=== PATIENT | female | born 1955 | race Caucasian/White ===

== ENCOUNTER 2016-06-19 01:36 | Inpatient (IN) | payer OTHER ==
[~2016-06-19 01:36] MED LIST: HYDR-902 PO; LORA1TAB PO; ONDA4TAB95 PO; ZOLP5TAB6 PO
[2016-06-19 03:36] VITALS: BP 108/66; PULSE 99; RESP 18
[2016-06-19] MEDS ORDERED: [UNRECOGNIZED DRUG - OTHER] PO (04:26)
[2016-06-19] MEDS ORDERED: ACETAMINOPHEN 325 MG TAB PO PRN (06:30)
[2016-06-19] MEDS: HYDROmorphONE 1 MG/ML SYG IV PRN ×5 (06:38→22:55)
[2016-06-19 08:00] VITALS: BP 122/69; RESP 19
[2016-06-19] MEDS: HYDROCODONE/APAP (5/325) TAB PO PRN ×4 (08:16→21:08)
[2016-06-19 09:56] LABS: EOSINOPHILS # 0.1 10^3/ul (0.0-0.5); EOSINOPHILS % 0.5 % (0.0-7.0); HEMATOCRIT 26.9 % (37.0-47.0); HEMOGLOBIN 8.7 g/dl (12.0-16.0); LYMPHOCYTES # 0.3 10^3/ul (0.8-2.9); LYMPHOCYTES % 2.6 % (15.0-51.0); MEAN CORPUSCULAR HEMOGLOBIN 26.4 pg (29.0-33.0); MEAN CORPUSCULAR HGB CONC 32.3 g/dl (32.0-37.0); MEAN CORPUSCULAR VOLUME 81.8 fl (82.0-101.0); MONOCYTE # 0.4 10^3/ul (0.3-0.9); MONOCYTES % 3.6 % (0.0-11.0); NEUTROPHIL # 10.6 10^3/ul (1.6-7.5); NEUTROPHILS % 93.3 % (39.0-77.0); PLATELET COUNT 538 10^3/UL (140-440); RED BLOOD COUNT 3.29 10^6/ul (4.20-5.40); RED CELL DISTRIBUTION WIDTH 17.4 % (11.5-14.5); UNCORRECTED WBC 11.4 10^3/ul (4.8-10.8); WHITE BLOOD COUNT 11.4 10^3/ul (4.8-10.8)
[2016-06-19 10:03] LABS: ALBUMIN 2.8 g/dl (3.3-4.9); CONDITION 1; LH ANALYZER COMMENTS 1; POTASSIUM 3.7 mmol/L (3.5-5.1)
[2016-06-19 10:06] LABS: ALBUMIN/GLOBULIN RATIO 0.63; CALCIUM 8.2 mg/dl (8.4-10.2); CREATININE 0.4 mg/dl (0.44-1.00); TOTAL PROTEIN 7.2 g/dl (6.1-8.1)
--- NOTE | 2016-06-19 13:06 | HP ---
DATE OF ADMISSION: 06/19/2016 HISTORY OF PRESENT ILLNESS: Winter Muse is an elderly female with history of esophageal cancer, h istory of esophageal stent, history of chemotherapy, Port-A-Cath, history of pneumonia, anemia, hist ory of G-tube placement and removal, taken to [facility], transferred here because the jordan ent is capitated to this hospital. The patient received Zofran, Rocephin, IV fluid, Dilaudid, and a zithromycin. PAST MEDICAL HISTORY: Please review the old chart for detailed history. Briefly, the patient has a history of esophageal CA, history of chemotherapy, history of esophageal stent, history of pneumoni a, anemia, chronic pain, dysphagia. ALLERGY HISTORY: UNCHANGED. FAMILY HISTORY: Unchanged. SOCIAL HISTORY: Unchanged. MEDICATION HISTORY: The patient's home medicines at the time of this dictation is not available. REVIEW OF SYSTEMS: HEENT: Unremarkable. RESPIRATORY: Cough, short of breath. CARDIOVASCULAR: No chest pain, palpitation. ABDOMEN: As mentioned above. EXTREMITIES: Unremarkable. PHYSICAL EXAMINATION: GENERAL: The patient is awake and alert, not in any acute respiratory distress. VITAL SIGNS: Pulse 102, blood pressure 102/66. HEAD: Atraumatic, normocephalic. Pupils equal, reactive to light. NECK: Supple. No JVD. LUNGS: A few rhonchi at bases. CARDIOVASCULAR: S1, S2 are normal. ABDOMEN: Soft, nontender. Bowel sounds present. No palpable mass or hepatosplenomegaly. No guard ing, rebound tenderness. EXTREMITIES: No cyanosis, clubbing, or edema. CENTRAL NERVOUS SYSTEM: The patient is awake and alert. No focal deficit. SKIN: The patient has a Port-A-Cath in the chest noted, right. LABORATORY DATA: Sodium 130, potassium 4.1. The patient's hemoglobin 8.6, hematocrit 26.4, platele t count 498. The patient's urinalysis was reported as negative. IMPRESSION: 1. Lung infiltrate. 2. The patient has insufficiency. 3. History of stent placement. 4. History of dyspepsia. 5. History of peptic ulcer disease. 6. History of anemia. 7. History of blood transfusion. 8. History of chemotherapy. 9. History of Port-A-Cath placement. 10. History of multiple episodes of possible aspiration pneumonia. PLAN: At this point is to continue current antibiotics, IV fluid, pain medications, PPI, and the pa tient will get oncology/hematology consultation. Dictated By: OK LOZANO MD BS/NTS Conf#: [id number] DID#: [id number]
[2016-06-19] MEDS: ALTEPLASE (CATHFLO) 2 MG INJ CATHETER PRN (16:51)
[2016-06-19 20:00] VITALS: BP 117/77; RESP 18
[2016-06-19] MEDS: CEFTRIAXONE 1 GM/50 ML (PMX) 50 ML IVPB SCH (21:07)
[2016-06-19] MEDS: AZITHROMYCIN 500MG/NS (PMX) 250 ML IVPB SCH (22:05)
[2016-06-19] MEDS: HYDROCODONE/HOMATROPINE 5ML CUP PO PRN (22:55)
[2016-06-20] MEDS: HYDROmorphONE 1 MG/ML SYG IV PRN ×6 (02:53→23:03)
[2016-06-20 05:37] LABS: EOSINOPHILS % 0.1 % (0.0-7.0); HEMATOCRIT 27.8 % (37.0-47.0); LYMPHOCYTES # 0.5 10^3/ul (0.8-2.9); LYMPHOCYTES % 4.7 % (15.0-51.0); MEAN CORPUSCULAR HEMOGLOBIN 26.7 pg (29.0-33.0); MEAN CORPUSCULAR HGB CONC 32.5 g/dl (32.0-37.0); MEAN CORPUSCULAR VOLUME 82.2 fl (82.0-101.0); MEAN PLATELET VOLUME 6.1 fl (7.4-10.4); MONOCYTE # 0.4 10^3/ul (0.3-0.9); MONOCYTES % 4.2 % (0.0-11.0); NEUTROPHIL # 9.4 10^3/ul (1.6-7.5); PLATELET COUNT 559 10^3/UL (140-440); RED BLOOD COUNT 3.39 10^6/ul (4.20-5.40); UNCORRECTED WBC 10.3 10^3/ul (4.8-10.8); WHITE BLOOD COUNT 10.3 10^3/ul (4.8-10.8)
[2016-06-20 05:55] LABS: CONDITION 1; LH ANALYZER COMMENTS 1
[2016-06-20] MEDS: PANTOPRAZOLE 40 MG INJ IV SCH (05:59)
[2016-06-20] MEDS: ALTEPLASE (CATHFLO) 2 MG INJ CATHETER PRN (06:22)
[2016-06-20] MEDS: HYDROCODONE/HOMATROPINE 5ML CUP PO PRN ×2 (07:46→17:20)
[2016-06-20 08:00] VITALS: BP 129/79; PULSE 107; RESP 18
[2016-06-20] MEDS: HYDROCODONE/APAP (5/325) TAB PO PRN (08:23)
--- NOTE | 2016-06-20 12:26 | CONS ---
Date/Time of Note Date/Time of Note DATE: 06/20/16 TIME: 12:13 Assessment/Plan Assessment/Plan Chief Complaint/Hosp Course The patient is a 60 year old woman with locally advanced esophageal cancer with history of radiation pneumonitis, most recently on xeloda 1500 mg PO BID, now readmitted for pneumonia. - Ok to hold xeloda for now while being treated for pneumonia, patient was not taking at home for the past 4 days due to lack of appetite and inability to eat. Discussed with Dr. Espinosa, thought perhaps CXR more suggestive of atelectasis than pneumonia. Will order CT chest to further evaluate. During her last hospitalization, CT was read as radiation pneumonitis, which was not a new finding but superimposed infection could not be ruled out; given clinical improvement with antibiotics, we did think she likely had a superimposed infection. - continue antibiotics for pneumonia per primary MD - will continue to follow Problems: Consultation Date/Type/Reason Admit Date/Time Jun 19, 2016 at 03:07 Date of Consultation: Jun 20, 2016 Reason for Consultation Hematology/Oncology Hx of Present Illness The patient is a 60 year old woman with locally advanced esophageal cancer, originally diagnosed in 2014 with tumor on EGD extending from 30cm to the gastroesophageal junction at 40 cm, with circumferential biopsies showing adenocarcinoma, moderate to poorly differentiated. She subsequently had an esophageal metallic stent placed on March 10, 2015. She was stared on chemotherapy 05/2015 with carboplatin/taxol until 10/2014, with consolidation with radiation 10/02/2015 until 11/15/15. She reportedly was later switched to FOLFOX after disease progression. She was seen in the hospital in February 2016 when she was admitted for pneumonia. Her CT showed evidence of radiation pneumonitis, which was not a new finding, and given clinical improvement with antibiotics, we did think she had a superimposed infection. She subsequently received FOLFOX on 03/25/16 then was switched to xeloda 1500 mg po BID on by Dr. Davila. She was seen by Dr. Pleitez on 05/06/16 at [facility] who reviewed the latest scans and felt that the tumor is not resectable as it was too extensive and too bulky against the back of the heart and into the roxana and up against the descending aorta. The patient was transferred from [facility], where she was thought to have recurrent pneumonia. She states that she started feeling short of breath for the past 2 weeks with loss of appetite, to the point where she felt that she "could not breathe at all." She states that she stopped taking xeloda 4 days ago because she had no appetite and was not eating. She denies vomiting. She has not been able to eat but has only had ensure and has lost 20 pounds over the past month. She previously had a feeding tube but it was removed because she states that it was painful. Past Medical History Hypertension Esophageal cancer as above Peptic ulcer disease Multiple episodes of possible aspiration pneumonia Family History Significant Family History: cancer (brother wtih colon cancer, aunt with leukemia, another aunt with esophageal/throat/stomach cancer) Social History Alcohol Use: none Smoking Status: Former smoker Exam/Review of Systems Vital Signs Vitals Vital Signs Date Time Temp Pulse Resp B/P Pulse Ox O2 Delivery O2 Flow Rate FiO2 06/20/16 08:00 99.1 107 18 129/79 97 Room Air Intake and Output 06/19/16 06/19/16 06/20/16 15:00 23:00 07:00 Intake Total 50 ml 550 ml Balance 50 ml 550 ml Exam Constitutional: alert Psych: no complaints Head: normocephalic Eyes: nl conjunctiva Neck: non-tender, supple Respiratory: crackles/rales, wheezing Cardiovascular: regular rate and rhythm Gastrointestinal: non-tender, soft Musculoskeletal: nl extremities to inspection Neurological: CRITICAL CARE NURSE PRACTITIONER II-XII intact Results 06/18/16 CXR at [facility] 1. Increased opacities in the medial right lower lobe, concerning for infiltrates. The patient does have a known history of an esophageal mass. Consider CT chest for better evaluation. 2. Obscured bilateral costophrenic angles, for which underlying small pleural effusions cannot be excluded. 3. A metallic esophageal stent and right-sided IJ Port-A-Cath remain unchanged. Result Diagram: 06/20/16 0455 06/19/16 0920 Results 24 hrs Laboratory Tests Test 06/20/16 04:55 Basophils # 0.0 Basophils % 0.0 Blood Morphology Comment Eosinophils # 0.0 Eosinophils % 0.1 Hematocrit 27.8 L Hemoglobin 9.0 L Lymphocytes # 0.5 L Lymphocytes % 4.7 L Mean Corpuscular Hemoglobin 26.7 L Mean Corpuscular Hemoglobin Concent 32.5 Mean Corpuscular Volume 82.2 Mean Platelet Volume 6.1 L Monocytes # 0.4 Monocytes % 4.2 Neutrophils # 9.4 H Neutrophils % 91.0 H Nucleated Red Blood Cells # 0.0 Nucleated Red Blood Cells % 0.0 Platelet Count 559 H Red Blood Count 3.39 L Red Cell Distribution Width 17.0 H White Blood Count 10.3 Medications Medications Current Medications Ceftriaxone Sodium 50 ml @ 100 mls/hr Q24H IVPB Last administered on at 21:07; Admin Dose 100 MLS/HR; Start 06/19/16 at 21:00 Azithromycin (Zithromax 500mg/ NS (Pmx)) 250 ml @ 250 mls/hr Q24H IVPB Last administered on 06/19/16at 22:05; Admin Dose 250 MLS/HR; Start 06/19/16 at 22: 00 Ondansetron HCl (Zofran Inj) 4 mg Q4H PRN IV NAUSEA AND/OR VOMITING; Start at 06:30 Pantoprazole (Protonix Iv) 40 mg DAILY@06 IV Last administered on 06/20/16at 05 :59; Admin Dose 40 MG; Start 06/20/16 at 06:00 Acetaminophen (Tylenol Tab) 650 mg Q6H PRN PO PAIN AND OR ELEVATED TEMP; Start 06/19/16 at 06:30 Acetaminophen/ Hydrocodone Bitart ([place] (5/325)) 1 tab Q4H PRN PO FOR MODERATE PAIN Last administered on 06/20/16at 08:23; Admin Dose 1 TAB; Start at 06:30 Hydromorphone HCl (Dilaudid) 1 mg Q4H PRN IV FOR SEVERE PAIN Last administered on 06/20/16at 10:50; Admin Dose 1 MG; Start 06/19/16 at 06:30 Zolpidem Tartrate (Ambien) 5 mg HS PRN PO INSOMNIA; Start 06/19/16 at 06:30 Hydrocodone Bit/ Homatropine Methylb (Hycodan Liquid) 5 ml Q6 PRN PO COUGH Last administered on 06/20/16at 07:46; Admin Dose 5 ML; Start 06/19/16 at 22:30 EVERTON CELIS MD Jun 20, 2016 12:23
--- NOTE | 2016-06-20 16:55 | PN ---
Date/Time of Note Date/Time of Note DATE: 06/20/16 TIME: 16:54 Assessment/Plan VTE Prophylaxis VTE Prophylaxis Intervention: other Lines/Catheters [facility]from [facility] PORTACATH Urinary Cath still in place: No Assessment/Plan Chief Complaint/Hosp Course IMPRESSION: 1. Lung infiltrate. 2. The patient has insufficiency. 3. History of stent placement. 4. History of dyspepsia. 5. History of peptic ulcer disease. 6. History of anemia. 7. History of blood transfusion. 8. History of chemotherapy. 9. History of Port-A-Cath placement. 10. History of multiple episodes of possible aspiration pneumonia. PLAN ANTIBIOTIC,PER ONCOLOGY Problems: Subjective 24 Hr Interval Summary Respiratory: shortness of breath (BETTER) Gastrointestinal: no complaints Exam/Review of Systems Vital Signs Vitals Vital Signs Date Time Temp Pulse Resp B/P Pulse Ox O2 Delivery O2 Flow Rate FiO2 06/20/16 08:00 99.1 107 18 129/79 97 Room Air Intake and Output 06/19/16 06/19/16 06/20/16 14:59 22:59 06:59 Intake Total 50 ml 550 ml Balance 50 ml 550 ml Exam Respiratory: clear to auscultation Cardiovascular: regular rate and rhythm Gastrointestinal: soft Musculoskeletal: nl extremities to inspection Extremities: normal pulses Results Result Diagram: 06/20/16 0455 06/19/16 0920 Results 24 hrs Laboratory Tests Test 06/20/16 04:55 Basophils # 0.0 Basophils % 0.0 Blood Morphology Comment Eosinophils # 0.0 Eosinophils % 0.1 Hematocrit 27.8 L Hemoglobin 9.0 L Lymphocytes # 0.5 L Lymphocytes % 4.7 L Mean Corpuscular Hemoglobin 26.7 L Mean Corpuscular Hemoglobin Concent 32.5 Mean Corpuscular Volume 82.2 Mean Platelet Volume 6.1 L Monocytes # 0.4 Monocytes % 4.2 Neutrophils # 9.4 H Neutrophils % 91.0 H Nucleated Red Blood Cells # 0.0 Nucleated Red Blood Cells % 0.0 Platelet Count 559 H Red Blood Count 3.39 L Red Cell Distribution Width 17.0 H White Blood Count 10.3 Medications Medications Current Medications Ceftriaxone Sodium 50 ml @ 100 mls/hr Q24H IVPB Last administered on at 21:07; Admin Dose 100 MLS/HR; Start 06/19/16 at 21:00 Azithromycin (Zithromax 500mg/ NS (Pmx)) 250 ml @ 250 mls/hr Q24H IVPB Last administered on 06/19/16at 22:05; Admin Dose 250 MLS/HR; Start 06/19/16 at 22: 00 Ondansetron HCl (Zofran Inj) 4 mg Q4H PRN IV NAUSEA AND/OR VOMITING; Start at 06:30 Pantoprazole (Protonix Iv) 40 mg DAILY@06 IV Last administered on 06/20/16at 05 :59; Admin Dose 40 MG; Start 06/20/16 at 06:00 Acetaminophen (Tylenol Tab) 650 mg Q6H PRN PO PAIN AND OR ELEVATED TEMP; Start 06/19/16 at 06:30 Acetaminophen/ Hydrocodone Bitart ([place] (5/325)) 1 tab Q4H PRN PO FOR MODERATE PAIN Last administered on 06/20/16at 08:23; Admin Dose 1 TAB; Start at 06:30 Hydromorphone HCl (Dilaudid) 1 mg Q4H PRN IV FOR SEVERE PAIN Last administered on 06/20/16at 14:45; Admin Dose 1 MG; Start 06/19/16 at 06:30 Zolpidem Tartrate (Ambien) 5 mg HS PRN PO INSOMNIA; Start 06/19/16 at 06:30 Hydrocodone Bit/ Homatropine Methylb (Hycodan Liquid) 5 ml Q6 PRN PO COUGH Last administered on 06/20/16at 07:46; Admin Dose 5 ML; Start 06/19/16 at 22:30 OK LOZANO MD Jun 20, 2016 16:55
[2016-06-20] MEDS: ONDANSETRON 4 MG INJ IV PRN (17:20)
[2016-06-20] MEDS: ALBUTEROL/IPRATROPIUM (NEB) 3 ML AMP HHN PRN (19:32)
[2016-06-20 20:00] VITALS: BP 113/73; PULSE 104; RESP 20
[2016-06-20] MEDS: CEFTRIAXONE 1 GM/50 ML (PMX) 50 ML IVPB SCH (21:02)
[2016-06-20] MEDS: AZITHROMYCIN 500MG/NS (PMX) 250 ML IVPB SCH (21:52)
--- NOTE | 2016-06-20 23:06 | RADRPT ---
PROCEDURE: CT Chest without contrast. CLINICAL INDICATION: Shortness of breath. TECHNIQUE: Helical axial sections were obtained through the chest without intravenous contrast enh ancement. Coronal and sagittal reformatted images were obtained from the axial source images. Total exam DLP is 167.70 mGy-cm. CTDIvol is 4.48 mGy. COMPARISON: Contrast enhanced CT scan of the chest dated 02/21/2016. FINDINGS: There is dense consolidation in both lung bases posteriorly, worse than seen previously. Bilateral hilar masses cannot be definitively excluded. The aerated lungs demonstrate no nodule. There is a stent in the esophagus. The stent may be occluded proximally due to a foreign body or tu mor ingrowth. Soft tissue is noted at this site measuring approximately 1.8 x 1.8 x 2.0 cm in AP, t ransverse, and cranial caudal dimensions. In addition, multiple gas bubbles are present to the right of the esophagus which may indicate necrotic tumor. There is a right internal jugular vein implanted port central venous catheter with the tip in the ca voatrial junction region. The heart size is normal. There is coronary artery calcification. Calci fication is present in the aorta consistent with atherosclerosis. There is a large right pleural effusion and a small left pleural effusion. There is no pericardial effusion. Images through the upper abdomen demonstrate normal visualized portions of the liver, spleen, and ad renals. The esophageal stent is visualized in the upper stomach. There is an acute superior endplate fracture of the L1 vertebral body with approximately 40% loss of height. There are degenerative changes of the spine. There are old healed left rib fractures. IMPRESSION: 1. Worse appearance of the lungs. 2. Possible bilateral hilar masses. 3. Esophageal stent in satisfactory position. The stent may be occluded proximally due to a foreig n body or tumor ingrowth. Clinical correlation advised as there is gas and fluid in dilated esophag us proximal to the stent. 4. Gas bubbles to the right of the esophagus which may indicate necrotic tumor. 5. Central venous catheter in satisfactory position. 6. Atherosclerosis. 7. Large right pleural effusion and small left pleural effusion. 8. Acute superior endplate fracture of L1 vertebral body with approximately 40% loss of height. Th is may be due to neoplasm at this site. 9. Old healed left rib fractures. RPTAT: QQ .Jarrod Mckoy MD, MD Date Time Electronically viewed and signed by .Jarrod Mckoy MD, on 06/20/2016 23:06 .R/
--- NOTE | 2016-06-20 23:14 | RADRPT ---
PROCEDURE: XR Chest. CLINICAL INDICATION: Shortness of breath. TECHNIQUE: Two views. Frontal and lateral. COMPARISON: 04/19/2016 FINDINGS: There is a right internal jugular vein implanted port central venous catheter with the tip in the ca voatrial junction. The heart size is normal. There is calcification in the aorta consistent with a therosclerosis. There is an esophageal stent in satisfactory position, unchanged. There is dense consolidation or a mass in the right mid and lower lung zones, larger than seen previously. There is left basilar atel ectasis. The lungs are otherwise clear. There is a moderate right pleural effusion and small left pleural effusion. There is no pneumothorax. IMPRESSION: 1. Right chest Port-A-Cath and esophageal stent noted as seen previously. 2. Worse appearance of the right lung with mass or consolidation. 3. Bilateral pleural effusions, right larger than left. RPTAT: QQ .aJrrod Mckoy MD, MD Date Time Electronically viewed and signed by .Jarrod Mckoy MD, MD on 06/20/2016 23:14 .R/
[2016-06-21] MEDS: HYDROCODONE/HOMATROPINE 5ML CUP PO PRN ×4 (01:17→21:56)
[2016-06-21] MEDS: HYDROmorphONE 1 MG/ML SYG IV PRN ×6 (02:58→23:38)
[2016-06-21] MEDS: PANTOPRAZOLE 40 MG INJ IV SCH (05:40)
[2016-06-21 07:30] VITALS: BP 118/94; PULSE 104; RESP 20
[2016-06-21] MEDS: HYDROCODONE/APAP (5/325) TAB PO PRN ×3 (08:31→20:53)
--- NOTE | 2016-06-21 13:05 | CONS ---
Date/Time of Note Date/Time of Note DATE: 06/21/16 TIME: 13:01 Assessment/Plan Assessment/Plan Chief Complaint/Hosp Course The patient is a 60 year old woman with locally advanced esophageal cancer with history of radiation pneumonitis, most recently on xeloda 1500 mg PO BID, now readmitted for pneumonia. - Ok to hold xeloda for now while being treated for pneumonia, patient was not taking at home for the past 4 days due to lack of appetite and inability to eat. - CT chest 06/20/16 shows dense consolidation in both lung bases posteriorly, worse than seen previously, with large right pleural effusion and a small left pleural effusion. - Continue antibiotics per primary MD - I have ordered an ultrasound guided thoracentesis for 06/22/16 with IR given large right pleural effusion seen on CT, as may be contributing to dyspnea. Fluid cytology, protein, LDH, glucose and pH ordered, along with serum LDH. Coags ordered for tomorrow a.m., patient NPO after midnight. - will continue to follow Problems: Consultation Date/Type/Reason Admit Date/Time Jun 19, 2016 at 03:07 Initial Consult Date 06/21/16 Type of Consultation: Hematology/Oncology 24 HR Interval Summary Free Text/Dictation The patient states that her breathing and cough are roughly the same as on admission. Exam/Review of Systems Vital Signs Vitals Vital Signs Date Time Temp Pulse Resp B/P Pulse Ox O2 Delivery O2 Flow Rate FiO2 06/21/16 07:30 99.5 104 20 118/94 95 Room Air Intake and Output 06/20/16 06/20/16 06/21/16 15:00 23:00 07:00 Intake Total 980 ml 200 ml Balance 980 ml 200 ml Exam Constitutional: alert Psych: no complaints Head: normocephalic Eyes: nl conjunctiva Neck: non-tender, supple Respiratory: crackles/rales, wheezing Cardiovascular: regular rate and rhythm Gastrointestinal: non-tender, soft Musculoskeletal: nl extremities to inspection Neurological: RAW HIDE TRIMMER II-XII intact Results CT chest non-contrast 06/20/16 There is dense consolidation in both lung bases posteriorly, worse than seen previously. Bilateral hilar masses cannot be definitively excluded. The aerated lungs demonstrate no nodule. There is a stent in the esophagus. The stent may be occluded proximally due to a foreign body or tumor ingrowth. Soft tissue is noted at this site measuring approximately 1.8 x 1.8 x 2.0 cm in AP, transverse, and cranial caudal dimensions. In addition, multiple gas bubbles are present to the right of the esophagus which may indicate necrotic tumor. There is a right internal jugular vein implanted port central venous catheter with the tip in the cavoatrial junction region. The heart size is normal. There is coronary artery calcification. Calcification is present in the aorta consistent with atherosclerosis. There is a large right pleural effusion and a small left pleural effusion. There is no pericardial effusion. Images through the upper abdomen demonstrate normal visualized portions of the liver, spleen, and adrenals. The esophageal stent is visualized in the upper stomach. There is an acute superior endplate fracture of the L1 vertebral body with approximately 40% loss of height. There are degenerative changes of the spine. There are old healed left rib fractures. IMPRESSION: 1. Worse appearance of the lungs. 2. Possible bilateral hilar masses. 3. Esophageal stent in satisfactory position. The stent may be occluded proximally due to a foreign body or tumor ingrowth. Clinical correlation advised as there is gas and fluid in dilated esophagus proximal to the stent. 4. Gas bubbles to the right of the esophagus which may indicate necrotic tumor. 5. Central venous catheter in satisfactory position. 6. Atherosclerosis. 7. Large right pleural effusion and small left pleural effusion. 8. Acute superior endplate fracture of L1 vertebral body with approximately 40 % loss of height. This may be due to neoplasm at this site. 9. Old healed left rib fractures. Result Diagram: 06/20/16 0455 06/19/16 0920 Medications Medications Current Medications Ceftriaxone Sodium 50 ml @ 100 mls/hr Q24H IVPB Last administered on at 21:02; Admin Dose 100 MLS/HR; Start 06/19/16 at 21:00 Azithromycin (Zithromax 500mg/ NS (Pmx)) 250 ml @ 250 mls/hr Q24H IVPB Last administered on 06/20/16at 21:52; Admin Dose 250 MLS/HR; Start 06/19/16 at 22: 00 Ondansetron HCl (Zofran Inj) 4 mg Q4H PRN IV NAUSEA AND/OR VOMITING Last administered on 06/20/16at 17:20; Admin Dose 4 MG; Start 06/19/16 at 06:30 Pantoprazole (Protonix Iv) 40 mg DAILY@06 IV Last administered on 06/21/16at 05 :40; Admin Dose 40 MG; Start 06/20/16 at 06:00 Acetaminophen (Tylenol Tab) 650 mg Q6H PRN PO PAIN AND OR ELEVATED TEMP; Start 06/19/16 at 06:30 Acetaminophen/ Hydrocodone Bitart ([place] (5/325)) 1 tab Q4H PRN PO FOR MODERATE PAIN Last administered on 06/21/16at 08:31; Admin Dose 1 TAB; Start at 06:30 Hydromorphone HCl (Dilaudid) 1 mg Q4H PRN IV FOR SEVERE PAIN Last administered on 06/21/16at 11:20; Admin Dose 1 MG; Start 06/19/16 at 06:30 Zolpidem Tartrate (Ambien) 5 mg HS PRN PO INSOMNIA; Start 06/19/16 at 06:30 Hydrocodone Bit/ Homatropine Methylb (Hycodan Liquid) 5 ml Q6 PRN PO COUGH Last administered on 06/21/16at 08:29; Admin Dose 5 ML; Start 06/19/16 at 22:30 EVERTON CELIS MD Jun 21, 2016 13:05
--- NOTE | 2016-06-21 18:19 | PN ---
Date/Time of Note Date/Time of Note DATE: 06/21/16 TIME: 18:18 Assessment/Plan VTE Prophylaxis VTE Prophylaxis Intervention: other Lines/Catheters IV [facility]from [facility] PORTACATH Urinary Cath still in place: No Assessment/Plan Chief Complaint/Hosp Course IMPRESSION: 1. Lung infiltrate. 2. The patient has insufficiency. 3. History of stent placement. 4. History of dyspepsia. 5. History of peptic ulcer disease. 6. History of anemia. 7. History of blood transfusion. 8. History of chemotherapy. 9. History of Port-A-Cath placement. 10. History of multiple episodes of possible aspiration pneumonia. PLAN ANTIBIOTIC,PER ONCOLOGY Problems: Subjective 24 Hr Interval Summary Cardiovascular: no complaints Gastrointestinal: no complaints Genitourinary: no complaints Exam/Review of Systems Vital Signs Vitals Vital Signs Date Time Temp Pulse Resp B/P Pulse Ox O2 Delivery O2 Flow Rate FiO2 06/21/16 07:30 99.5 104 20 118/94 95 Room Air Intake and Output 06/20/16 06/20/16 06/21/16 15:00 23:00 07:00 Intake Total 980 ml 200 ml Balance 980 ml 200 ml Exam Neck: supple Respiratory: clear to auscultation Cardiovascular: regular rate and rhythm Gastrointestinal: soft Musculoskeletal: nl extremities to inspection Results Result Diagram: 06/20/16 0455 06/19/16 0920 Medications Medications Current Medications Ceftriaxone Sodium 50 ml @ 100 mls/hr Q24H IVPB Last administered on at 21:02; Admin Dose 100 MLS/HR; Start 06/19/16 at 21:00 Azithromycin (Zithromax 500mg/ NS (Pmx)) 250 ml @ 250 mls/hr Q24H IVPB Last administered on 06/20/16at 21:52; Admin Dose 250 MLS/HR; Start 06/19/16 at 22: 00 Ondansetron HCl (Zofran Inj) 4 mg Q4H PRN IV NAUSEA AND/OR VOMITING Last administered on 06/20/16at 17:20; Admin Dose 4 MG; Start 06/19/16 at 06:30 Pantoprazole (Protonix Iv) 40 mg DAILY@06 IV Last administered on 06/21/16at 05 :40; Admin Dose 40 MG; Start 06/20/16 at 06:00 Acetaminophen (Tylenol Tab) 650 mg Q6H PRN PO PAIN AND OR ELEVATED TEMP; Start 06/19/16 at 06:30 Acetaminophen/ Hydrocodone Bitart ([place] (5/325)) 1 tab Q4H PRN PO FOR MODERATE PAIN Last administered on 06/21/16 16:37; Admin Dose 1 TAB; Start at 06:30 Hydromorphone HCl (Dilaudid) 1 mg Q4H PRN IV FOR SEVERE PAIN Last administered on 06/21/16at 15:22; Admin Dose 1 MG; Start 06/19/16 at 06:30 Zolpidem Tartrate (Ambien) 5 mg HS PRN PO INSOMNIA; Start 06/19/16 at 06:30 Hydrocodone Bit/ Homatropine Methylb (Hycodan Liquid) 5 ml Q6 PRN PO COUGH Last administered on 06/21/16 15:22; Admin Dose 5 ML; Start 06/19/16 at 22:30 OK LOZANO MD Jun 21, 2016 18:19
[2016-06-21 20:00] VITALS: BP 104/57; PULSE 103; RESP 20
[2016-06-21] MEDS: CEFTRIAXONE 1 GM/50 ML (PMX) 50 ML IVPB SCH (20:53)
[2016-06-21] MEDS: AZITHROMYCIN 500MG/NS (PMX) 250 ML IVPB SCH (21:57)
[2016-06-21] MEDS: ZOLPIDEM 5 MG TAB PO PRN (22:02)
[2016-06-22] MEDS: ALBUTEROL/IPRATROPIUM (NEB) 3 ML AMP HHN PRN ×4 (01:44→19:50)
[2016-06-22] MEDS: HYDROmorphONE 1 MG/ML SYG IV PRN ×5 (04:14→20:02)
[2016-06-22 06:23] LABS: INR 1.2; PROTIME 15.3 Sec (12.2-14.2); PT RATIO 1.2
[2016-06-22] MEDS: PANTOPRAZOLE 40 MG INJ IV SCH (06:30)
[2016-06-22 08:00] VITALS: BP 117/74; PULSE 108; RESP 18
[2016-06-22] MEDS ORDERED: LIDOCAINE 1% (MPF) 5 ML VIAL ONE (14:15)
[2016-06-22] MEDS: ACETYLCYSTEINE 20% 4 ML VIAL NEB SCH ×3 (14:30→19:50)
--- NOTE | 2016-06-22 15:17 | RADRPT ---
PROCEDURE: XR Chest. CLINICAL INDICATION: Post thoracentesis TECHNIQUE: Anterior chest x-ray. COMPARISON: 06/20/2016 FINDINGS: There is interval decrease in right pleural effusion. Right perihilar lung mass is unchanged. Right-sided Port-A-Cath catheter is unchanged. There is no evidence of pneumothorax. The heart size is normal. There is atherosclerotic calcification of the aorta. Metallic esophageal stent is seen from the level of the aortic arch into the stomach. This finding is unchanged from previous exam. There is moderate degenerative change of bilateral shoulder joints. IMPRESSION: 1. Interval thoracentesis, without evidence of pneumothorax. 2. Interval decrease in right pleural effusion. 3. Large right perihilar soft tissue mass unchanged. RPTAT: II .Parish Liang MD, Date Time Electronically viewed and signed by .Parish Liang MD, MD on 06/22/2016 15:16 .M/
--- NOTE | 2016-06-22 16:06 | PN ---
Date/Time of Note Date/Time of Note DATE: 06/22/16 TIME: 16:05 Assessment/Plan VTE Prophylaxis VTE Prophylaxis Intervention: other Lines/Catheters IV C[facility] Type (from [facility] port a cath Urinary Cath still in place: No Assessment/Plan Chief Complaint/Hosp Course IMPRESSION: 1. Lung infiltrate./pleural effusion s/p thoracentesis 2. The patient has res insufficiency. 3. History of stent placement. 4. History of dyspepsia. 5. History of peptic ulcer disease. 6. History of anemia. 7. History of blood transfusion. 8. History of chemotherapy. 9. History of Port-A-Cath placement. 10. History of multiple episodes of possible aspiration pneumonia. PLAN ANTIBIOTIC,PER ONCOLOGY ck pleural report Problems: Subjective 24 Hr Interval Summary Respiratory: shortness of breath (better) Exam/Review of Systems Vital Signs Vitals Vital Signs Date Time Temp Pulse Resp B/P Pulse Ox O2 Delivery O2 Flow Rate FiO2 06/22/16 10:18 100 18 96 21 06/22/16 08:00 99.2 117/74 06/21/16 07:30 Room Air Intake and Output 06/21/16 06/21/16 06/22/16 15:00 23:00 07:00 Intake Total 960 ml 540 ml Balance 960 ml 540 ml Exam Respiratory: diminished breath sounds Cardiovascular: regular rate and rhythm Gastrointestinal: soft Musculoskeletal: nl extremities to inspection Results Result Diagram: 06/20/16 0455 06/19/16 0920 Results 24 hrs Laboratory Tests Test 06/22/16 05:32 INR International Normalized Ratio 1.20 Lactate Dehydrogenase 280 L Prothrombin Time 15.3 H Prothrombin Time Ratio 1.2 Medications Medications Current Medications Ceftriaxone Sodium 50 ml @ 100 mls/hr Q24H IVPB Last administered on at 20:53; Admin Dose 100 MLS/HR; Start 06/19/16 at 21:00 Azithromycin (Zithromax 500mg/ NS (Pmx)) 250 ml @ 250 mls/hr Q24H IVPB Last administered on 06/21/16at 21:57; Admin Dose 250 MLS/HR; Start 06/19/16 at 22: 00 Ondansetron HCl (Zofran Inj) 4 mg Q4H PRN IV NAUSEA AND/OR VOMITING Last administered on 06/20/16at 17:20; Admin Dose 4 MG; Start 06/19/16 at 06:30 Pantoprazole (Protonix Iv) 40 mg DAILY@06 IV Last administered on 06/22/16 06 :30; Admin Dose 40 MG; Start 06/20/16 at 06:00 Acetaminophen (Tylenol Tab) 650 mg Q6H PRN PO PAIN AND OR ELEVATED TEMP; Start 06/19/16 at 06:30 Acetaminophen/ Hydrocodone Bitart ([place] (5/325)) 1 tab Q4H PRN PO FOR MODERATE PAIN Last administered on 06/21/16at 20:53; Admin Dose 1 TAB; Start at 06:30 Hydromorphone HCl (Dilaudid) 1 mg Q4H PRN IV FOR SEVERE PAIN Last administered on 06/22/16at 15:56; Admin Dose 1 MG; Start 06/19/16 at 06:30 Zolpidem Tartrate (Ambien) 5 mg HS PRN PO INSOMNIA Last administered on 22:02; Admin Dose 5 MG; Start 06/19/16 at 06:30 Hydrocodone Bit/ Homatropine Methylb (Hycodan Liquid) 5 ml Q6 PRN PO COUGH Last administered on 06/21/16at 21:56; Admin Dose 5 ML; Start 06/19/16 at 22:30 [place] LOZANO MD Jun 22, 2016 16:06
[2016-06-22 16:51] LABS: FLUID GLUCOSE 78 mg/dl
[2016-06-22 16:52] LABS: FLUID LD 525 U/L; FLUID TOTAL PROTEIN 4.2 g/dl; FLUID TYPE PLEURAL FLUID
[2016-06-22 17:49] LABS: FLUID APPEARANCE HAZY; FLUID TYPE PLEURAL; FLUID WBC'S 866 /cmm
[2016-06-22 17:50] LABS: FLUID LYMPHOCYTES 32 %; FLUID MONOCYTES 28 %; FLUID NEUTROPHILS 40 %; FLUID RBC EST 1+
--- NOTE | 2016-06-22 18:34 | RADRPT ---
PROCEDURE: Ultrasound guided thoracentesis CLINICAL INDICATION: Pleural effusion TECHNIQUE: Multiple sonographic images were obtained through the patient's chest. A site in the aida douglass's right lower chest was selected and marked ink pen. The area was prepped and draped in the u sual sterile fashion. The skin and subcutaneous tissues were anesthetized with 10 cc of 1% lidocain e. A a 6-Kyrgyz 10 cm long thoracentesis needle was advanced into the pleural space and the introduc er was connected to a vacuum drainage system. A total of 850 cc of clear yellow fluid was drained. The patient tolerated the procedure well. The specimen was sent for laboratory evaluation. COMPARISON: Radiograph dated 06/20/2016 FINDINGS: Anechoic fluid visualized in the chest cavity on ultrasound. IMPRESSION: 1. Successful ultrasound-guided thoracentesis without immediate complication. RPTAT: QQ .Parish Liang MD, Date Time Electronically viewed and signed by .Parish Liang MD, on 06/22/2016 18:33 .M/
[2016-06-22] MEDS ORDERED: ALTEPLASE (CATHFLO) 2 MG INJ CATHETER PRN (19:30)
[2016-06-22] MEDS: HYDROCODONE/HOMATROPINE 5ML CUP PO PRN (19:43)
[2016-06-22] MEDS: CEFTRIAXONE 1 GM/50 ML (PMX) 50 ML IVPB SCH (20:02)
[2016-06-22] MEDS: ZOLPIDEM 5 MG TAB PO PRN (20:02)
[2016-06-22 20:20] VITALS: BP 108/64; PULSE 110; RESP 18
[2016-06-22] MEDS: AZITHROMYCIN 500MG/NS (PMX) 250 ML IVPB SCH (21:33)
[2016-06-23] MEDS: HYDROmorphONE 1 MG/ML SYG IV PRN ×6 (00:08→20:16)
[2016-06-23] MEDS: ACETYLCYSTEINE 20% 4 ML VIAL NEB SCH ×4 (01:51→20:36)
[2016-06-23] MEDS: ALBUTEROL/IPRATROPIUM (NEB) 3 ML AMP HHN PRN ×3 (02:56→20:36)
[2016-06-23] MEDS: PANTOPRAZOLE 40 MG INJ IV SCH (05:14)
[2016-06-23 06:18] LABS: EOSINOPHILS % 0.1 % (0.0-7.0); HEMATOCRIT 28.1 % (37.0-47.0); HEMOGLOBIN 9.1 g/dl (12.0-16.0); LYMPHOCYTES # 0.4 10^3/ul (0.8-2.9); LYMPHOCYTES % 3.3 % (15.0-51.0); MEAN CORPUSCULAR HEMOGLOBIN 26.4 pg (29.0-33.0); MEAN CORPUSCULAR HGB CONC 32.5 g/dl (32.0-37.0); MEAN CORPUSCULAR VOLUME 81.3 fl (82.0-101.0); MONOCYTE # 0.6 10^3/ul (0.3-0.9); MONOCYTES % 4.5 % (0.0-11.0); NEUTROPHIL # 11.6 10^3/ul (1.6-7.5); NEUTROPHILS % 92.1 % (39.0-77.0); PLATELET COUNT 587 10^3/UL (140-440); RED BLOOD COUNT 3.46 10^6/ul (4.20-5.40); RED CELL DISTRIBUTION WIDTH 17.1 % (11.5-14.5); UNCORRECTED WBC 12.6 10^3/ul (4.8-10.8); WHITE BLOOD COUNT 12.6 10^3/ul (4.8-10.8)
[2016-06-23 06:19] LABS: ALBUMIN 2.6 g/dl (3.3-4.9); POTASSIUM 3.9 mmol/L (3.5-5.1)
[2016-06-23 06:21] LABS: BILIRUBIN,INDIRECT 0.1 mg/dl (0-1.1); BILIRUBIN,TOTAL 0.1 mg/dl (0.2-1.3); CREATININE 0.36 mg/dl (0.44-1.00)
[2016-06-23 06:22] LABS: ALBUMIN/GLOBULIN RATIO 0.6; CALCIUM 8.2 mg/dl (8.4-10.2); TOTAL PROTEIN 6.9 g/dl (6.1-8.1)
[2016-06-23 07:01] LABS: CONDITION 1; LH ANALYZER COMMENTS 1
[2016-06-23] MEDS: HYDROCODONE/HOMATROPINE 5ML CUP PO PRN ×3 (08:07→23:08)
[2016-06-23 08:22] VITALS: BP 104/61; RESP 22
[2016-06-23] MEDS: HYDROCODONE/APAP (5/325) TAB PO PRN ×2 (10:36→19:39)
--- NOTE | 2016-06-23 15:00 | PN ---
Date/Time of Note Date/Time of Note DATE: 06/23/16 TIME: 14:59 Assessment/Plan VTE Prophylaxis VTE Prophylaxis Intervention: other Lines/Catheters IV [facility] Type (from [facility] portacath Urinary Cath still in place: No Assessment/Plan Chief Complaint/Hosp Course IMPRESSION: 1. Lung infiltrate./pleural effusion s/p thoracentesis 2. The patient has res insufficiency. 3. History of stent placement. 4. History of dyspepsia. 5. History of peptic ulcer disease. 6. History of anemia. 7. History of blood transfusion. 8. History of chemotherapy. 9. History of Port-A-Cath placement. 10. History of multiple episodes of possible aspiration pneumonia. PLAN ANTIBIOTIC,PER ONCOLOGY ck pleural report lung biopsy Problems: Subjective 24 Hr Interval Summary Respiratory: shortness of breath (better) Gastrointestinal: no complaints Exam/Review of Systems Vital Signs Vitals Vital Signs Date Time Temp Pulse Resp B/P Pulse Ox O2 Delivery O2 Flow Rate FiO2 06/23/16 13:19 90 22 94 21 06/23/16 08:22 99.3 104/61 06/22/16 20:20 Room Air Intake and Output 06/22/16 06/22/16 06/23/16 15:00 23:00 07:00 Intake Total 650 ml 250 ml Balance 650 ml 250 ml Exam Neck: supple Respiratory: diminished breath sounds Cardiovascular: regular rate and rhythm Gastrointestinal: bowel sounds (+), soft Results Result Diagram: 06/23/16 0455 06/23/16 0455 Results 24 hrs Laboratory Tests Test 06/23/16 04:55 Alanine Aminotransferase (ALT/SGPT) 18 Albumin 2.6 L Albumin/Globulin Ratio 0.60 Alkaline Phosphatase 89 Anion Gap 14 Aspartate Amino Transf (AST/SGOT) 18 Basophils # 0.0 Basophils % 0.0 Blood Morphology Comment Blood Urea Nitrogen 12 Calcium Level 8.2 L Carbon Dioxide Level 27 Chloride Level 98 Creatinine 0.36 L Direct Bilirubin 0.00 Eosinophils # 0.0 Eosinophils % 0.1 Globulin 4.30 H Glucose Level 106 Hematocrit 28.1 L Hemoglobin 9.1 L Indirect Bilirubin 0.1 Lymphocytes # 0.4 L Lymphocytes % 3.3 L Mean Corpuscular Hemoglobin 26.4 L Mean Corpuscular Hemoglobin Concent 32.5 Mean Corpuscular Volume 81.3 L Mean Platelet Volume 6.0 L Monocytes # 0.6 Monocytes % 4.5 Neutrophils # 11.6 H Neutrophils % 92.1 H Nucleated Red Blood Cells # 0.0 Nucleated Red Blood Cells % 0.0 Platelet Count 587 H Potassium Level 3.9 Red Blood Count 3.46 L Red Cell Distribution Width 17.1 H Sodium Level 135 Total Bilirubin 0.1 L Total Protein 6.9 White Blood Count 12.6 #H Medications Medications Current Medications Ceftriaxone Sodium 50 ml @ 100 mls/hr Q24H IVPB Last administered on at 20:02; Admin Dose 100 MLS/HR; Start 06/19/16 at 21:00 Azithromycin (Zithromax 500mg/ NS (Pmx)) 250 ml @ 250 mls/hr Q24H IVPB Last administered on 06/22/16at 21:33; Admin Dose 250 MLS/HR; Start 06/19/16 at 22: 00 Ondansetron HCl (Zofran Inj) 4 mg Q4H PRN IV NAUSEA AND/OR VOMITING Last administered on 06/20/16 17:20; Admin Dose 4 MG; Start 06/19/16 at 06:30 Pantoprazole (Protonix Iv) 40 mg DAILY@06 IV Last administered on 06/23/16 05: 14; Admin Dose 40 MG; Start 06/20/16 at 06:00 Acetaminophen (Tylenol Tab) 650 mg Q6H PRN PO PAIN AND OR ELEVATED TEMP; Start 06/19/16 at 06:30 Acetaminophen/ Hydrocodone Bitart ([place] (5/325)) 1 tab Q4H PRN PO FOR MODERATE PAIN Last administered on 06/23/16 10:36; Admin Dose 1 TAB; Start at 06:30 Hydromorphone HCl (Dilaudid) 1 mg Q4H PRN IV FOR SEVERE PAIN Last administered on 06/23/16 12:07; Admin Dose 1 MG; Start 06/19/16 at 06:30 Zolpidem Tartrate (Ambien) 5 mg HS PRN PO INSOMNIA Last administered on 20:02; Admin Dose 5 MG; Start 06/19/16 at 06:30 Hydrocodone Bit/ Homatropine Methylb (Hycodan Liquid) 5 ml Q6 PRN PO COUGH Last administered on 06/23/16 08:07; Admin Dose 5 ML; Start 06/19/16 at 22:30 [place] LOZANO MD Jun 23, 2016 15:00
[2016-06-23 19:40] VITALS: BP 114/73; RESP 18
[2016-06-23] MEDS: CEFTRIAXONE 1 GM/50 ML (PMX) 50 ML IVPB SCH (20:19)
[2016-06-23] MEDS: AZITHROMYCIN 500MG/NS (PMX) 250 ML IVPB SCH (21:26)
[2016-06-23] MEDS: ZOLPIDEM 5 MG TAB PO PRN (21:26)
[2016-06-24] MEDS: HYDROmorphONE 1 MG/ML SYG IV PRN ×7 (00:19→22:30)
[2016-06-24] MEDS: ALBUTEROL/IPRATROPIUM (NEB) 3 ML AMP HHN PRN ×5 (01:26→20:18)
[2016-06-24] MEDS: ACETYLCYSTEINE 20% 4 ML VIAL NEB SCH ×4 (01:26→20:18)
[2016-06-24 06:04] LABS: EOSINOPHILS % 0.1 % (0.0-7.0); HEMATOCRIT 28.1 % (37.0-47.0); HEMOGLOBIN 8.9 g/dl (12.0-16.0); LYMPHOCYTES # 0.3 10^3/ul (0.8-2.9); LYMPHOCYTES % 2.7 % (15.0-51.0); MEAN CORPUSCULAR HGB CONC 31.6 g/dl (32.0-37.0); MEAN CORPUSCULAR VOLUME 82.3 fl (82.0-101.0); MEAN PLATELET VOLUME 6.2 fl (7.4-10.4); MONOCYTE # 0.4 10^3/ul (0.3-0.9); MONOCYTES % 3.1 % (0.0-11.0); NEUTROPHIL # 12.1 10^3/ul (1.6-7.5); NEUTROPHILS % 94.1 % (39.0-77.0); PLATELET COUNT 561 10^3/UL (140-440); RED BLOOD COUNT 3.42 10^6/ul (4.20-5.40); RED CELL DISTRIBUTION WIDTH 17.4 % (11.5-14.5); UNCORRECTED WBC 12.9 10^3/ul (4.8-10.8); WHITE BLOOD COUNT 12.9 10^3/ul (4.8-10.8)
[2016-06-24 06:11] LABS: CONDITION 1; LH ANALYZER COMMENTS 1
[2016-06-24] MEDS: PANTOPRAZOLE 40 MG INJ IV SCH (06:21)
[2016-06-24] MEDS ORDERED: HYDROmorphONE 1 MG/ML SYG IV ONE (07:00)
--- NOTE | 2016-06-24 07:35 | RADRPT ---
PROCEDURE: XR Chest. CLINICAL INDICATION: Lung mass TECHNIQUE: Single frontal chest x-ray. COMPARISON: 06/22/2016 FINDINGS: New focal opacity is identified in the right upper lobe inferiorly. No pneumothorax or significant pleural effusion is identified. Poorly defined retrocardiac mass is again noted, grossly unchanged. The esophageal stent and right-sided Port-A-Cath remain in place. The osseous structures are olivia rkable for scoliosis and degenerative spondylosis of the spine. IMPRESSION: 1. New focal opacity is identified in the right upper lobe inferiorly, concerning for pneumonia. 2. Poorly defined retrocardiac mass is again seen, grossly unchanged. RPTAT: PP .Misael Cook MD, MD Date Time Electronically viewed and signed by .Misael Cook MD, on 06/24/2016 07:34 .R/
[2016-06-24 07:55] LABS: AADO2 Arterial 46.6 mmHg (7.0-24.0); Allen Test ACCEPTAB; Arterial Base Excess 2.1 mmol/L (-3.0-3); Arterial COHb 0.4 % (0.0-3.0); Arterial Fraction of Oxyhgb 94.8 % (93.0-99.0); Arterial HCO3 26.3 mmol/L (22.0-26.0); Arterial MetHb 0.2 % (0.0-1.5); Arterial Total Hemglobin 8.2 g/dl (12.0-18.0); MODE NASAL CANNULA
[2016-06-24 08:00] VITALS: BP 153/87; PULSE 119; RESP 22
[2016-06-24] MEDS: HYDROCODONE/APAP (5/325) TAB PO PRN (10:39)
[2016-06-24] MEDS: HYDROCODONE/HOMATROPINE 5ML CUP PO PRN ×3 (10:39→23:48)
[2016-06-24] MEDS: PIPER-TAZO 3.375 GM IV (PMX) 100 ML IVPB SCH ×3 (13:51→23:48)
--- NOTE | 2016-06-24 14:03 | CONS ---
DATE OF ADMISSION: 06/19/2016 DATE OF CONSULTATION: TYPE OF CONSULTATION: Pulmonary. REASON FOR CONSULTATION: Shortness of breath. Thank you, Dr. Espinosa, for this consultation. HISTORY OF PRESENT ILLNESS: This is an unfortunate 60-year-old lady with history of esophageal canc er, multiple admissions [facility], presented with increasing shortness of breath, nausea, vomiting, decreased p.o. intake, orthopnea, PND. No fever, no chills, no chest cinda n, no palpitations. She has remote tobacco history. She has received chemotherapy and a possible es ophageal cancer with stent placement. Chest CTs have confirmed a large right lower lobe and mediastinal mass consistent with either esopha geal tumor or lung cancer. PAST MEDICAL HISTORY: As above. MEDICATIONS: Per chart. ALLERGIES: NONE. SOCIAL HISTORY: Ex-smoker, no alcohol, no history of drug use. FAMILY HISTORY: Noncontributory. SYSTEMS REVIEW: A 12-point review of systems was negative other than that mentioned above. PHYSICAL EXAMINATION: GENERAL: Thin lady, comfortable at rest, no acute distress. Portable rales. VITAL SIGNS: Temperature 100.5, pulse is 100, blood pressure 153/87, O2 saturation 96% on 2 liters. NECK: Supple. No JVD or lymphadenopathy. CARDIAC: S1, S2, no added sounds or murmurs. CHEST: Diminished air entry bilaterally. ABDOMEN: Soft, nontender. No guarding or rebound. EXTREMITIES: No cyanosis, clubbing. NEUROLOGIC: Generalized weakness. LABORATORY DATA: White count 12.9, hemoglobin 8.9, platelets of 461. BUN 12, creatinine 0.36. DIAGNOSTIC DATA: CT chest shows esophageal stent in place, possible tumor or foreign body in the es ophagus, large pleural effusion with compressive atelectasis. She is now status post thoracentesis. IMPRESSION AND PLAN: 1. Esophageal tumor with evidence of metastatic spread. 2. Possible primary lung cancer. 3. Recent thoracentesis with pleural fluid studies that did not include cytology. The patient now will require bronchodilators, broadening of antibiotics for likely postobstructive pneumonia. A tri al of Lasix and CT-guided biopsy of lung mass. Overall prognosis is very poor. A discussion about code status should be had. Palliative care evalua tion would be appropriate also. Dictated By: JOSSY GRAHAM MD SV/HOWIE Conf#: [id number] DID#: [id number]
[2016-06-24] MEDS: FUROSEMIDE 40 MG INJ IV SCH (14:07)
[2016-06-24] MEDS ORDERED: HYDROmorphONE 1 MG/ML SYG IV STA (14:12)
--- NOTE | 2016-06-24 14:14 | PN ---
Date/Time of Note Date/Time of Note DATE: 06/24/16 TIME: 14:13 Assessment/Plan VTE Prophylaxis VTE Prophylaxis Intervention: other Lines/Catheters IV C[facility]ter Type (from [facility] port a cath Urinary Cath still in place: No Assessment/Plan Chief Complaint/Hosp Course IMPRESSION: 1. Lung infiltrate./pleural effusion s/p thoracentesis 2. The patient has res insufficiency. 3. History of stent placement. 4. History of dyspepsia. 5. History of peptic ulcer disease. 6. History of anemia. 7. History of blood transfusion. 8. History of chemotherapy. 9. History of Port-A-Cath placement. 10. History of multiple episodes of possible aspiration pneumonia. 11 lung mass PLAN ANTIBIOTIC,PER ONCOLOGY ck pleural report lung biopsy Problems: Subjective 24 Hr Interval Summary Respiratory: shortness of breath (+) Gastrointestinal: no complaints Genitourinary: no complaints Exam/Review of Systems Vital Signs Vitals Vital Signs Date Time Temp Pulse Resp B/P Pulse Ox O2 Delivery O2 Flow Rate FiO2 06/24/16 08:26 97 2.0 06/24/16 08:18 111 24 Nasal Cannula 06/24/16 08:00 100.5 153/87 06/24/16 05:04 21 Intake and Output 06/23/16 06/23/16 06/24/16 15:00 23:00 07:00 Intake Total 680 ml 420 ml Balance 680 ml 420 ml Exam Neck: supple Respiratory: diminished breath sounds Cardiovascular: regular rate and rhythm Gastrointestinal: soft Extremities: No edema Results Result Diagram: 06/24/16 0432 06/23/16 0455 Results 24 hrs Laboratory Tests Test 06/24/16 04:32 06/24/16 06:44 Basophils # 0.0 Basophils % 0.0 Blood Morphology Comment Eosinophils # 0.0 Eosinophils % 0.1 Hematocrit 28.1 L Hemoglobin 8.9 L Lymphocytes # 0.3 L Lymphocytes % 2.7 L Mean Corpuscular Hemoglobin 26.0 L Mean Corpuscular Hemoglobin Concent 31.6 L Mean Corpuscular Volume 82.3 Mean Platelet Volume 6.2 L Monocytes # 0.4 Monocytes % 3.1 Neutrophils # 12.1 H Neutrophils % 94.1 H Nucleated Red Blood Cells # 0.0 Nucleated Red Blood Cells % 0.0 Platelet Count 561 H Red Blood Count 3.42 L Red Cell Distribution Width 17.4 H White Blood Count 12.9 H Arterial Blood HCO3 26.3 H Arterial Blood Base Excess 2.1 Arterial Blood Oxygen Saturation 95.4 Rosendo Test ACCEPTAB Arterial Blood Gas Puncture Site Right Radial Arterial Blood Carboxyhemoglobin 0.4 Arterial Blood Date Drawn 06/24/2016 7:35:53 AM Arterial Blood Methemoglobin 0.2 Arterial Blood pCO2 (Temp correct) 39.1 Arterial Blood pH (Temp corrected) 7.445 Arterial Blood pO2 (Temp corrected) 78.0 L Blood Gas A-a O2 Differential 46.6 H Blood Gas Modality NASAL CANNULA Blood Gas Notified Time 06/24/2016 7:55:43 AM Blood Gas Notified Whom CW Blood Gas Specimen Source Blood arterial Blood Gas Temperature 37.0 FiO2 24.0 Oxyhemoglobin Percent 94.8 Total Hemoglobin 8.2 L Medications Medications Current Medications Azithromycin (Zithromax 500mg/ NS (Pmx)) 250 ml @ 250 mls/hr Q24H IVPB Last administered on 06/23/16 21:26; Admin Dose 250 MLS/HR; Start 06/19/16 at 22:00 Ondansetron HCl (Zofran Inj) 4 mg Q4H PRN IV NAUSEA AND/OR VOMITING Last administered on 06/20/16at 17:20; Admin Dose 4 MG; Start 06/19/16 at 06:30 Pantoprazole (Protonix Iv) 40 mg DAILY@06 IV Last administered on 06/24/16 06: 21; Admin Dose 40 MG; Start 06/20/16 at 06:00 Acetaminophen (Tylenol Tab) 650 mg Q6H PRN PO PAIN AND OR ELEVATED TEMP; Start 06/19/16 at 06:30 Acetaminophen/ Hydrocodone Bitart ([place] (5/325)) 1 tab Q4H PRN PO FOR MODERATE PAIN Last administered on 06/24/16 10:39; Admin Dose 1 TAB; Start at 06:30 Hydromorphone HCl (Dilaudid) 1 mg Q4H PRN IV FOR SEVERE PAIN Last administered on 06/24/16 12:21; Admin Dose 1 MG; Start 06/19/16 at 06:30 Zolpidem Tartrate (Ambien) 5 mg HS PRN PO INSOMNIA Last administered on 21:26; Admin Dose 5 MG; Start 06/19/16 at 06:30 Hydrocodone Bit/ Homatropine Methylb 5 ml 5 ml Q6 PRN PO COUGH Last administered on 06/24/16t 10:39; Admin Dose 5 ML; Start 06/19/16 at 22:30 Piperacillin Sod/ Tazobactam Sod (Zosyn 3.375gm/ 100 ml (Pmx)) 100 ml @ 200 mls /hr Q6 IVPB ; Start 06/24/16 at 13:30 Furosemide (Lasix) 40 mg DAILY IV ; Start 06/24/16 at 13:30 [place] LOZANO MD Jun 24, 2016 14:14
[2016-06-24 20:00] VITALS: BP 102/74; PULSE 114; RESP 18
[2016-06-24 20:20] VITALS: BP 102/74; RESP 18
[2016-06-24] MEDS: ZOLPIDEM 5 MG TAB PO PRN (21:39)
[2016-06-24] MEDS: AZITHROMYCIN 500MG/NS (PMX) 250 ML IVPB SCH (21:39)
[2016-06-25] MEDS: ACETYLCYSTEINE 20% 4 ML VIAL NEB SCH ×4 (02:00→19:54)
[2016-06-25] MEDS: HYDROmorphONE 1 MG/ML SYG IV PRN ×7 (02:13→23:08)
[2016-06-25] MEDS: PIPER-TAZO 3.375 GM IV (PMX) 100 ML IVPB SCH ×4 (05:14→23:43)
[2016-06-25] MEDS: PANTOPRAZOLE 40 MG INJ IV SCH (05:14)
[2016-06-25 05:18] LABS: BASOPHILS % 0.2 % (0.0-2.0); EOSINOPHILS % 0.2 % (0.0-7.0); HEMATOCRIT 27.2 % (37.0-47.0); HEMOGLOBIN 8.8 g/dl (12.0-16.0); LYMPHOCYTES # 0.5 10^3/ul (0.8-2.9); LYMPHOCYTES % 4.2 % (15.0-51.0); MEAN CORPUSCULAR HEMOGLOBIN 26.3 pg (29.0-33.0); MEAN CORPUSCULAR HGB CONC 32.3 g/dl (32.0-37.0); MEAN CORPUSCULAR VOLUME 81.5 fl (82.0-101.0); MEAN PLATELET VOLUME 6.1 fl (7.4-10.4); MONOCYTE # 0.4 10^3/ul (0.3-0.9); MONOCYTES % 3.3 % (0.0-11.0); NEUTROPHIL # 10.9 10^3/ul (1.6-7.5); NEUTROPHILS % 92.1 % (39.0-77.0); PLATELET COUNT 636 10^3/UL (140-440); RED BLOOD COUNT 3.34 10^6/ul (4.20-5.40); RED CELL DISTRIBUTION WIDTH 17.1 % (11.5-14.5); UNCORRECTED WBC 11.9 10^3/ul (4.8-10.8); WHITE BLOOD COUNT 11.9 10^3/ul (4.8-10.8)
[2016-06-25] MEDS: ALBUTEROL/IPRATROPIUM (NEB) 3 ML AMP HHN PRN ×4 (05:20→19:54)
[2016-06-25 05:27] LABS: CONDITION 1; LH ANALYZER COMMENTS 1
[2016-06-25 07:22] VITALS: BP 103/43; RESP 24
[2016-06-25] MEDS: FUROSEMIDE 40 MG INJ IV SCH (09:52)
[2016-06-25 09:57] VITALS: BP 136/76; PULSE 119
[2016-06-25] MEDS: HYDROCODONE/HOMATROPINE 5ML CUP PO PRN ×2 (11:15→18:54)
--- NOTE | 2016-06-25 11:40 | CONS ---
Date/Time of Note Date/Time of Note DATE: 06/25/16 TIME: 11:37 Consult Date/Type/Reason Admit Date/Time Jun 19, 2016 at 03:07 Initial Consult Date 06/20/16 Type of Consultation: Pulm Subjective Comfortable. Still with some SOB. Objective Vital Signs Date Time Temp Pulse Resp B/P Pulse Ox O2 Delivery O2 Flow Rate FiO2 06/25/16 09:57 119 136/76 06/25/16 08:12 2.0 06/25/16 08:11 22 Nasal Cannula 06/25/16 07:22 99.1 94 06/24/16 05:04 21 Intake and Output 06/24/16 06/24/16 06/25/16 15:00 23:00 07:00 Intake Total 810 ml 580 ml Balance 810 ml 580 ml PHYSICAL EXAMINATION: GENERAL: Thin lady, comfortable at rest, no acute distress. Portable rales. VITAL SIGNS: As above NECK: Supple. No JVD or lymphadenopathy. CARDIAC: S1, S2, no added sounds or murmurs. CHEST: Diminished air entry bilaterally. ABDOMEN: Soft, nontender. No guarding or rebound. EXTREMITIES: No cyanosis, clubbing. NEUROLOGIC: Generalized weakness. Results/Medications Result Diagram: 06/25/16 0453 06/23/16 0455 Results 24 hrs Laboratory Tests Test 06/25/16 04:53 Basophils # 0.0 Basophils % 0.2 Blood Morphology Comment Eosinophils # 0.0 Eosinophils % 0.2 Hematocrit 27.2 L Hemoglobin 8.8 L Lymphocytes # 0.5 L Lymphocytes % 4.2 L Mean Corpuscular Hemoglobin 26.3 L Mean Corpuscular Hemoglobin Concent 32.3 Mean Corpuscular Volume 81.5 L Mean Platelet Volume 6.1 L Monocytes # 0.4 Monocytes % 3.3 Neutrophils # 10.9 H Neutrophils % 92.1 H Nucleated Red Blood Cells # 0.0 Nucleated Red Blood Cells % 0.0 Platelet Count 636 H Red Blood Count 3.34 L Red Cell Distribution Width 17.1 H White Blood Count 11.9 H Medications Current Medications Azithromycin (Zithromax 500mg/ NS (Pmx)) 250 ml @ 250 mls/hr Q24H IVPB Last administered on 06/24/16t 21:39; Admin Dose 250 MLS/HR; Start 06/19/16 at 22:00 Ondansetron HCl (Zofran Inj) 4 mg Q4H PRN IV NAUSEA AND/OR VOMITING Last administered on 06/20/16at 17:20; Admin Dose 4 MG; Start 06/19/16 at 06:30 Pantoprazole (Protonix Iv) 40 mg DAILY@06 IV Last administered on 06/25/16 05: 14; Admin Dose 40 MG; Start 06/20/16 at 06:00 Acetaminophen (Tylenol Tab) 650 mg Q6H PRN PO PAIN AND OR ELEVATED TEMP; Start 06/19/16 at 06:30 Acetaminophen/ Hydrocodone Bitart ([place] (5/325)) 1 tab Q4H PRN PO FOR MODERATE PAIN Last administered on 06/24/16 10:39; Admin Dose 1 TAB; Start at 06:30 Zolpidem Tartrate (Ambien) 5 mg HS PRN PO INSOMNIA Last administered on 21:39; Admin Dose 5 MG; Start 06/19/16 at 06:30 Hydrocodone Bit/ Homatropine Methylb 5 ml 5 ml Q6 PRN PO COUGH Last administered on 06/25/16 11:15; Admin Dose 5 ML; Start 06/19/16 at 22:30 Piperacillin Sod/ Tazobactam Sod (Zosyn 3.375gm/ 100 ml (Pmx)) 100 ml @ 200 mls /hr Q6 IVPB Last administered on 06/25/16 05:14; Admin Dose 200 MLS/HR; Start 06/24/16 at 13:30 Furosemide (Lasix) 40 mg DAILY IV Last administered on 06/25/16 09:52; Admin Dose 40 MG; Start 06/24/16 at 13:30 Hydromorphone HCl (Dilaudid) 1 mg Q3H PRN IV FOR SEVERE PAIN Last administered on 06/25/16 09:52; Admin Dose 1 MG; Start 06/24/16 at 19:23 Assessment/Plan Chief Complaint/Hosp Course IMPRESSION AND PLAN: 1. Esophageal tumor with evidence of metastatic spread. 2. Possible primary lung cancer. 3. Recent thoracentesis with pleural fluid studies, cytology pending. Plan. 1. Pulm toilet. BDs, lasix 2. Pending CT guided biopsy 3. Aspiration precautions. Problems: JOSSY GRAHAM MD, [facility] Jun 25, 2016 11:40
--- NOTE | 2016-06-25 15:33 | CONS ---
Date/Time of Note Date/Time of Note DATE: 06/25/16 TIME: 15:24 Assessment/Plan Assessment/Plan Chief Complaint/Hosp Course The patient is a 60 year old woman with locally advanced esophageal cancer with history of radiation pneumonitis, most recently on xeloda 1500 mg PO BID, now readmitted for hypoxemia and pain. CT scan revealed bilateral enlarging hilar masses. # Bilateral Hilar masses, concerning for malignancy - These were going to be biopsied but in speaking with radiology there is significant risk associated with the biopsy given her history of radiation. We will there fore first follow up on the cytology from the pleural fluid. If positive and we know patient has progressive disease, we will ikely be referring the patient for palliation of her symptoms and hospice care. If negative we will need to reconsider bx to see if the hilar masses are secondary to pneumonia #intractable pain -palliative care / pain management has been consulted to assist with this # Esophageal cancer - Ok to hold xeloda for now while being treated for pneumonia, patient was not taking at home for the past 4 days due to lack of appetite and inability to eat. # Dysphagia - Dr. Barron to re-evaluate the stent and its patency to see if there are any palliative measures that can help alleviate patients dysphagia. Approximately 40 min were spent at patient's bedside and in coordination of her care Problems: (1) Esophageal cancer Status: Chronic (2) Dysphagia Status: Acute (3) SOB (shortness of breath) Status: Acute Consultation Date/Type/Reason Admit Date/Time Jun 19, 2016 at 03:07 Initial Consult Date 06/20/16 Type of Consultation: Oncology Reason for Consultation esophageal cancer Referring Provider: OK LOZANO 24 HR Interval Summary Free Text/Dictation pt remains extremely short of breath and barely able to tolerate fluids. still with tremendous pain, very frustrated Exam/Review of Systems Vital Signs Vitals Vital Signs Date Time Temp Pulse Resp B/P Pulse Ox O2 Delivery O2 Flow Rate FiO2 06/25/16 15:09 2.0 06/25/16 15:08 108 24 100 06/25/16 14:55 Nasal Cannula 06/25/16 09:57 136/76 06/25/16 07:22 99.1 06/24/16 05:04 21 Intake and Output 06/24/16 06/24/16 06/25/16 15:00 23:00 07:00 Intake Total 810 ml 580 ml Balance 810 ml 580 ml Exam Constitutional: alert, distress, frail, oriented, other (cachetic) Psych: anxiety, depression Head: normocephalic Eyes: nl conjunctiva ENMT: nl external ears & nose Neck: supple Respiratory: crackles/rales, diminished breath sounds Cardiovascular: other (tachycardic) Gastrointestinal: tender Musculoskeletal: nl extremities to inspection, nl gait and stance Extremities: normal pulses Results Result Diagram: 06/25/16 0453 06/23/16 0455 Results 24 hrs Laboratory Tests Test 06/25/16 04:53 Basophils # 0.0 Basophils % 0.2 Blood Morphology Comment Eosinophils # 0.0 Eosinophils % 0.2 Hematocrit 27.2 L Hemoglobin 8.8 L Lymphocytes # 0.5 L Lymphocytes % 4.2 L Mean Corpuscular Hemoglobin 26.3 L Mean Corpuscular Hemoglobin Concent 32.3 Mean Corpuscular Volume 81.5 L Mean Platelet Volume 6.1 L Monocytes # 0.4 Monocytes % 3.3 Neutrophils # 10.9 H Neutrophils % 92.1 H Nucleated Red Blood Cells # 0.0 Nucleated Red Blood Cells % 0.0 Platelet Count 636 H Red Blood Count 3.34 L Red Cell Distribution Width 17.1 H White Blood Count 11.9 H Medications Medications Current Medications Azithromycin (Zithromax 500mg/ NS (Pmx)) 250 ml @ 250 mls/hr Q24H IVPB Last administered on 06/24/16 21:39; Admin Dose 250 MLS/HR; Start 06/19/16 at 22:00 Ondansetron HCl (Zofran Inj) 4 mg Q4H PRN IV NAUSEA AND/OR VOMITING Last administered on 06/20/16at 17:20; Admin Dose 4 MG; Start 06/19/16 at 06:30 Pantoprazole (Protonix Iv) 40 mg DAILY@06 IV Last administered on 06/25/16 05: 14; Admin Dose 40 MG; Start 06/20/16 at 06:00 Acetaminophen (Tylenol Tab) 650 mg Q6H PRN PO PAIN AND OR ELEVATED TEMP; Start 06/19/16 at 06:30 Acetaminophen/ Hydrocodone Bitart ([place] (5/325)) 1 tab Q4H PRN PO FOR MODERATE PAIN Last administered on 06/24/16 10:39; Admin Dose 1 TAB; Start at 06:30 Zolpidem Tartrate (Ambien) 5 mg HS PRN PO INSOMNIA Last administered on 21:39; Admin Dose 5 MG; Start 06/19/16 at 06:30 Hydrocodone Bit/ Homatropine Methylb 5 ml 5 ml Q6 PRN PO COUGH Last administered on 06/25/16 11:15; Admin Dose 5 ML; Start 06/19/16 at 22:30 Piperacillin Sod/ Tazobactam Sod (Zosyn 3.375gm/ 100 ml (Pmx)) 100 ml @ 200 mls /hr Q6 IVPB Last administered on 06/25/16 12:33; Admin Dose 200 MLS/HR; Start 06/24/16 at 13:30 Furosemide (Lasix) 40 mg DAILY IV Last administered on 06/25/16 09:52; Admin Dose 40 MG; Start 06/24/16 at 13:30 Hydromorphone HCl (Dilaudid) 1 mg Q3H PRN IV FOR SEVERE PAIN Last administered on 06/25/16 12:48; Admin Dose 1 MG; Start 06/24/16 at 19:23 NISSA MCNALLY M.D. Jun 25, 2016 15:33
--- NOTE | 2016-06-25 16:34 | PN ---
Date/Time of Note Date/Time of Note DATE: 06/25/16 TIME: 16:33 Assessment/Plan VTE Prophylaxis VTE Prophylaxis Intervention: other Lines/Catheters IV Catheter Type (from [facility]): PORT A CATH Urinary Cath still in place: No Assessment/Plan Chief Complaint/Hosp Course IMPRESSION: 1. Lung infiltrate./pleural effusion s/p thoracentesis/lung mass 2. The patient has res insufficiency. 3. History of stent placement. 4. History of dyspepsia. 5. History of peptic ulcer disease. 6. History of anemia. 7. History of blood transfusion. 8. History of chemotherapy. 9. History of Port-A-Cath placement. 10. History of multiple episodes of possible aspiration pneumonia. 11 lung mass PLAN ANTIBIOTIC,PER ONCOLOGY ck pleural fluid report lung biopsy hold by dr miller Problems: Subjective 24 Hr Interval Summary Respiratory: no complaints (+), shortness of breath Cardiovascular: no complaints Exam/Review of Systems Vital Signs Vitals Vital Signs Date Time Temp Pulse Resp B/P Pulse Ox O2 Delivery O2 Flow Rate FiO2 06/25/16 15:09 2.0 06/25/16 15:08 108 24 100 06/25/16 14:55 Nasal Cannula 06/25/16 09:57 136/76 06/25/16 07:22 99.1 06/24/16 05:04 21 Intake and Output 06/24/16 06/24/16 06/25/16 15:00 23:00 07:00 Intake Total 810 ml 580 ml Balance 810 ml 580 ml Exam Neck: supple Respiratory: diminished breath sounds Cardiovascular: regular rate and rhythm Gastrointestinal: soft Musculoskeletal: nl extremities to inspection Results Result Diagram: 06/25/16 0453 06/23/16 0455 Results 24 hrs Laboratory Tests Test 06/25/16 04:53 Basophils # 0.0 Basophils % 0.2 Blood Morphology Comment Eosinophils # 0.0 Eosinophils % 0.2 Hematocrit 27.2 L Hemoglobin 8.8 L Lymphocytes # 0.5 L Lymphocytes % 4.2 L Mean Corpuscular Hemoglobin 26.3 L Mean Corpuscular Hemoglobin Concent 32.3 Mean Corpuscular Volume 81.5 L Mean Platelet Volume 6.1 L Monocytes # 0.4 Monocytes % 3.3 Neutrophils # 10.9 H Neutrophils % 92.1 H Nucleated Red Blood Cells # 0.0 Nucleated Red Blood Cells % 0.0 Platelet Count 636 H Red Blood Count 3.34 L Red Cell Distribution Width 17.1 H White Blood Count 11.9 H Medications Medications Current Medications Azithromycin (Zithromax 500mg/ NS (Pmx)) 250 ml @ 250 mls/hr Q24H IVPB Last administered on 06/24/16 21:39; Admin Dose 250 MLS/HR; Start 06/19/16 at 22:00 Ondansetron HCl (Zofran Inj) 4 mg Q4H PRN IV NAUSEA AND/OR VOMITING Last administered on 06/20/16at 17:20; Admin Dose 4 MG; Start 06/19/16 at 06:30 Pantoprazole (Protonix Iv) 40 mg DAILY@06 IV Last administered on 06/25/16 05: 14; Admin Dose 40 MG; Start 06/20/16 at 06:00 Acetaminophen (Tylenol Tab) 650 mg Q6H PRN PO PAIN AND OR ELEVATED TEMP; Start 06/19/16 at 06:30 Acetaminophen/ Hydrocodone Bitart ([place] (5/325)) 1 tab Q4H PRN PO FOR MODERATE PAIN Last administered on 06/24/16 10:39; Admin Dose 1 TAB; Start at 06:30 Zolpidem Tartrate (Ambien) 5 mg HS PRN PO INSOMNIA Last administered on 21:39; Admin Dose 5 MG; Start 06/19/16 at 06:30 Hydrocodone Bit/ Homatropine Methylb 5 ml 5 ml Q6 PRN PO COUGH Last administered on 06/25/16 11:15; Admin Dose 5 ML; Start 06/19/16 at 22:30 Piperacillin Sod/ Tazobactam Sod (Zosyn 3.375gm/ 100 ml (Pmx)) 100 ml @ 200 mls /hr Q6 IVPB Last administered on 06/25/16 12:33; Admin Dose 200 MLS/HR; Start 06/24/16 at 13:30 Furosemide (Lasix) 40 mg DAILY IV Last administered on 06/25/16 09:52; Admin Dose 40 MG; Start 06/24/16 at 13:30 Hydromorphone HCl (Dilaudid) 1 mg Q3H PRN IV FOR SEVERE PAIN Last administered on 06/25/16 12:48; Admin Dose 1 MG; Start 06/24/16 at 19:23 OK LOZANO MD Jun 25, 2016 16:34
[2016-06-25 21:00] VITALS: BP 127/79; RESP 22
[2016-06-25] MEDS: AZITHROMYCIN 500MG/NS (PMX) 250 ML IVPB SCH (22:31)
[2016-06-26] MEDS: ZOLPIDEM 5 MG TAB PO PRN (00:19)
[2016-06-26] MEDS: ALBUTEROL/IPRATROPIUM (NEB) 3 ML AMP HHN PRN ×5 (00:22→19:26)
[2016-06-26] MEDS: HYDROmorphONE 1 MG/ML SYG IV PRN ×4 (01:53→11:01)
[2016-06-26] MEDS: ACETYLCYSTEINE 20% 4 ML VIAL NEB SCH ×4 (02:00→19:27)
[2016-06-26] MEDS: PANTOPRAZOLE 40 MG INJ IV SCH (05:44)
[2016-06-26] MEDS: PIPER-TAZO 3.375 GM IV (PMX) 100 ML IVPB SCH ×4 (05:45→23:35)
[2016-06-26 07:31] VITALS: BP 87/67; RESP 24
[2016-06-26] MEDS: FUROSEMIDE 40 MG INJ IV SCH (08:13)
[2016-06-26 08:14] VITALS: BP 101/67; PULSE 117
--- NOTE | 2016-06-26 13:02 | CONS ---
Date/Time of Note Date/Time of Note DATE: 06/26/16 TIME: 12:58 Assessment/Plan Assessment/Plan Chief Complaint/Hosp Course The patient is a 60 year old woman with locally advanced esophageal cancer with history of radiation pneumonitis, most recently on xeloda 1500 mg PO BID, now readmitted for hypoxemia and pain. CT scan revealed bilateral enlarging hilar masses. # Bilateral Hilar masses, concerning for malignancy - These were going to be biopsied but in speaking with radiology there is significant risk associated with the biopsy given her history of radiation. We will therefore first follow up on the cytology from the pleural fluid. If positive and we know patient has progressive disease, we will likely be referring the patient for palliation of her symptoms and hospice care. Pt has clearly stated that she does not want any more chemotherapy and just wants her sx to be relieved. #intractable pain -palliative care / pain management has been consulted to assist with this # Esophageal cancer - Ok to hold xeloda for now while being treated for pneumonia, patient was not taking at home for the past 4 days due to lack of appetite and inability to eat. # Dysphagia - Dr. Barron to re-evaluate the stent and its patency to see if there are any palliative measures that can help alleviate patients dysphagia. Approximately 40 min were spent at patient's bedside and in coordination of her care Problems: Consultation Date/Type/Reason Admit Date/Time Jun 19, 2016 at 03:07 Initial Consult Date 06/20/16 Type of Consultation: Oncology Reason for Consultation esophageal cancer Referring Provider: OK LOZANO MD 24 HR Interval Summary Free Text/Dictation pt continues to c/o pain and SOB. states she is suffering from pain and does not want to suffer any more. She states she cannot handle more chemotherapy. Exam/Review of Systems Vital Signs Vitals Vital Signs Date Time Temp Pulse Resp B/P Pulse Ox O2 Delivery O2 Flow Rate FiO2 06/26/16 08:14 117 101/67 06/26/16 08:11 95 2.0 28 06/26/16 08:11 20 Nasal Cannula 06/26/16 07:31 98.4 Intake and Output 06/25/16 06/25/16 06/26/16 15:00 23:00 07:00 Intake Total 100 ml 1400 ml 350 ml Balance 100 ml 1400 ml 350 ml Exam Constitutional: alert, distress, frail, oriented Psych: anxiety, depression Head: normocephalic Eyes: nl conjunctiva ENMT: nl external ears & nose Neck: non-tender, supple Respiratory: crackles/rales, diminished breath sounds, labored breathing Cardiovascular: other (tachycardic) Gastrointestinal: soft Musculoskeletal: nl extremities to inspection, nl gait and stance Extremities: normal pulses Results Result Diagram: 06/25/16 0453 06/23/16 0455 Medications Medications Current Medications Azithromycin (Zithromax 500mg/ NS (Pmx)) 250 ml @ 250 mls/hr Q24H IVPB Last administered on 06/25/16 22:31; Admin Dose 250 MLS/HR; Start 06/19/16 at 22:00 Ondansetron HCl (Zofran Inj) 4 mg Q4H PRN IV NAUSEA AND/OR VOMITING Last administered on 06/20/16at 17:20; Admin Dose 4 MG; Start 06/19/16 at 06:30 Pantoprazole (Protonix Iv) 40 mg DAILY@06 IV Last administered on 06/26/16 05: 44; Admin Dose 40 MG; Start 06/20/16 at 06:00 Acetaminophen (Tylenol Tab) 650 mg Q6H PRN PO PAIN AND OR ELEVATED TEMP; Start 06/19/16 at 06:30 Acetaminophen/ Hydrocodone Bitart ([facility] (5/325)) 1 tab Q4H PRN PO FOR MODERATE PAIN Last administered on 06/24/16 10:39; Admin Dose 1 TAB; Start at 06:30 Zolpidem Tartrate (Ambien) 5 mg HS PRN PO INSOMNIA Last administered on 00:19; Admin Dose 5 MG; Start 06/19/16 at 06:30 Hydrocodone Bit/ Homatropine Methylb 5 ml 5 ml Q6 PRN PO COUGH Last administered on 06/25/16 18:54; Admin Dose 5 ML; Start 06/19/16 at 22:30 Piperacillin Sod/ Tazobactam Sod (Zosyn 3.375gm/ 100 ml (Pmx)) 100 ml @ 200 mls /hr Q6 IVPB Last administered on 06/26/16 11:01; Admin Dose 200 MLS/HR; Start 06/24/16 at 13:30 Furosemide (Lasix) 40 mg DAILY IV Last administered on 06/26/16 08:13; Admin Dose 40 MG; Start 06/24/16 at 13:30 Hydromorphone HCl (Dilaudid) 1 mg Q3H PRN IV FOR SEVERE PAIN Last administered on 06/26/16 11:01; Admin Dose 1 MG; Start 06/24/16 at 19:23 NISSA MCNALLY M.D. Jun 26, 2016 13:01
[2016-06-26] MEDS ORDERED: DEXAMETHASONE 4 MG/ML 5 ML INJ IV SCH ×2 (14:00→18:00)
[2016-06-26] MEDS: HYDROmorphONE 0.2 MG/ML PCA IV SCH (15:03)
--- NOTE | 2016-06-26 16:03 | CONS ---
Date/Time of Note Date/Time of Note DATE: 06/26/16 TIME: 16:01 Consult Date/Type/Reason Admit Date/Time Jun 19, 2016 at 03:07 Initial Consult Date 06/20/16 Type of Consultation: pulmonary Ordering Provider: OK LOZANO MD Subjective Patient remains with shortness of breath Still has difficulty taking deep breaths and with exertion Cough with inability to clear secretions Objective Vital Signs Date Time Temp Pulse Resp B/P Pulse Ox O2 Delivery O2 Flow Rate FiO2 06/26/16 15:41 105 24 96 Nasal Cannula 2.0 06/26/16 15:41 28 06/26/16 08:14 101/67 06/26/16 07:31 98.4 Intake and Output 06/25/16 06/25/16 06/26/16 15:00 23:00 07:00 Intake Total 100 ml 1400 ml 350 ml Balance 100 ml 1400 ml 350 ml Results/Medications Result Diagram: 06/25/16 0453 06/23/16 0455 Medications Current Medications Azithromycin (Zithromax 500mg/ NS (Pmx)) 250 ml @ 250 mls/hr Q24H IVPB Last administered on 06/25/16 22:31; Admin Dose 250 MLS/HR; Start 06/19/16 at 22:00 Ondansetron HCl (Zofran Inj) 4 mg Q4H PRN IV NAUSEA AND/OR VOMITING Last administered on 06/20/16at 17:20; Admin Dose 4 MG; Start 06/19/16 at 06:30 Pantoprazole (Protonix Iv) 40 mg DAILY@06 IV Last administered on 06/26/16 05: 44; Admin Dose 40 MG; Start 06/20/16 at 06:00 Acetaminophen 650 mg 650 mg Q6H PRN PO PAIN AND OR ELEVATED TEMP; Start at 06:30 Piperacillin Sod/ Tazobactam Sod (Zosyn 3.375gm/ 100 ml (Pmx)) 100 ml @ 200 mls /hr Q6 IVPB Last administered on 06/26/16 11:01; Admin Dose 200 MLS/HR; Start 06/24/16 at 13:30 Furosemide (Lasix) 40 mg DAILY IV Last administered on 06/26/16 08:13; Admin Dose 40 MG; Start 06/24/16 at 13:30 Hydromorphone HCl (Dilaudid CLAIMS ASSISTANT) 0.1 MG/HR CONTINUOUS R... Q4PCA IV Last administered on 06/26/16t 15:03; Admin Dose 6 MG; Start 06/26/16 at 14:00 Trazodone HCl (Desyrel) 25 mg HS PRN PO INSOMNIA; Start 06/26/16 at 14:00 Dexamethasone (Decadron) 6 mg Q6 IV ; Start 06/26/16 at 18:00 Assessment/Plan Chief Complaint/Hosp Course IMPRESSION AND PLAN: 1. Esophageal tumor with evidence of metastatic spread. 2. Possible primary lung cancer. However unlikely 3. Recent thoracentesis with pleural fluid studies, cytology negative for malignancy Plan. 1. Pulm toilet. BDs, lasix 2. Aspiration precautions 3. Discussed with palliative care overall prognosis is very poor Patient had a long discussion with myself and palliative care expressed her wishes to focus on comfort measures including hospice, given the extent of her disease this is entirely appropriate. CODE STATUS should be changed and focus should be on comfort measures as per patient's wishes Problems: JOSSY GRAHAM MD, [facility] Jun 26, 2016 16:03
[2016-06-26] MEDS ORDERED: DEXAMETHASONE 10 MG/ML 1 ML INJ IV SCH (18:00)
[2016-06-26 19:51] VITALS: BP 103/62; RESP 22
[2016-06-26] MEDS ORDERED: GUAIFENESIN 20 MG/ML 5ML CUP PO PRN (21:00)
[2016-06-26] MEDS: AZITHROMYCIN 500MG/NS (PMX) 250 ML IVPB SCH (21:58)
[2016-06-26] MEDS: traZODone 50 MG TAB PO PRN (22:13)
--- NOTE | 2016-06-26 22:35 | CONS ---
DATE OF ADMISSION: 06/19/2016 DATE OF CONSULTATION: TYPE OF CONSULTATION: Gastroenterology. REFERRING PHYSICIAN: Josue Lozano MD HISTORY OF PRESENT ILLNESS: Winter Muse is a 60-year-old female with a history of esophageal canc er, status post stenting, chemotherapy, pneumonia is admitted to the hospital for shortness of breat h. The patient was found to have a mass in the lung and also pleural effusion. Thoracocentesis was done. Now she complains of dysphagia and has been losing weight steadily. PAST MEDICAL HISTORY: Esophageal cancer status post chemotherapy, history of pneumonia in the past. Chronic chest pain. Dysphagia. ALLERGIES: NONE. FAMILY HISTORY: Unchanged. SOCIAL HISTORY: Unchanged. REVIEW OF SYSTEMS: Cough and gargling sound in the throat and dysphagia. No fever. PHYSICAL EXAMINATION: GENERAL: Cachectic. Definitely lost weight. CARDIOVASCULAR: No murmur, gallop, or click. LUNGS: Clear. ABDOMEN: Benign. EXTREMITIES: No edema. CENTRAL NERVOUS SYSTEM: Grossly within normal limits. IMAGING: The patient had a CT chest, which shows bilateral hilar masses. Esophageal stent was in s atisfactory position. Stent appeared to have clogged because of tumor ingrowth or may be a bolus of food impaction. Also, this patient had a large pleural effusion. And old healed rib fracture. IMPRESSION: 1. Esophageal cancer, spreading into lungs. 2. Pleural effusion, status post thoracocentesis. 3. Cachexia. 4. Dysphagia, secondary to blockage of the stent. 5. Old healed rib fracture. 6. Chronic pain syndrome. PLAN: At this point, is to stabilize the pulmonary status. Once she is more stable, will proceed w ith EGD and disimpact if there is a food bolus and if there is a tumor ingrown, we can burn it with APC. Dictated By: TIERRA WYATT/NTS Conf#: [id number] DID#: [id number] CC: TIERRA LERMA MD; HECTOR WINSTON MD; JOSUE LOZANO MD;*EndCC*
[2016-06-26] MEDS: DEXAMETHASONE 4 MG/ML 1 ML INJ IV SCH (23:35)
[2016-06-27] VITALS (16 sets, daily range): BP systolic 72–136; BP diastolic 53–77; PULSE 85–180; RESP 16–22
[2016-06-27] MEDS: HYDROmorphONE 0.2 MG/ML PCA IV SCH ×2 (00:52→14:51)
[2016-06-27] MEDS: ALBUTEROL/IPRATROPIUM (NEB) 3 ML AMP HHN PRN ×3 (01:15→19:49)
[2016-06-27] MEDS: ACETYLCYSTEINE 20% 4 ML VIAL NEB SCH ×5 (01:15→19:48)
[2016-06-27] MEDS: PANTOPRAZOLE 40 MG INJ IV SCH (05:33)
[2016-06-27] MEDS: PIPER-TAZO 3.375 GM IV (PMX) 100 ML IVPB SCH ×4 (05:34→23:02)
[2016-06-27] MEDS: DEXAMETHASONE 4 MG/ML 1 ML INJ IV SCH ×4 (05:34→23:02)
[2016-06-27] MEDS ORDERED: DILTIAZEM 25 MG INJ IV ONE (08:00)
[2016-06-27] MEDS: FUROSEMIDE 40 MG INJ IV SCH (08:35)
[2016-06-27] MEDS ORDERED: DILTIAZEM-D5W 125MG/125ML DRIP 125 ML IV SCH (09:00)
--- NOTE | 2016-06-27 10:01 | CONS ---
DATE OF ADMISSION: 06/19/2016 DATE OF CONSULTATION: 06/27/2016 PALLIATIVE CARE PAIN MANAGEMENT CONSULTATION HISTORY OF PRESENT ILLNESS: This is a very pleasant 60-year-old female who has a history of metasta tic esophageal cancer who presents at this time with increasing shortness of breath and diagnosed wi th lung infiltrate and is admitted for stabilization of her respiratory status and control of her pa in. The patient's primary care oncologist is Dr. Davila who is undergoing treatment with Xeloda 1500 mg b.i.d. prior to hospitalization. She also has a history of radiation pneumonitis. CT scan done during this hospitalization showed worsening appearance of the lungs, possible bilateral hilar mass es, esophageal stent in place, and the stent may be occluded proximally due to foreign body or tumor growth. Clinical correlation advised. There is gas and fluid in dilated esophagus proximal to the stent, gas bubbles to the right of the esophagus may indicate necrotic tumor, central venous cathet er in satisfactory position, arteriosclerosis, large left pleural effusion and small left pleural ef fusion, acute superior endplate fracture L1 vertebral body with approximately 40% loss of height, th is may be due to the neoplasm at the site, and old healed left rib fractures. Because of the progre ssion of her underlying disease process, the patient is experiencing increasing pain. She describes it is continuous once again without peaks and troughs, knowing type of discomfort primarily located in bilateral upper quadrants and radiations into her lower back. Denies loss of sensation or loss of motor functions in bilateral lower extremities. There is no history of warning signs including i ncontinence of urine or stool, recent history of infection prior to this hospitalization within the last 1 month, or pelvic hypoesthesia. The patient was treated with fentanyl spray prior to this hos pitalization with backup [place], but her pain has accelerated since that time. Next issue is palliat adiel care, where the patient has expressed that she would like to speak about ongoing level of care a nd possible hospice services. MEDICATIONS: Please refer to reconciliation sheets. ALLERGIES: NO KNOWN DRUG ALLERGIES. MAJOR MEDICAL PROBLEMS IN THE PAST: Primarily pertinent for this consultation as per history of pre sent illness. SOCIAL HISTORY: Former smoker, nonalcohol drinker. FAMILY HISTORY: Noncontributory towards this hospitalization. REVIEW OF SYSTEMS: A 12-point review of systems is unremarkable except which is as per history of p resent illness. PHYSICAL EXAMINATION: VITAL SIGNS: Blood pressure 136/77, pulse 140, pulse ox 95%. HEENT: Normocephalic and atraumatic. Anicteric, acyanotic. RESPIRATORY: She is in mild to moderate respiratory distress. CHEST: Shows inspiratory and expiratory wheezing, rhonchi, and distant rales bilaterally. CORONARY: S1, S2, without S3, S4, murmur, gallop, rub. Normal rate, normal rhythm. ABDOMEN: Grossly benign. NEUROLOGIC: She is oriented x3. Cranial nerves II through XII are grossly intact. Motor and senso ry findings are grossly within normal limits. LABORATORY TESTS: White blood cell count 11.9, hemoglobin 8.8, hematocrit 27.2, MCV of 81.5, platel et count 636,000. Chemistries: Serum sodium 135, potassium 3.9, chloride 98, bicarbonate 27, BUN o f 12, creatinine 0.36. ASSESSMENT AND PLAN: Esophageal cancer with metastasis, possibly to L1 spine with severe pain as de scribed in the history of present illness. Since she is failing current treatment for her pain and since she will probably be hospitalized for an extended period of time, at this time, will switch he r to DRAGLINE OPERATOR Dilaudid. I have explained to her her pain will be better controlled and she will have con trol over administration of her pain control medication. She is in agreement with that, and she is cognitively intact enough to be able to use the DRAGLINE OPERATOR pump. The second issue is ongoing level of care . I have had an extensive conversation with her. She has made it very clear she does not want to l adiel with artificial life support, and with that, I will change her code status to do not resuscitate . Also, she is very clear that she does not think her family members can take care of her at home a nd that she is interested in hospice care. The concern is whether or not she would go home or to a detention unit. Unfortunately, I believe that going to a detention unit would be proble matic as her degree of pain and shortness of breath may not be adequately controlled in a skilled nu rsing facility, so at this point I will discuss with Dr. Davila will have additional conversations wi th the patient and follow her closely and adjust her pain medications as necessary. I will also con tact family members. Dictated By: CHELSEA VINES MD LP/HOWIE Conf#: [id number] DID#: [id number]
--- NOTE | 2016-06-27 11:24 | CONS ---
Date/Time of Note Date/Time of Note DATE: 06/27/16 TIME: 11:22 Assessment/Plan Assessment/Plan Additional Assessment/Plan IMPRESSION: 1. Esophageal cancer, spreading into lungs. 2. Pleural effusion, status post thoracocentesis. 3. Cachexia. 4. Dysphagia, secondary to blockage of the stent. 5. Old healed rib fracture. 6. Chronic pain syndrome Plan EGD with dislodgement of food If tumor ingrowth ,then APC for debulking Consultation Date/Type/Reason Admit Date/Time Jun 19, 2016 at 03:07 Initial Consult Date 06/20/16 Type of Consultation: pulmonary Referring Provider: OK LOZANO MD 24 HR Interval Summary Free Text/Dictation dysphagia Exam/Review of Systems Vital Signs Vitals Vital Signs Date Time Temp Pulse Resp B/P Pulse Ox O2 Delivery O2 Flow Rate FiO2 06/27/16 11:18 88 114/71 98 Nasal Cannula 3.0 06/27/16 09:00 28 06/27/16 08:09 97.9 06/27/16 07:25 28 Intake and Output 06/26/16 06/26/16 06/27/16 15:00 23:00 07:00 Intake Total 930 ml 300 ml Balance 930 ml 300 ml Exam Constitutional: alert, oriented, well developed Psych: nl mood/affect, no complaints Head: atraumatic, normocephalic Eyes: EOMI, PERRL, nl conjunctiva, nl lids, nl sclera ENMT: nl external ears & nose, nl lips & teeth, nl nasal mucosa & septum Neck: non-tender, supple Respiratory: clear to auscultation, normal air movement Cardiovascular: nl pulses, regular rate and rhythm Gastrointestinal: nl liver, spleen, non-tender, soft Musculoskeletal: nl extremities to inspection, nl gait and stance Extremities: normal pulses Neurological: DISASTER RECOVERY SPECIALIST II-XII intact, nl mental status, nl speech, nl strength Skin: nl turgor, No rash or lesions Lymph: nl lymph nodes Results Result Diagram: 06/25/16 0453 06/23/16 0455 Results 24 hrs Laboratory Tests Test 06/27/16 07:47 Bedside Glucose 134 Medications Medications Current Medications Azithromycin (Zithromax 500mg/ NS (Pmx)) 250 ml @ 250 mls/hr Q24H IVPB Last administered on 06/26/16t 21:58; Admin Dose 250 MLS/HR; Start 06/19/16 at 22:00 Ondansetron HCl (Zofran Inj) 4 mg Q4H PRN IV NAUSEA AND/OR VOMITING Last administered on 06/20/16at 17:20; Admin Dose 4 MG; Start 06/19/16 at 06:30 Pantoprazole (Protonix Iv) 40 mg DAILY@06 IV Last administered on 06/27/16 05: 33; Admin Dose 40 MG; Start 06/20/16 at 06:00 Acetaminophen 650 mg 650 mg Q6H PRN PO PAIN AND OR ELEVATED TEMP; Start at 06:30 Piperacillin Sod/ Tazobactam Sod (Zosyn 3.375gm/ 100 ml (Pmx)) 100 ml @ 200 mls /hr Q6 IVPB Last administered on 06/27/16 05:34; Admin Dose 200 MLS/HR; Start 06/24/16 at 13:30 Furosemide (Lasix) 40 mg DAILY IV Last administered on 06/26/16 08:13; Admin Dose 40 MG; Start 06/24/16 at 13:30 Hydromorphone HCl (Dilaudid THEATRE MANAGER) 0.1 MG/HR CONTINUOUS R... Q4PCA IV Last administered on 06/27/16 00:52; Admin Dose 6 MG; Start 06/26/16 at 14:00; Status Future Hold Trazodone HCl (Desyrel) 25 mg HS PRN PO INSOMNIA Last administered on 06/26/16 22:13; Admin Dose 25 MG; Start 06/26/16 at 14:00 Dexamethasone (Decadron) 6 mg Q6 IV Last administered on 06/27/16 05:34; Admin Dose 6 MG; Start 06/27/16 at 00:00 Guaifenesin 200 mg 200 mg Q4H PRN PO COUGH; Start 06/26/16 at 21:00 Diltiazem HCl (Cardizem-D5W 125 Mg/125 ml Drip) 125 ml @ 5 mls/hr TITRATE IV Last administered on 06/27/16 09:48; Admin Dose 10 MLS/HR; Start 06/27/16 at 09: 00 TIERRA LERMA MD Jun 27, 2016 11:24
--- NOTE | 2016-06-27 11:37 | CONS ---
Date/Time of Note Date/Time of Note DATE: 06/27/16 TIME: 11:30 Assessment/Plan Assessment/Plan Chief Complaint/Hosp Course The patient is a 60 year old woman with locally advanced esophageal cancer with history of radiation pneumonitis, most recently on xeloda 1500 mg PO BID, now readmitted for hypoxemia and pain. CT scan revealed bilateral enlarging hilar masses. # Bilateral Hilar masses, concerning for malignancy - These were going to be biopsied but in speaking with radiology there is significant risk associated with the biopsy given her history of radiation. Furthermore, even though pleural fluid cytology is negative it appears that the cancer has also spread to L1. Given her metastatic that is not responding to current therapy and the fact that patient is extremely debilitated, I agree with palliative care measures and hospice care. I appreciate Dr. Sánchez's involvement in her pain management and goals of care conversations. Patient has agreed to hospice care. Will defer to Dr. Sánchez on the best way to proceed with this given patient's acute symptoms of shortness and pain. #intractable pain -palliative care / pain management has been consulted to assist with this. was on a Dilaudid BRADDER which is now on hold for patient's afib # Esophageal cancer - Ok to hold xeloda for now while being treated for pneumonia, patient was not taking at home for the past 4 days due to lack of appetite and inability to eat. # Dysphagia - Dr. Barron to re-evaluate the stent and its patency. EGD The patient is a 60 year old woman with locally advanced esophageal cancer with history of radiation pneumonitis, most recently on xeloda 1500 mg PO BID, now readmitted for hypoxemia and pain. CT scan revealed bilateral enlarging hilar masses. # Afib -on Cardizem drip Approximate 40 min were spent at patient's bedside and in coordination of her care Problems: Additional Assessment/Plan Consultation Date/Type/Reason Admit Date/Time Jun 19, 2016 at 03:07 Initial Consult Date 06/20/16 Type of Consultation: hematology Reason for Consultation esophageal cancer Referring Provider: OK LOZANO MD 24 HR Interval Summary Free Text/Dictation pt went into afib today and is now on Cardizem drip. structural designer on hold Exam/Review of Systems Vital Signs Vitals Vital Signs Date Time Temp Pulse Resp B/P Pulse Ox O2 Delivery O2 Flow Rate FiO2 06/27/16 11:18 88 114/71 98 Nasal Cannula 3.0 06/27/16 09:00 28 06/27/16 08:09 97.9 06/27/16 07:25 28 Intake and Output 06/26/16 06/26/16 06/27/16 15:00 23:00 07:00 Intake Total 930 ml 300 ml Balance 930 ml 300 ml Results Result Diagram: 06/25/16 0453 06/23/16 0455 Results 24 hrs Laboratory Tests Test 06/27/16 07:47 Bedside Glucose 134 Medications Medications Current Medications Azithromycin (Zithromax 500mg/ NS (Pmx)) 250 ml @ 250 mls/hr Q24H IVPB Last administered on 06/26/16 21:58; Admin Dose 250 MLS/HR; Start 06/19/16 at 22:00 Ondansetron HCl (Zofran Inj) 4 mg Q4H PRN IV NAUSEA AND/OR VOMITING Last administered on 06/20/16at 17:20; Admin Dose 4 MG; Start 06/19/16 at 06:30 Pantoprazole (Protonix Iv) 40 mg DAILY@06 IV Last administered on 06/27/16 05: 33; Admin Dose 40 MG; Start 06/20/16 at 06:00 Acetaminophen 650 mg 650 mg Q6H PRN PO PAIN AND OR ELEVATED TEMP; Start at 06:30 Piperacillin Sod/ Tazobactam Sod (Zosyn 3.375gm/ 100 ml (Pmx)) 100 ml @ 200 mls /hr Q6 IVPB Last administered on 06/27/16 05:34; Admin Dose 200 MLS/HR; Start 06/24/16 at 13:30 Furosemide (Lasix) 40 mg DAILY IV Last administered on 06/26/16 08:13; Admin Dose 40 MG; Start 06/24/16 at 13:30 Hydromorphone HCl (Dilaudid BRADDER) 0.1 MG/HR CONTINUOUS R... Q4PCA IV Last administered on 06/27/16 00:52; Admin Dose 6 MG; Start 06/26/16 at 14:00; Status Future Hold Trazodone HCl (Desyrel) 25 mg HS PRN PO INSOMNIA Last administered on 06/26/16 22:13; Admin Dose 25 MG; Start 06/26/16 at 14:00 Dexamethasone (Decadron) 6 mg Q6 IV Last administered on 06/27/16 05:34; Admin Dose 6 MG; Start 06/27/16 at 00:00 Guaifenesin 200 mg 200 mg Q4H PRN PO COUGH; Start 06/26/16 at 21:00 Diltiazem HCl (Cardizem-D5W 125 Mg/125 ml Drip) 125 ml @ 5 mls/hr TITRATE IV Last administered on 06/27/16 09:48; Admin Dose 10 MLS/HR; Start 06/27/16 at 09: 00 NISSA MCNALLY M.D. Jun 27, 2016 11:37 Dose 40 MG; Start 06/24/16 at 13:30 Hydromorphone HCl (Dilaudid BRADDER) 0.1 MG/HR CONTINUOUS R... Q4PCA IV Last administered on 06/27/16 00:52; Admin Dose 6 MG; Start 06/26/16 at 14:00; Status Future Hold Trazodone HCl (Desyrel) 25 mg HS PRN PO INSOMNIA Last administered on 06/26/16 22:13; Admin Dose 25 MG; Start 06/26/16 at 14:00 Dexamethasone (Decadron) 6 mg Q6 IV Last administered on 06/27/16 05:34; Admin Dose 6 MG; Start 06/27/16 at 00:00 Guaifenesin 200 mg 200 mg Q4H PRN PO COUGH; Start 06/26/16 at 21:00 Diltiazem HCl (Cardizem-D5W 125 Mg/125 ml Drip) 125 ml @ 5 mls/hr TITRATE IV Last administered on 06/27/16 09:48; Admin Dose 10 MLS/HR; Start 06/27/16 at 09: 00 NISSA MCNALLY M.D. Jun 27, 2016 11:37
[2016-06-27] MEDS ORDERED: METOPROLOL 5 MG INJ IV PRN (13:00)
[2016-06-27] MEDS: AMIODARONE 200 MG TAB PO SCH ×2 (13:19→20:20)
[2016-06-27] MEDS: ASPIRIN (EC) 325 MG TAB PO SCH (13:19)
--- NOTE | 2016-06-27 13:42 | RADRPT ---
Vent Rate: 180 bpm RR Interval: 0 msec NM Interval: 0 msec QRS Duration: 80 msec QT Interval: 278 msec QTC Interval: 481 msec P-R-T [place]: 72 - 33 - 69 degrees Atrial flutter with variable AV block Nonspecific ST and T wave abnormality Abnormal ECG Electronically Signed By: Karthik Banegas [id number]
--- NOTE | 2016-06-27 13:49 | CONS ---
DATE OF ADMISSION: 06/19/2016 DATE OF CONSULTATION: 06/27/2016 REASON FOR CONSULTATION: Paroxysmal atrial fibrillation with rapid ventricular response. REQUESTING PHYSICIAN: Dr. Josue Lozano HISTORY OF PRESENT ILLNESS: Ms. Muse is a 60-year-old female with a history of esophageal cancer, metastatic, status post prior chemotherapy and radiation, who is to probably enter hospice care stat post prior esophageal stent, anemia, dysphagia, who presented with shortness of breath to outside hospital, [facility], and then was transferred to [facility] due to insurance skye sons. Since arrival, the patient has been treated for pneumonia with antibiotics, receiving gentle Lasix diuresis, ongoing steroids. The patient additionally has been consulted by palliative care, a nd was counseled by GI services and underwent an EGD. Post-procedure, patient had onset of a tachya rrhythmia, rates of 180, consistent with AFib, A-flutter, which had rapid ventricular response and d iffuse nonspecific ST-T abnormalities. The patient was therefore transferred to telemetry, had a ca rdiology consult requested. Since transfer to telemetry, patient has had conversion back to sinus r hythm and remains in this at this time. The patient denies chest pain and states she had shortness breath that has improved. PAST MEDICAL HISTORY: As above in HPI. MEDICATIONS CURRENTLY IN HOSPITAL: 1. Decadron 6 mg IV q.6. 2. Dilaudid. 3. Trazodone. 4. Zosyn. 5. Lasix 40 mg IV daily. 6. Mucomyst. 7. DuoNebs. 8. Protonix 40 mg IV daily. 9. Azithromycin. 10. Zofran. 11. Tylenol. ALLERGIES: NO KNOWN DRUG ALLERGIES. SOCIAL HISTORY: No tobacco, ETOH or illicit drug use currently. FAMILY HISTORY: No history of sudden cardiac or early CAD. REVIEW OF SYSTEMS: As above in HPI. CONSTITUTIONAL: No fevers, chills. PULMONARY: Shortness of breath. CARDIOVASCULAR: Atrial fibrillation with rapid ventricular response. GASTROINTESTINAL: No vomiting. GENITOURINARY: No hematuria. MUSCULOSKELETAL: Degenerative joint disease, cachexia. PHYSICAL EXAMINATION: VITAL SIGNS: Temperature 98.1, blood pressure most recently 109/67, pulse 99, respiratory rate 19, saturating 92%. GENERAL: The patient is alert, awake, complaining of intermittent shortness of breath. NECK: JVP approximately 9 cm of water. CHEST: Fair movement throughout with mild decreased breath sounds at bases bilaterally. HEART: Regular rate and rhythm. Normal S1, S2, I/ systolic murmur. ABDOMEN: Positive bowel sounds, soft. EXTREMITIES: Cachectic appearing, no lower extremity edema, 1+ pulses bilaterally, posterior tibial . LABORATORIES: White count 11.9, hemoglobin 8.8, platelet count of 636. Sodium 135, potassium 3.9, creatinine 0.36, BUN 12. INR of 1.2. ABG revealing a pH of 7.445, a pO2 of 78, pCO2 of 39. IMAGING STUDIES: Chest x-ray most recently from the 2nd revealing new focal opacity in the right up per lobe inferiorly concerning for pneumonia. Poorly defined retrocardiac mass. IMPRESSION: 1. Paroxysmal atrial fibrillation with rapid ventricular response, now in sinus rhythm. 2. Abnormal electrocardiogram with nonspecific ST abnormalities in the setting of tachyarrhythmias. 3. Hypertension, borderline. 4. 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 5. History of dysphagia, status post esophageal stent. 6. Anemia. 7. Pneumonia. RECOMMENDATIONS: 1. At this time, would maintain patient on telemetry monitoring to follow rhythm and rate control c losely. 2. Check a TSH to be sure that subclinical hyperthyroidism did not trigger the patient's bout of pa roxysmal atrial fibrillation with rapid ventricular response. 3. Start patient on a low-dose beta christophe, and will additionally give patient low-dose amiodarone in attempt to maintain the sinus rhythm. At this time will start patient on aspirin and low-dose L ovenox for prevention of thrombolic complications in the setting of atrial fibrillation, as tolerate d. 4. Continue the patient's gentle Lasix diuresis as tolerated. 5. Check a 2D echo to further assess the patient's ejection fraction, wall motion and any major isaias ve abnormalities. 6. Continue the patient's current antibiotics and follow up all culture data. 7. Continue the patient's steroids and pain control. Thank you for allowing me to take part in the care of this patient. I will continue to follow her c losely with you. Further recommendations will be made as the patient progresses through her [facility] clinical course. Dictated By: ELLE BATEMAN/HOWIE Conf#: [id number] DID#: [id number] CC: JOSUE LOZANO MD; HECTOR WINSTON MD;*[facility]*
--- NOTE | 2016-06-27 14:10 | PN ---
Date/Time of Note Date/Time of Note DATE: 06/27/16 TIME: 14:09 Assessment/Plan VTE Prophylaxis VTE Prophylaxis Intervention: other Lines/Catheters IV C[facility]ter [facility]): [facility] CATH Urinary Cath still in place: No Assessment/Plan Chief Complaint/Hosp Course IMPRESSION: 1. Lung infiltrate./pleural effusion s/p thoracentesis/lung mass 2. The patient has res insufficiency. 3. History of stent placement. 4. History of dyspepsia. 5. History of peptic ulcer disease. 6. History of anemia. 7. History of blood transfusion. 8. History of chemotherapy. 9. History of Port-A-Cath placement. 10. History of multiple episodes of possible aspiration pneumonia. 11 lung mass poss mets PLAN ANTIBIOTIC,PER ONCOLOGY ck pleural fluid report lung biopsy hold by dr miller comfort care oncology Problems: Subjective 24 Hr Interval Summary Cardiovascular: lightheadedness, other (sob+) Exam/Review of Systems Vital Signs Vitals Vital Signs Date Time Temp Pulse Resp B/P Pulse Ox O2 Delivery O2 Flow Rate FiO2 06/27/16 12:40 98.1 99 19 109/67 92 06/27/16 12:17 2.0 28 06/27/16 12:17 Nasal Cannula Intake and Output 06/26/16 06/26/16 06/27/16 15:00 23:00 07:00 Intake Total 930 ml 300 ml Balance 930 ml 300 ml Exam Neck: supple Respiratory: clear to auscultation Cardiovascular: regular rate and rhythm Gastrointestinal: soft Musculoskeletal: nl extremities to inspection Results Result Diagram: 06/25/16 0453 06/23/16 0455 Results 24 hrs Laboratory Tests Test 06/27/16 07:47 Bedside Glucose 134 Medications Medications Current Medications Azithromycin (Zithromax 500mg/ NS (Pmx)) 250 ml @ 250 mls/hr Q24H IVPB Last administered on 06/26/16 21:58; Admin Dose 250 MLS/HR; Start 06/19/16 at 22:00 Ondansetron HCl (Zofran Inj) 4 mg Q4H PRN IV NAUSEA AND/OR VOMITING Last administered on 06/20/16at 17:20; Admin Dose 4 MG; Start 06/19/16 at 06:30 Pantoprazole (Protonix Iv) 40 mg DAILY@06 IV Last administered on 06/27/16 05: 33; Admin Dose 40 MG; Start 06/20/16 at 06:00 Acetaminophen 650 mg 650 mg Q6H PRN PO PAIN AND OR ELEVATED TEMP; Start at 06:30 Piperacillin Sod/ Tazobactam Sod (Zosyn 3.375gm/ 100 ml (Pmx)) 100 ml @ 200 mls /hr Q6 IVPB Last administered on 06/27/16 13:18; Admin Dose 200 MLS/HR; Start 06/24/16 at 13:30 Furosemide (Lasix) 40 mg DAILY IV Last administered on 06/26/16 08:13; Admin Dose 40 MG; Start 06/24/16 at 13:30 Hydromorphone HCl (Dilaudid PICKLING OPERATOR) 0.1 MG/HR CONTINUOUS R... Q4PCA IV Last administered on 06/27/16 00:52; Admin Dose 6 MG; Start 06/26/16 at 14:00; Status Future hold Trazodone HCl (Desyrel) 25 mg HS PRN PO INSOMNIA Last administered on 06/26/16 22:13; Admin Dose 25 MG; Start 06/26/16 at 14:00 Dexamethasone (Decadron) 6 mg Q6 IV Last administered on 06/27/16 13:18; Admin Dose 6 MG; Start 06/27/16 at 00:00 Guaifenesin 200 mg 200 mg Q4H PRN PO COUGH; Start 06/26/16 at 21:00 Diltiazem HCl (Cardizem-D5W 125 Mg/125 ml Drip) 125 ml @ 5 mls/hr TITRATE IV Last administered on 06/27/16 09:48; Admin Dose 10 MLS/HR; Start 06/27/16 at 09: 00 Metoprolol Tartrate (Lopressor) 25 mg BID PO ; Start 06/27/16 at 21:00 Metoprolol Tartrate (Lopressor) 5 mg Q4H PRN IV HR>110 Hold SBP<100; Start 06/27 at 13:00 Amiodarone HCl (Cordarone) 200 mg BID PO Last administered on 06/27/16 13:19; Admin Dose 200 MG; Start 06/27/16 at 13:00 Aspirin (Ecotrin) 325 mg DAILY PO Last administered on 06/27/16 13:19; Admin Dose 325 MG; Start 06/27/16 at 13:00 Enoxaparin Sodium (Lovenox) 40 mg DAILY SC ; Start 06/28/16 at 09:00 OK LOZANO MD Jun 27, 2016 14:10
[2016-06-27] MEDS: METOPROLOL 25 MG TAB PO SCH (20:21)
[2016-06-27] MEDS: AZITHROMYCIN 500MG/NS (PMX) 250 ML IVPB SCH (21:28)
[2016-06-27] MEDS: traZODone 50 MG TAB PO PRN (22:11)
[2016-06-28] VITALS (13 sets, daily range): BP systolic 86–117; BP diastolic 58–90; PULSE 107–156; RESP 16–20
[2016-06-28] MEDS: ALBUTEROL/IPRATROPIUM (NEB) 3 ML AMP HHN PRN ×4 (00:13→15:46)
[2016-06-28] MEDS: HYDROmorphONE 0.2 MG/ML PCA IV SCH ×3 (01:16→21:12)
[2016-06-28] MEDS ORDERED: SOD CHLORIDE 0.9% 500 ML IV ONE (02:00)
[2016-06-28] MEDS: ACETYLCYSTEINE 20% 4 ML VIAL NEB SCH ×4 (02:00→20:00)
[2016-06-28] MEDS ORDERED: DIGOXIN 500 MCG INJ IV ONE (02:00)
[2016-06-28] MEDS: AMIODARONE 900 MG in DEXTROSE 5% 482 ML IV SCH (03:34)
[2016-06-28] MEDS: PIPER-TAZO 3.375 GM IV (PMX) 100 ML IVPB SCH ×4 (05:32→22:59)
[2016-06-28] MEDS: DEXAMETHASONE 4 MG/ML 1 ML INJ IV SCH ×4 (05:32→22:59)
[2016-06-28] MEDS: PANTOPRAZOLE 40 MG INJ IV SCH (05:32)
[2016-06-28 05:43] LABS: CHOL/HDL RATIO 4.3 RATIO
[2016-06-28] MEDS: AMIODARONE 200 MG TAB PO SCH ×2 (08:27→20:16)
[2016-06-28] MEDS: ASPIRIN (EC) 325 MG TAB PO SCH (08:27)
[2016-06-28] MEDS: METOPROLOL 25 MG TAB PO SCH ×2 (08:27→20:15)
[2016-06-28] MEDS ORDERED: ENOXAPARIN 40 MG/0.4 ML SYG SC SCH (09:00)
[2016-06-28] MEDS: FUROSEMIDE 40 MG INJ IV SCH (09:20)
--- NOTE | 2016-06-28 11:33 | CONS ---
Date/Time of Note Date/Time of Note DATE: 06/28/16 TIME: 11:31 Assessment/Plan Assessment/Plan Additional Assessment/Plan Additional Assessment/Plan IMPRESSION: 1. Esophageal cancer, spreading into lungs. 2. Pleural effusion, status post thoracocentesis. 3. Cachexia. 4. Dysphagia, secondary to blockage of the stent. 5. Old healed rib fracture. 6. Chronic pain syndrome 7.atrial fibrillation with rapid response and drop in BP Plan EGD with dislodgement of food If tumor ingrowth ,then APC for debulking procedure cancelled.pt. was unstable,discussed with veterinary manager EGD on Friday Consultation Date/Type/Reason Admit Date/Time Jun 19, 2016 at 03:07 Initial Consult Date 06/20/16 Type of Consultation: hematology Referring Provider: OK LZOANO MD 24 HR Interval Summary Constitutional: poor po, requiring IVF Exam/Review of Systems Vital Signs Vitals Vital Signs Date Time Temp Pulse Resp B/P Pulse Ox O2 Delivery O2 Flow Rate FiO2 06/28/16 10:53 20 06/28/16 08:45 107 06/28/16 08:25 98 3.0 06/28/16 08:24 Nasal Cannula 06/28/16 07:47 98.1 92/68 06/27/16 19:50 28 Intake and Output 06/27/16 06/27/16 06/28/16 15:00 23:00 07:00 Intake Total 40 ml 400 ml 240 ml Balance 40 ml 400 ml 240 ml Exam Constitutional: alert, oriented, well developed Psych: nl mood/affect, no complaints Head: atraumatic, normocephalic Eyes: EOMI, PERRL, nl conjunctiva, nl lids, nl sclera ENMT: nl external ears & nose, nl lips & teeth, nl nasal mucosa & septum Neck: non-tender, supple Respiratory: clear to auscultation, normal air movement Cardiovascular: nl pulses, regular rate and rhythm Gastrointestinal: nl liver, spleen, non-tender, soft Musculoskeletal: nl extremities to inspection, nl gait and stance Extremities: normal pulses Neurological: BULK SEALER OPERATOR II-XII intact, nl mental status, nl speech, nl strength Skin: nl turgor, No rash or lesions Lymph: nl lymph nodes Results Result Diagram: 06/25/16 0453 Results 24 hrs Laboratory Tests Test 06/27/16 13:40 06/27/16 19:40 06/28/16 00:18 06/28/16 05:00 Thyroid Stimulating Hormone (TSH) 0.556 Troponin I < 0.010 < 0.012 < 0.012 Cholesterol Level 136 Cholesterol/HDL Ratio 4.3 HDL Cholesterol 31 L LDL Cholesterol, Calculated 81 Triglycerides Level 118 Medications Medications Current Medications Azithromycin (Zithromax 500mg/ NS (Pmx)) 250 ml @ 250 mls/hr Q24H IVPB Last administered on 06/27/16 21:28; Admin Dose 250 MLS/HR; Start 06/19/16 at 22:00 Ondansetron HCl (Zofran Inj) 4 mg Q4H PRN IV NAUSEA AND/OR VOMITING Last administered on 06/20/16at 17:20; Admin Dose 4 MG; Start 06/19/16 at 06:30 Pantoprazole (Protonix Iv) 40 mg DAILY@06 IV Last administered on 06/28/16 05: 32; Admin Dose 40 MG; Start 06/20/16 at 06:00 Acetaminophen 650 mg 650 mg Q6H PRN PO PAIN AND OR ELEVATED TEMP; Start at 06:30 Piperacillin Sod/ Tazobactam Sod (Zosyn 3.375gm/ 100 ml (Pmx)) 100 ml @ 200 mls /hr Q6 IVPB Last administered on 06/28/16 05:32; Admin Dose 200 MLS/HR; Start 06/24/16 at 13:30 Furosemide (Lasix) 40 mg DAILY IV Last administered on 06/28/16 09:20; Admin Dose 40 MG; Start 06/24/16 at 13:30 Hydromorphone HCl (Dilaudid RN TRAINING) 0.1 MG/HR CONTINUOUS R... Q4PCA IV Last administered on 06/28/16 10:51; Admin Dose 6 MG; Start 06/26/16 at 14:00; Status Future hold Trazodone HCl (Desyrel) 25 mg HS PRN PO INSOMNIA Last administered on 06/27/16 22:11; Admin Dose 25 MG; Start 06/26/16 at 14:00 Dexamethasone (Decadron) 6 mg Q6 IV Last administered on 06/28/16 05:32; Admin Dose 6 MG; Start 06/27/16 at 00:00 Guaifenesin (Robitussin Liquid Cup) 200 mg Q4H PRN PO COUGH; Start 06/26/16 at 21:00 Metoprolol Tartrate (Lopressor) 25 mg BID PO ; Start 06/27/16 at 21:00 Metoprolol Tartrate (Lopressor) 5 mg Q4H PRN IV HR>110 Hold SBP<100; Start 06/27 at 13:00 Amiodarone HCl (Cordarone) 200 mg BID PO Last administered on 06/27/16 20:20; Admin Dose 200 MG; Start 06/27/16 at 13:00 Aspirin (Ecotrin) 325 mg DAILY PO Last administered on 06/27/16 13:19; Admin Dose 325 MG; Start 06/27/16 at 13:00 Enoxaparin Sodium 40 mg 40 mg DAILY SC ; Start 06/28/16 at 09:00 Amiodarone HCl/ Dextrose (Cordarone Iv/ D5W) 500 ml @ 0 mls/hr Q0M IV Last administered on 06/28/16 03:34; Admin Dose 33.4 MLS/HR; Start 06/28/16 at 03:00; Stop 06/29/16 at 02:59 TIERRA LERMA MD Jun 28, 2016 11:33
--- NOTE | 2016-06-28 11:39 | CONS ---
Date/Time of Note Date/Time of Note DATE: 06/28/16 TIME: 11:38 Consult Date/Type/Reason Admit Date/Time Jun 19, 2016 at 03:07 Initial Consult Date 06/20/16 Type of Consultation: pulmonary Ordering Provider: OK LOZANO MD Subjective Patient stable still has shortness of breath on minimal exertion Objective Vital Signs Date Time Temp Pulse Resp B/P Pulse Ox O2 Delivery O2 Flow Rate FiO2 06/28/16 10:53 20 06/28/16 08:45 107 06/28/16 08:25 98 3.0 06/28/16 08:24 Nasal Cannula 06/28/16 07:47 98.1 92/68 06/27/16 19:50 28 Intake and Output 06/27/16 06/27/16 06/28/16 15:00 23:00 07:00 Intake Total 40 ml 400 ml 240 ml Balance 40 ml 400 ml 240 ml PHYSICAL EXAMINATION: GENERAL: Thin lady, comfortable at rest, no acute distress. Audible rales VITAL SIGNS: As above NECK: Supple. No JVD or lymphadenopathy. CARDIAC: S1, S2, no added sounds or murmurs. CHEST: Diminished air entry bilaterally. ABDOMEN: Soft, nontender. No guarding or rebound. EXTREMITIES: No cyanosis, clubbing. NEUROLOGIC: Generalized weakness. Results/Medications Result Diagram: 06/25/16 0453 Results 24 hrs Laboratory Tests Test 06/27/16 13:40 06/27/16 19:40 06/28/16 00:18 06/28/16 05:00 Thyroid Stimulating Hormone (TSH) 0.556 Troponin I < 0.010 < 0.012 < 0.012 Cholesterol Level 136 Cholesterol/HDL Ratio 4.3 HDL Cholesterol 31 L LDL Cholesterol, Calculated 81 Triglycerides Level 118 Medications Current Medications Azithromycin (Zithromax 500mg/ NS (Pmx)) 250 ml @ 250 mls/hr Q24H IVPB Last administered on 06/27/16t 21:28; Admin Dose 250 MLS/HR; Start 06/19/16 at 22:00 Ondansetron HCl (Zofran Inj) 4 mg Q4H PRN IV NAUSEA AND/OR VOMITING Last administered on 06/20/16at 17:20; Admin Dose 4 MG; Start 06/19/16 at 06:30 Pantoprazole (Protonix Iv) 40 mg DAILY@06 IV Last administered on 06/28/16 05: 32; Admin Dose 40 MG; Start 06/20/16 at 06:00 Acetaminophen 650 mg 650 mg Q6H PRN PO PAIN AND OR ELEVATED TEMP; Start at 06:30 Piperacillin Sod/ Tazobactam Sod (Zosyn 3.375gm/ 100 ml (Pmx)) 100 ml @ 200 mls /hr Q6 IVPB Last administered on 06/28/16 05:32; Admin Dose 200 MLS/HR; Start 06/24/16 at 13:30 Furosemide (Lasix) 40 mg DAILY IV Last administered on 06/28/16 09:20; Admin Dose 40 MG; Start 06/24/16 at 13:30 Hydromorphone HCl (Dilaudid PHYSIATRIST) 0.1 MG/HR CONTINUOUS R... Q4PCA IV Last administered on 06/28/16 10:51; Admin Dose 6 MG; Start 06/26/16 at 14:00; Status Future hold Trazodone HCl (Desyrel) 25 mg HS PRN PO INSOMNIA Last administered on 06/27/16 22:11; Admin Dose 25 MG; Start 06/26/16 at 14:00 Dexamethasone (Decadron) 6 mg Q6 IV Last administered on 06/28/16 05:32; Admin Dose 6 MG; Start 06/27/16 at 00:00 Guaifenesin (Robitussin Liquid Cup) 200 mg Q4H PRN PO COUGH; Start 06/26/16 at 21:00 Metoprolol Tartrate (Lopressor) 25 mg BID PO ; Start 06/27/16 at 21:00 Metoprolol Tartrate (Lopressor) 5 mg Q4H PRN IV HR>110 Hold SBP<100; Start 06/27 at 13:00 Amiodarone HCl (Cordarone) 200 mg BID PO Last administered on 06/27/16 20:20; Admin Dose 200 MG; Start 06/27/16 at 13:00 Aspirin (Ecotrin) 325 mg DAILY PO Last administered on 06/27/16 13:19; Admin Dose 325 MG; Start 06/27/16 at 13:00 Enoxaparin Sodium 40 mg 40 mg DAILY SC ; Start 06/28/16 at 09:00 Amiodarone HCl/ Dextrose (Cordarone Iv/ D5W) 500 ml @ 0 mls/hr Q0M IV Last administered on 06/28/16t 03:34; Admin Dose 33.4 MLS/HR; Start 06/28/16 at 03:00; Stop 06/29/16 at 02:59 Assessment/Plan Chief Complaint/Hosp Course IMPRESSION AND PLAN: 1. Esophageal tumor with evidence of metastatic spread. Extensive mediastinal mass 2. Possible primary lung cancer. However unlikely 3. Recent thoracentesis with pleural fluid studies, cytology negative for malignancy Plan. 1. Pulm toilet. BDs, lasix 2. Aspiration precautions 3. Discussed with palliative care overall prognosis is very poor [facility] evaluation Problems: JOSSY GRAHAM MD, [facility] Jun 28, 2016 11:39
--- NOTE | 2016-06-28 12:05 | RADRPT ---
Echocardiogram Report Patient Name: PALMER REBOLLEDO Gender: Female Date: 1955 Study Date: 27-Jun-2016 Fitness Management Director: Crystal Watson RDCS Location: I Ref. Physician: ELLE LIND Quality: Good Procedures: Transthoracic echocardiogram with complete 2D, M-Mode, and doppler examination. Indications: Evaluate Left Ventricular function. 2D/M Mode Doppler Measurement Value Normal Ranges Measurement Value Normal Ranges LVIDd 2D 4.2 3.5 - 5.6 cm AV Peak Devaughn 1.6 m/sec LVIDs 2D 1.8 2.1 - 4.1 cm AV Peak PG 10.4 mmHg LVPWd 2D 0.8 0.6 - 1.1 cm LVOT Peak Devaughn 1.4 m/sec IVSd 2D 0.9 0.6 - 1.1 cm LVOT Peak PG 8.1 mmHg AoR Diam 2D 2.3 2.0 - 3.7 cm MV E Peak Devaughn 0.6 m/sec EDV 2D 80.5 cm3 MV A Peak Devaughn 0.9 m/sec ESV 2D 5.9 cm3 MV E/A 0.6 LA Dimen 2D 2.1 2.3 - 4.0 cm MV Decel Time 175 msec MV Decel Brooke 3 MV E/A 0.6 TR Peak Devaughn 2.6 m/sec TR Peak PG 27.3 mmHg RVSP 30.0 mmHg Findings Left Ventricle: Normal left ventricular systolic function. Normal left ventricular cavity size. Normal left ventricular wall thickness. Ejection fraction is visually estimated at 6065 %. Tissue Doppler/Mitral Doppler indices are consistent with impaired relaxation (Stage I diastolic dysfunction). Right Ventricle: Normal right ventricular size. Normal right ventricular systolic function. Left Atrium: The left atrium is normal in size. Right Atrium: Linear artifact in right atrium suggestive of catheter. Mitral Valve: Normal appearance and function of the mitral valve with trace physiologic regurgitation. Aortic Valve: Normal appearance of the aortic valve. No significant aortic stenosis or insufficiency. Tricuspid Valve: Normal appearance of the tricuspid valve. Estimated peak PA systolic pressure 30 mmHg. There is mild tricuspid regurgitation. Pericardium: Small pericardial effusion. No echocardiographic evidence to suggest pericardial tamponade. Left pleural effusion seen. Aorta: Normal aortic root. IVC: Normal size and normal respiratory collapse consistent with normal right atrial pressure. Conclusions 1.Normal left ventricular systolic function. Normal left ventricular cavity size. Normal left ventricular wall thickness. Ejection fraction is visually estimated at 60-65 %. Tissue Doppler/Mitral Doppler indices are consistent with impaired relaxation (Stage I diastolic dysfunction). 2.Normal right ventricular size. Normal right ventricular systolic function. 3.Normal appearance of the tricuspid valve. Estimated peak PA systolic pressure 30 mmHg. There is mild tricuspid regurgitation. 4.Normal appearance and function of the mitral valve with trace physiologic regurgitation. 5.Small pericardial effusion. No echocardiographic evidence to suggest pericardial tamponade. Left pleural effusion seen. Electronically Signed By: Elle Lind 28-Jun-2016 12:05:00 -0800 Patient Name: PALMER REBOLLEDO Study Date: 27-Jun-2016 [id number]
--- NOTE | 2016-06-28 12:23 | RADRPT ---
Vent Rate: 117 bpm RR Interval: 0 msec ND Interval: 0 msec QRS Duration: 88 msec QT Interval: 328 msec QTC Interval: 457 msec P-R-T Hendrix: 0 - 33 - 58 degrees Atrial fibrillation with rapid ventricular response Nonspecific T wave abnormality Abnormal ECG Electronically Signed By: Karthik Banegas [id number]
--- NOTE | 2016-06-28 12:42 | CONS ---
Date/Time of Note Date/Time of Note DATE: 06/28/16 TIME: 12:37 Assessment/Plan Assessment/Plan Chief Complaint/Hosp Course IMPRESSION: 1. Paroxysmal atrial fibrillation with rapid ventricular response-again of onset overnight. TSH WNL 2. Abnormal electrocardiogram with nonspecific ST abnormalities in the setting of tachyarrhythmias.-negative troponin x 3/NL EF by echo this admit 3. Hypotension-NL EF by echom this admit 4. 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 5. History of dysphagia, status post esophageal stent. 6. Anemia. 7. Pneumonia. Recc: -Tele -serial ecg's -Started on iv amiodarone in attempt to return to SR -Will give IVP digoxin -Continue abx's and f/u cx data -Continue lovenox/asa and follow hgb closely -pnding GI procedure rescheduled to friday Problems: Consultation Date/Type/Reason Admit Date/Time Jun 19, 2016 at 03:07 Initial Consult Date 06/20/16 Type of Consultation: Cardiology Reason for Consultation PAF Referring Provider: OK LOZANO MD Exam/Review of Systems Vital Signs Vitals Vital Signs Date Time Temp Pulse Resp B/P Pulse Ox O2 Delivery O2 Flow Rate FiO2 06/28/16 12:32 152 06/28/16 11:47 98.9 19 92/65 98 06/28/16 08:25 3.0 06/28/16 08:24 Nasal Cannula 06/27/16 19:50 28 Intake and Output 06/27/16 06/27/16 06/28/16 15:00 23:00 07:00 Intake Total 40 ml 400 ml 240 ml Balance 40 ml 400 ml 240 ml Exam Review of Systems: CONSTITUTIONAL: No fevers, chills. PULMONARY: mild sob CARDIOVASCULAR: positive palpitations GASTROINTESTINAL: No nausea/vomiting. GENITOURINARY: No hematuria/dysuria. MUSCULOSKELETAL: No myagias/arthalgias. PSYCHIATRIC: The patient denies depression. NEUROLOGIC: No weakness Constitutional: alert Psych: no complaints Head: normocephalic ENMT: mucosa pink and moist Neck: jvd (8 cm water), supple Respiratory: diminished breath sounds (at bases/B) Cardiovascular: irregular rhythm (tachycardic) Gastrointestinal: non-tender, soft Musculoskeletal: muscle tone (normal) Extremities: edema (none) Neurological: other (No focal deficits) Results Result Diagram: 06/25/16 0453 Results 24 hrs Laboratory Tests Test 06/27/16 13:40 06/27/16 19:40 06/28/16 00:18 06/28/16 05:00 Thyroid Stimulating Hormone (TSH) 0.556 Troponin I < 0.010 < 0.012 < 0.012 Cholesterol Level 136 Cholesterol/HDL Ratio 4.3 HDL Cholesterol 31 L LDL Cholesterol, Calculated 81 Triglycerides Level 118 Medications Medications Current Medications Azithromycin (Zithromax 500mg/ NS (Pmx)) 250 ml @ 250 mls/hr Q24H IVPB Last administered on 06/27/16 21:28; Admin Dose 250 MLS/HR; Start 06/19/16 at 22:00 Ondansetron HCl (Zofran Inj) 4 mg Q4H PRN IV NAUSEA AND/OR VOMITING Last administered on 06/20/16at 17:20; Admin Dose 4 MG; Start 06/19/16 at 06:30 Pantoprazole (Protonix Iv) 40 mg DAILY@06 IV Last administered on 06/28/16 05: 32; Admin Dose 40 MG; Start 06/20/16 at 06:00 Acetaminophen 650 mg 650 mg Q6H PRN PO PAIN AND OR ELEVATED TEMP; Start at 06:30 Piperacillin Sod/ Tazobactam Sod (Zosyn 3.375gm/ 100 ml (Pmx)) 100 ml @ 200 mls /hr Q6 IVPB Last administered on 06/28/16 12:27; Admin Dose 200 MLS/HR; Start 06/24/16 at 13:30 Furosemide (Lasix) 40 mg DAILY IV Last administered on 06/28/16 09:20; Admin Dose 40 MG; Start 06/24/16 at 13:30 Hydromorphone HCl (Dilaudid SULFIDE HEAD OPERATOR) 0.1 MG/HR CONTINUOUS R... Q4PCA IV Last administered on 06/28/16 10:51; Admin Dose 6 MG; Start 06/26/16 at 14:00; Status Future hold Trazodone HCl (Desyrel) 25 mg HS PRN PO INSOMNIA Last administered on 06/27/16 22:11; Admin Dose 25 MG; Start 06/26/16 at 14:00 Dexamethasone (Decadron) 6 mg Q6 IV Last administered on 06/28/16 12:27; Admin Dose 6 MG; Start 06/27/16 at 00:00 Guaifenesin (Robitussin Liquid Cup) 200 mg Q4H PRN PO COUGH; Start 06/26/16 at 21:00 Metoprolol Tartrate (Lopressor) 25 mg BID PO ; Start 06/27/16 at 21:00 Metoprolol Tartrate (Lopressor) 5 mg Q4H PRN IV HR>110 Hold SBP<100; Start 06/27 at 13:00 Amiodarone HCl (Cordarone) 200 mg BID PO Last administered on 06/27/16 20:20; Admin Dose 200 MG; Start 06/27/16 at 13:00 Aspirin (Ecotrin) 325 mg DAILY PO Last administered on 06/27/16 13:19; Admin Dose 325 MG; Start 06/27/16 at 13:00 Enoxaparin Sodium 40 mg 40 mg DAILY SC Last administered on 06/28/16 12:35; Admin Dose 40 MG; Start 06/28/16 at 09:00 Amiodarone HCl/ Dextrose (Cordarone Iv/ D5W) 500 ml @ 0 mls/hr Q0M IV Last administered on 06/28/16 03:34; Admin Dose 33.4 MLS/HR; Start 06/28/16 at 03:00; Stop 06/29/16 at 02:59 ELLE LIND Jun 28, 2016 12:42
--- NOTE | 2016-06-28 12:47 | CONS ---
Date/Time of Note Date/Time of Note DATE: 06/28/16 TIME: 12:44 Assessment/Plan Assessment/Plan Chief Complaint/Hosp Course The patient is a 60 year old woman with locally advanced esophageal cancer with history of radiation pneumonitis, most recently on xeloda 1500 mg PO BID, now readmitted for hypoxemia and pain. CT scan revealed bilateral enlarging hilar masses. # Bilateral Hilar masses, concerning for malignancy - These were going to be biopsied but in speaking with radiology there is significant risk associated with the biopsy given her history of radiation. Furthermore, even though pleural fluid cytology is negative it appears that the cancer has also spread to L1. Given her metastatic that is not responding to current therapy and the fact that patient is extremely debilitated, I agree with palliative care measures and hospice care. I appreciate Dr. Sánchez's involvement in her pain management and goals of care conversations. Patient has agreed to hospice care. Will defer to Dr. Sánchez on the best way to proceed with this given patient's acute symptoms of shortness and pain. #intractable pain -palliative care / pain management has been consulted to assist with this. was on a Dilaudid SENIOR LIVING SALES COUNSELOR which is now on hold for patient's afib # Esophageal cancer - Ok to hold xeloda for now while being treated for pneumonia, patient was not taking at home for the past 4 days due to lack of appetite and inability to eat. # Dysphagia - Dr. Barron to re-evaluate the stent and its patency. EGD The patient is a 60 year old woman with locally advanced esophageal cancer with history of radiation pneumonitis, most recently on xeloda 1500 mg PO BID, now readmitted for hypoxemia and pain. CT scan revealed bilateral enlarging hilar masses. # Afib -on Cardizem drip Approximate 40 min were spent at patient's bedside and in coordination of her care Problems: Consultation Date/Type/Reason Admit Date/Time Jun 19, 2016 at 03:07 Initial Consult Date 06/20/16 Type of Consultation: Hematology Reason for Consultation esophageal cancer Referring Provider: OK LOZANO MD 24 HR Interval Summary Free Text/Dictation still very short of breath. states she wants to be done with her suffering. now on amiodarone drip. to have EGD done today Exam/Review of Systems Vital Signs Vitals Vital Signs Date Time Temp Pulse Resp B/P Pulse Ox O2 Delivery O2 Flow Rate FiO2 1/6/17 12:32 152 06/28/16 11:47 98.9 19 92/65 98 06/28/16 08:25 3.0 06/28/16 08:24 Nasal Cannula 06/27/16 19:50 28 Intake and Output 06/27/16 06/27/16 06/28/16 15:00 23:00 07:00 Intake Total 40 ml 400 ml 240 ml Balance 40 ml 400 ml 240 ml Exam Constitutional: alert, frail, oriented Psych: anxiety, depression Head: normocephalic Eyes: nl conjunctiva ENMT: nl external ears & nose Neck: non-tender, supple Respiratory: crackles/rales, diminished breath sounds, labored breathing Cardiovascular: other (afib) Musculoskeletal: nl extremities to inspection Results Result Diagram: 06/25/16 0453 Results 24 hrs Laboratory Tests Test 06/27/16 13:40 06/27/16 19:40 06/28/16 00:18 06/28/16 05:00 Thyroid Stimulating Hormone (TSH) 0.556 Troponin I < 0.010 < 0.012 < 0.012 Cholesterol Level 136 Cholesterol/HDL Ratio 4.3 HDL Cholesterol 31 L LDL Cholesterol, Calculated 81 Triglycerides Level 118 Medications Medications Current Medications Azithromycin (Zithromax 500mg/ NS (Pmx)) 250 ml @ 250 mls/hr Q24H IVPB Last administered on 06/27/16 21:28; Admin Dose 250 MLS/HR; Start 06/19/16 at 22:00 Ondansetron HCl (Zofran Inj) 4 mg Q4H PRN IV NAUSEA AND/OR VOMITING Last administered on 06/20/16at 17:20; Admin Dose 4 MG; Start 06/19/16 at 06:30 Pantoprazole (Protonix Iv) 40 mg DAILY@06 IV Last administered on 06/28/16 05: 32; Admin Dose 40 MG; Start 06/20/16 at 06:00 Acetaminophen 650 mg 650 mg Q6H PRN PO PAIN AND OR ELEVATED TEMP; Start at 06:30 Piperacillin Sod/ Tazobactam Sod (Zosyn 3.375gm/ 100 ml (Pmx)) 100 ml @ 200 mls /hr Q6 IVPB Last administered on 06/28/16 12:27; Admin Dose 200 MLS/HR; Start 06/24/16 at 13:30 Furosemide (Lasix) 40 mg DAILY IV Last administered on 06/28/16 09:20; Admin Dose 40 MG; Start 06/24/16 at 13:30 Hydromorphone HCl (Dilaudid SENIOR LIVING SALES COUNSELOR) 0.1 MG/HR CONTINUOUS R... Q4PCA IV Last administered on 06/28/16 10:51; Admin Dose 6 MG; Start 06/26/16 at 14:00; Status Future hold Trazodone HCl (Desyrel) 25 mg HS PRN PO INSOMNIA Last administered on 06/27/16 22:11; Admin Dose 25 MG; Start 06/26/16 at 14:00 Dexamethasone (Decadron) 6 mg Q6 IV Last administered on 06/28/16 12:27; Admin Dose 6 MG; Start 06/27/16 at 00:00 Guaifenesin (Robitussin Liquid Cup) 200 mg Q4H PRN PO COUGH; Start 06/26/16 at 21:00 Metoprolol Tartrate (Lopressor) 25 mg BID PO ; Start 06/27/16 at 21:00 Metoprolol Tartrate (Lopressor) 5 mg Q4H PRN IV HR>110 Hold SBP<100; Start 06/27 at 13:00 Amiodarone HCl (Cordarone) 200 mg BID PO Last administered on 06/27/16 20:20; Admin Dose 200 MG; Start 06/27/16 at 13:00 Aspirin (Ecotrin) 325 mg DAILY PO Last administered on 06/27/16 13:19; Admin Dose 325 MG; Start 06/27/16 at 13:00 Enoxaparin Sodium 40 mg 40 mg DAILY SC Last administered on 06/28/16 12:35; Admin Dose 40 MG; Start 06/28/16 at 09:00 Amiodarone HCl/ Dextrose (Cordarone Iv/ D5W) 500 ml @ 0 mls/hr Q0M IV Last administered on 06/28/16 03:34; Admin Dose 33.4 MLS/HR; Start 06/28/16 at 03:00; Stop 06/29/16 at 02:59 Digoxin (Digoxin) 250 mcg Q6H IV ; Start 06/28/16 at 13:00; Stop 06/28/16 at 19:01 NISSA MCNALLY M.D. Jun 28, 2016 12:47
[2016-06-28] MEDS: DIGOXIN 500 MCG INJ IV SCH ×2 (14:47→20:16)
[2016-06-28] MEDS: ONDANSETRON 4 MG INJ IV PRN (15:42)
--- NOTE | 2016-06-28 17:05 | PN ---
Date/Time of Note Date/Time of Note DATE: 06/28/16 TIME: 17:04 Assessment/Plan VTE Prophylaxis VTE Prophylaxis Intervention: other Lines/Catheters IV [facility]ter [facility] Peripheral IV Urinary Cath still in place: No Assessment/Plan Chief Complaint/Hosp Course IMPRESSION: 1. Lung infiltrate./pleural effusion s/p thoracentesis/lung mass 2. The patient has res insufficiency. 3. History of stent placement. 4. History of dyspepsia. 5. History of peptic ulcer disease. 6. History of anemia. 7. History of blood transfusion. 8. History of chemotherapy. 9. History of Port-A-Cath placement. 10. History of multiple episodes of possible aspiration pneumonia. 11 lung mass poss mets PLAN ANTIBIOTIC,PER ONCOLOGY comfort care per oncology Problems: Subjective 24 Hr Interval Summary Respiratory: shortness of breath (better) Gastrointestinal: no complaints Exam/Review of Systems Vital Signs Vitals Vital Signs Date Time Temp Pulse Resp B/P Pulse Ox O2 Delivery O2 Flow Rate FiO2 06/28/16 16:30 151 06/28/16 16:27 98.4 20 117/90 95 06/28/16 15:53 2.0 06/28/16 15:51 Nasal Cannula 06/27/16 19:50 28 Intake and Output 06/27/16 06/27/16 06/28/16 15:00 23:00 07:00 Intake Total 40 ml 400 ml 240 ml Balance 40 ml 400 ml 240 ml Exam Neck: supple Respiratory: clear to auscultation Cardiovascular: regular rate and rhythm Gastrointestinal: soft Results Result Diagram: 06/25/16 0453 Results 24 hrs Laboratory Tests Test 06/27/16 19:40 06/28/16 00:18 06/28/16 05:00 Troponin I < 0.010 < 0.012 < 0.012 Cholesterol Level 136 Cholesterol/HDL Ratio 4.3 HDL Cholesterol 31 L LDL Cholesterol, Calculated 81 Triglycerides Level 118 Medications Medications Current Medications Azithromycin (Zithromax 500mg/ NS (Pmx)) 250 ml @ 250 mls/hr Q24H IVPB Last administered on 06/27/16 21:28; Admin Dose 250 MLS/HR; Start 06/19/16 at 22:00 Ondansetron HCl (Zofran Inj) 4 mg Q4H PRN IV NAUSEA AND/OR VOMITING Last administered on 06/28/16 15:42; Admin Dose 4 MG; Start 06/19/16 at 06:30 Pantoprazole (Protonix Iv) 40 mg DAILY@06 IV Last administered on 06/28/16 05: 32; Admin Dose 40 MG; Start 06/20/16 at 06:00 Acetaminophen 650 mg 650 mg Q6H PRN PO PAIN AND OR ELEVATED TEMP; Start at 06:30 Piperacillin Sod/ Tazobactam Sod (Zosyn 3.375gm/ 100 ml (Pmx)) 100 ml @ 200 mls /hr Q6 IVPB Last administered on 06/28/16 12:27; Admin Dose 200 MLS/HR; Start 06/24/16 at 13:30 Furosemide (Lasix) 40 mg DAILY IV Last administered on 06/28/16 09:20; Admin Dose 40 MG; Start 06/24/16 at 13:30; Status Future Hold Hydromorphone HCl (Dilaudid HADOOP ADMINISTRATOR) 0.1 MG/HR CONTINUOUS R... Q4PCA IV Last administered on 06/28/16 10:51; Admin Dose 6 MG; Start 06/26/16 at 14:00; Status Future hold Trazodone HCl (Desyrel) 25 mg HS PRN PO INSOMNIA Last administered on 06/27/16 22:11; Admin Dose 25 MG; Start 06/26/16 at 14:00 Dexamethasone (Decadron) 6 mg Q6 IV Last administered on 06/28/16 12:27; Admin Dose 6 MG; Start 06/27/16 at 00:00 Guaifenesin (Robitussin Liquid Cup) 200 mg Q4H PRN PO COUGH; Start 06/26/16 at 21:00 Metoprolol Tartrate (Lopressor) 25 mg BID PO ; Start 06/27/16 at 21:00 Metoprolol Tartrate (Lopressor) 5 mg Q4H PRN IV HR>110 Hold SBP<100; Start 06/27 at 13:00 Amiodarone HCl 200 mg 200 mg BID PO Last administered on 06/27/16 20:20; Admin Dose 200 MG; Start 06/27/16 at 13:00 Amiodarone HCl/ Dextrose (Cordarone Iv/ D5W) 500 ml @ 0 mls/hr Q0M IV Last administered on 06/28/16 03:34; Admin Dose 33.4 MLS/HR; Start 06/28/16 at 03:00; Stop 06/29/16 at 02:59 Digoxin (Digoxin) 250 mcg Q6H IV Last administered on 06/28/16 14:47; Admin Dose 250 MCG; Start 06/28/16 at 13:00; Stop 06/28/16 at 19:01 Enoxaparin Sodium (Lovenox) 40 mg Q12 SC ; Start 06/28/16 at 21:00 OK LOZNAO MD Jun 28, 2016 17:05
--- NOTE | 2016-06-28 17:35 | RADRPT ---
PROCEDURE: XR Chest. CLINICAL INDICATION: Pneumonia. Shortness of breath. TECHNIQUE: Single frontal view. COMPARISON: 06/24/2016. FINDINGS: There is a right internal jugular vein tunneled implanted port central venous catheter with the tip in the right atrium. A stent is present in the mid to distal esophagus. There is dense consolidati on in the right upper lobe inferiorly and in the right perihilar region consistent with pneumonia or related to the esophageal neoplasm. The appearance is slightly worse than seen previously. There is mild left basilar atelectasis. The heart size is normal. There is calcification in the aorta consistent with atherosclerosis. There is no pleural effusion. There is no pneumothorax. IMPRESSION: 1. Slightly worse appearance of the right lung. 2. No other change from 06/24/2016. RPTAT: QQ .Jarrod Mckoy MD, MD Date Time Electronically viewed and signed by .Jarrod Mckoy MD, MD on 06/28/2016 17:35 .R/
[2016-06-28 18:32] LABS: AADO2 Arterial 100.7 mmHg (7.0-24.0); Allen Test ACCEPTAB; Arterial Base Excess 8.2 mmol/L (-3.0-3); Arterial COHb 0.3 % (0.0-3.0); Arterial Fraction of Oxyhgb 92.2 % (93.0-99.0); Arterial HCO3 34.2 mmol/L (22.0-26.0); Arterial MetHb 0.2 % (0.0-1.5); Arterial Total Hemglobin 10.2 g/dl (12.0-18.0); MODE NASAL CANNULA
[2016-06-28] MEDS: D5W-0.45 NACL + KCL 20 MEQ 1,000 ML IV SCH (20:16)
[2016-06-28] MEDS: ENOXAPARIN 40 MG/0.4 ML SYG SC SCH (20:22)
[2016-06-28] MEDS: traZODone 50 MG TAB PO PRN (22:20)
[2016-06-28] MEDS: AZITHROMYCIN 500MG/NS (PMX) 250 ML IVPB SCH (22:59)
[2016-06-29] VITALS (14 sets, daily range): BP systolic 103–128; BP diastolic 64–72; PULSE 65–134; RESP 18–20
[2016-06-29] MEDS: ALBUTEROL/IPRATROPIUM (NEB) 3 ML AMP HHN PRN ×4 (01:33→17:52)
[2016-06-29] MEDS: ACETYLCYSTEINE 20% 4 ML VIAL NEB SCH ×3 (01:40→14:00)
[2016-06-29] MEDS: AMIODARONE 900 MG in DEXTROSE 5% 482 ML IV SCH (02:49)
[2016-06-29] MEDS: PANTOPRAZOLE 40 MG INJ IV SCH (05:21)
[2016-06-29] MEDS: PIPER-TAZO 3.375 GM IV (PMX) 100 ML IVPB SCH ×4 (05:21→23:32)
[2016-06-29] MEDS: DEXAMETHASONE 4 MG/ML 1 ML INJ IV SCH ×4 (05:21→23:32)
[2016-06-29] MEDS: HYDROmorphONE 0.2 MG/ML PCA IV SCH ×2 (07:32→15:14)
[2016-06-29] MEDS: METOPROLOL 25 MG TAB PO SCH ×2 (07:42→21:54)
[2016-06-29] MEDS: AMIODARONE 200 MG TAB PO SCH ×2 (07:43→21:54)
[2016-06-29] MEDS: ENOXAPARIN 40 MG/0.4 ML SYG SC SCH ×2 (07:45→22:04)
--- NOTE | 2016-06-29 13:04 | PN ---
Date/Time of Note Date/Time of Note DATE: 06/29/16 TIME: 13:01 Assessment/Plan VTE Prophylaxis VTE Prophylaxis Intervention: SCD's Lines/Catheters IV Catheter Type (from Nrs): Peripheral IV Urinary Cath still in place: No Assessment/Plan Assessment/Plan 1. Lung infiltrate./pleural effusion s/p thoracentesis/lung mass 2. The patient has res insufficiency. 3. History of stent placement. 4. History of dyspepsia. 5. History of peptic ulcer disease. 6. History of anemia. 7. History of blood transfusion. 8. History of chemotherapy. 9. History of Port-A-Cath placement. 10. History of multiple episodes of possible aspiration pneumonia. 11 lung mass poss mets Plan: pt agreed for hospice care, evaluated pt but franciscominooerich has not spoke with any hospice care meanwhile I ordered a case management consult for SNF placement with Hospice care IVF Pain meds Subjective 24 Hr Interval Summary Free Text/Dictation pt agreed for hospice care s/p palliative care consutl by Exam/Review of Systems Vital Signs Vitals Vital Signs Date Time Temp Pulse Resp B/P Pulse Ox O2 Delivery O2 Flow Rate FiO2 06/29/16 12:20 65 06/29/16 12:06 22 06/29/16 12:02 98.1 110/68 96 06/29/16 09:32 Nasal Cannula 5.0 06/29/16 01:35 32 Intake and Output 06/28/16 06/28/16 06/29/16 15:00 23:00 07:00 Intake Total 258.5 ml 672 ml 1030 ml Output Total 1900 ml Balance 258.5 ml -1228 ml 1030 ml Exam Constitutional: alert, frail, oriented Psych: anxiety, depression Head: normocephalic Eyes: nl conjunctiva ENMT: nl external ears & nose Neck: non-tender, supple Respiratory: crackles/rales, diminished breath sounds, labored breathing Cardiovascular: other (afib) Musculoskeletal: nl extremities to inspection Results Result Diagram: 06/25/16 0453 Results 24 hrs Laboratory Tests Test 06/28/16 16:59 Arterial Blood HCO3 34.2 H Arterial Blood Base Excess 8.2 H Arterial Blood Oxygen Saturation 92.7 L Rosendo Test ACCEPTAB Arterial Blood Gas Puncture Site Left Radial Arterial Blood Carboxyhemoglobin 0.3 Arterial Blood Date Drawn 06/28/2016 6:13:14 PM Arterial Blood Methemoglobin 0.2 Arterial Blood pCO2 (Temp correct) 55.5 H Arterial Blood pH (Temp corrected) 7.408 Arterial Blood pO2 (Temp corrected) 69.8 L Blood Gas A-a O2 Differential 100.7 H Blood Gas Actual Respiration Rate 23 Blood Gas Modality NASAL CANNULA Blood Gas Notified Time 06/28/2016 6:32:23 PM Blood Gas Notified Whom PUSHPA AKERS Blood Gas Specimen Source Blood arterial Blood Gas Temperature 37.0 FiO2 33.0 Oxyhemoglobin Percent 92.2 L Total Hemoglobin 10.2 L Medications Medications Current Medications Azithromycin (Zithromax 500mg/ NS (Pmx)) 250 ml @ 250 mls/hr Q24H IVPB Last administered on 06/28/16 22:59; Admin Dose 250 MLS/HR; Start 06/19/16 at 22:00 Ondansetron HCl (Zofran Inj) 4 mg Q4H PRN IV NAUSEA AND/OR VOMITING Last administered on 06/28/16 15:42; Admin Dose 4 MG; Start 06/19/16 at 06:30 Pantoprazole (Protonix Iv) 40 mg DAILY@06 IV Last administered on 06/29/16 05: 21; Admin Dose 40 MG; Start 06/20/16 at 06:00 Acetaminophen 650 mg 650 mg Q6H PRN PO PAIN AND OR ELEVATED TEMP; Start at 06:30 Piperacillin Sod/ Tazobactam Sod (Zosyn 3.375gm/ 100 ml (Pmx)) 100 ml @ 200 mls /hr Q6 IVPB Last administered on 06/29/16 12:08; Admin Dose 200 MLS/HR; Start 06/24/16 at 13:30 Furosemide (Lasix) 40 mg DAILY IV Last administered on 06/28/16 09:20; Admin Dose 40 MG; Start 06/24/16 at 13:30; Status Future Hold Hydromorphone HCl (Dilaudid LEAD SUSTAINABILITY SPECIALIST) 0.2 MG/HR CONTINUOUS R... Q4PCA IV Last administered on 06/29/16 07:32; Admin Dose 6 MG; Start 06/26/16 at 14:00; Status Future hold Trazodone HCl (Desyrel) 25 mg HS PRN PO INSOMNIA Last administered on 06/28/16 22:20; Admin Dose 25 MG; Start 06/26/16 at 14:00 Dexamethasone (Decadron) 6 mg Q6 IV Last administered on 06/29/16 12:07; Admin Dose 6 MG; Start 06/27/16 at 00:00 Guaifenesin (Robitussin Liquid Cup) 200 mg Q4H PRN PO COUGH; Start 06/26/16 at 21:00 Metoprolol Tartrate (Lopressor) 25 mg BID PO Last administered on 06/29/16 07: 42; Admin Dose 25 MG; Start 06/27/16 at 21:00 Metoprolol Tartrate (Lopressor) 5 mg Q4H PRN IV HR>110 Hold SBP<100; Start 06/27 at 13:00 Amiodarone HCl (Cordarone) 200 mg BID PO Last administered on 06/29/16 07:43; Admin Dose 200 MG; Start 06/27/16 at 13:00 Enoxaparin Sodium 40 mg 40 mg Q12 SC Last administered on 06/29/16 07:45; Admin Dose 40 MG; Start 06/28/16 at 21:00 Potassium Chloride/Dextrose/ Sod Cl (D5-1/2ns + KCl 20 Meq) 1,000 ml @ 40 mls/ hr Q24H IV Last administered on 06/28/16 20:16; Admin Dose 40 MLS/HR; Start 06/28/16 at 20:00 HECTOR WINSTON MD Jun 29, 2016 13:04
--- NOTE | 2016-06-29 14:01 | CONS ---
Date/Time of Note Date/Time of Note DATE: 06/29/16 TIME: 13:59 Assessment/Plan Assessment/Plan Additional Assessment/Plan 1. Paroxysmal atrial fibrillation with rapid ventricular response-again of onset overnight. TSH WNL - IN SINUS NOW. 2. Abnormal electrocardiogram with nonspecific ST abnormalities in the setting of tachyarrhythmias.-negative troponin x 3/NL EF by echo this admit 3. Hypotension-NL EF by echom this admit- well Rx. 4. 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 5. History of dysphagia, status post esophageal stent. 6. Anemia. 7. Pneumonia- on anti-Bx, con't Med rx. Consultation Date/Type/Reason Admit Date/Time Jun 19, 2016 at 03:07 Initial Consult Date 06/20/16 Type of Consultation: Hematology Referring Provider: OK LOZANO MD 24 HR Interval Summary Free Text/Dictation No acute events - in sinus now - BP stable. ROS: No fever, no chills, + nausea, + vomiting, no diarrhea/constipation + weight loss No chest pain, no PND, no orthopnea No dizziness, blurred vision No thirst, no heat or cold intolerance Exam/Review of Systems Vital Signs Vitals Vital Signs Date Time Temp Pulse Resp B/P Pulse Ox O2 Delivery O2 Flow Rate FiO2 06/29/16 12:20 65 06/29/16 12:06 22 06/29/16 12:02 98.1 110/68 96 06/29/16 09:32 Nasal Cannula 5.0 06/29/16 01:35 32 Intake and Output 06/28/16 06/28/16 06/29/16 15:00 23:00 07:00 Intake Total 258.5 ml 672 ml 1030 ml Output Total 1900 ml Balance 258.5 ml -1228 ml 1030 ml Exam General: thin/WD/NAD, AOx 3 HEENT: Unicetric/atraumatic/EOMI (follow commands) NECK: JVD elevated, no thyromegaly Lymph: no lymphadenopathy HEART: regular with no S3, II/ systolic murmur at apex LUNGS: Coarse sounds ABD: soft, NT, ND, +BS : Intact Neuro: non focal SKIN: chronic changes EXT: trace edema Results Result Diagram: 06/25/16 0453 Results 24 hrs Laboratory Tests Test 06/28/16 16:59 Arterial Blood HCO3 34.2 H Arterial Blood Base Excess 8.2 H Arterial Blood Oxygen Saturation 92.7 L Rosendo Test ACCEPTAB Arterial Blood Gas Puncture Site Left Radial Arterial Blood Carboxyhemoglobin 0.3 Arterial Blood Date Drawn 06/28/2016 6:13:14 PM Arterial Blood Methemoglobin 0.2 Arterial Blood pCO2 (Temp correct) 55.5 H Arterial Blood pH (Temp corrected) 7.408 Arterial Blood pO2 (Temp corrected) 69.8 L Blood Gas A-a O2 Differential 100.7 H Blood Gas Actual Respiration Rate 23 Blood Gas Modality NASAL CANNULA Blood Gas Notified Time 06/28/2016 6:32:23 PM Blood Gas Notified Whom PUSHPA AKERS Blood Gas Specimen Source Blood arterial Blood Gas Temperature 37.0 FiO2 33.0 Oxyhemoglobin Percent 92.2 L Total Hemoglobin 10.2 L Medications Medications Current Medications Azithromycin (Zithromax 500mg/ NS (Pmx)) 250 ml @ 250 mls/hr Q24H IVPB Last administered on 06/28/16 22:59; Admin Dose 250 MLS/HR; Start 06/19/16 at 22:00 Ondansetron HCl (Zofran Inj) 4 mg Q4H PRN IV NAUSEA AND/OR VOMITING Last administered on 06/28/16 15:42; Admin Dose 4 MG; Start 06/19/16 at 06:30 Pantoprazole (Protonix Iv) 40 mg DAILY@06 IV Last administered on 06/29/16 05: 21; Admin Dose 40 MG; Start 06/20/16 at 06:00 Acetaminophen 650 mg 650 mg Q6H PRN PO PAIN AND OR ELEVATED TEMP; Start at 06:30 Piperacillin Sod/ Tazobactam Sod (Zosyn 3.375gm/ 100 ml (Pmx)) 100 ml @ 200 mls /hr Q6 IVPB Last administered on 06/29/16 12:08; Admin Dose 200 MLS/HR; Start 06/24/16 at 13:30 Furosemide (Lasix) 40 mg DAILY IV Last administered on 06/28/16 09:20; Admin Dose 40 MG; Start 06/24/16 at 13:30; Status Future Hold Hydromorphone HCl (Dilaudid POST OFFICE MARKUP CLERK) 0.2 MG/HR CONTINUOUS R... Q4PCA IV Last administered on 06/29/16 07:32; Admin Dose 6 MG; Start 06/26/16 at 14:00; Status Future hold Trazodone HCl (Desyrel) 25 mg HS PRN PO INSOMNIA Last administered on 06/28/16 22:20; Admin Dose 25 MG; Start 06/26/16 at 14:00 Dexamethasone (Decadron) 6 mg Q6 IV Last administered on 06/29/16 12:07; Admin Dose 6 MG; Start 06/27/16 at 00:00 Guaifenesin (Robitussin Liquid Cup) 200 mg Q4H PRN PO COUGH; Start 06/26/16 at 21:00 Metoprolol Tartrate (Lopressor) 25 mg BID PO Last administered on 06/29/16 07: 42; Admin Dose 25 MG; Start 06/27/16 at 21:00 Metoprolol Tartrate (Lopressor) 5 mg Q4H PRN IV HR>110 Hold SBP<100; Start 06/27 at 13:00 Amiodarone HCl (Cordarone) 200 mg BID PO Last administered on 06/29/16 07:43; Admin Dose 200 MG; Start 06/27/16 at 13:00 Enoxaparin Sodium 40 mg 40 mg Q12 SC Last administered on 06/29/16 07:45; Admin Dose 40 MG; Start 06/28/16 at 21:00 Potassium Chloride/Dextrose/ Sod Cl (D5-1/2ns + KCl 20 Meq) 1,000 ml @ 40 mls/ hr Q24H IV Last administered on 06/28/16 20:16; Admin Dose 40 MLS/HR; Start 06/28/16 at 20:00 AMBREEN NAVARRO MD Jun 29, 2016 14:01
--- NOTE | 2016-06-29 15:25 | CONS ---
Date/Time of Note Date/Time of Note DATE: 06/29/16 TIME: 15:22 Assessment/Plan Assessment/Plan Chief Complaint/Hosp Course Impression 1. Esophageal cancer, spreading into lungs. 2. Pleural effusion, status post thoracocentesis. 3. Cachexia. 4. Dysphagia, secondary to blockage of the stent. 5. Old healed rib fracture. 6. Chronic pain syndrome 7. atrial fibrillation with rapid response and drop in BP Plan continue IVF EGD planned on Friday for possible APC debulking and clearing of blocked stent Agree with hospice care placement for patient Problems: Consultation Date/Type/Reason Admit Date/Time Jun 19, 2016 at 03:07 Initial Consult Date 06/20/16 Type of Consultation: GI Referring Provider: OK LOZANO MD 24 HR Interval Summary Free Text/Dictation +nausea, + vomiting, not tolerating pureed diet Exam/Review of Systems Vital Signs Vitals Vital Signs Date Time Temp Pulse Resp B/P Pulse Ox O2 Delivery O2 Flow Rate FiO2 06/29/16 14:48 76 24 97 Nasal Cannula 3.0 06/29/16 12:02 98.1 110/68 06/29/16 01:35 32 Intake and Output 06/28/16 06/28/16 06/29/16 15:00 23:00 07:00 Intake Total 258.5 ml 672 ml 1030 ml Output Total 1900 ml Balance 258.5 ml -1228 ml 1030 ml Exam Constitutional: alert, oriented Psych: nl mood/affect, no complaints Head: atraumatic, normocephalic Eyes: EOMI, nl conjunctiva, nl lids, nl sclera ENMT: mucosa pink and moist, nl external ears & nose, nl lips & teeth, nl nasal mucosa & septum Neck: non-tender, supple Respiratory: clear to auscultation, normal air movement Cardiovascular: nl pulses, regular rate and rhythm Gastrointestinal: bowel sounds, non-tender, soft Results Result Diagram: 06/25/16 0453 Results 24 hrs Laboratory Tests Test 06/28/16 16:59 Arterial Blood HCO3 34.2 H Arterial Blood Base Excess 8.2 H Arterial Blood Oxygen Saturation 92.7 L Rosendo Test ACCEPTAB Arterial Blood Gas Puncture Site Left Radial Arterial Blood Carboxyhemoglobin 0.3 Arterial Blood Date Drawn 06/28/2016 6:13:14 PM Arterial Blood Methemoglobin 0.2 Arterial Blood pCO2 (Temp correct) 55.5 H Arterial Blood pH (Temp corrected) 7.408 Arterial Blood pO2 (Temp corrected) 69.8 L Blood Gas A-a O2 Differential 100.7 H Blood Gas Actual Respiration Rate 23 Blood Gas Modality NASAL CANNULA Blood Gas Notified Time 06/28/2016 6:32:23 PM Blood Gas Notified Whom PUSHPA RT Blood Gas Specimen Source Blood arterial Blood Gas Temperature 37.0 FiO2 33.0 Oxyhemoglobin Percent 92.2 L Total Hemoglobin 10.2 L Medications Medications Current Medications Azithromycin (Zithromax 500mg/ NS (Pmx)) 250 ml @ 250 mls/hr Q24H IVPB Last administered on 06/28/16 22:59; Admin Dose 250 MLS/HR; Start 06/19/16 at 22:00 Ondansetron HCl (Zofran Inj) 4 mg Q4H PRN IV NAUSEA AND/OR VOMITING Last administered on 06/28/16 15:42; Admin Dose 4 MG; Start 06/19/16 at 06:30 Pantoprazole (Protonix Iv) 40 mg DAILY@06 IV Last administered on 06/29/16 05: 21; Admin Dose 40 MG; Start 06/20/16 at 06:00 Acetaminophen 650 mg 650 mg Q6H PRN PO PAIN AND OR ELEVATED TEMP; Start at 06:30 Piperacillin Sod/ Tazobactam Sod (Zosyn 3.375gm/ 100 ml (Pmx)) 100 ml @ 200 mls /hr Q6 IVPB Last administered on 06/29/16 12:08; Admin Dose 200 MLS/HR; Start 06/24/16 at 13:30 Furosemide (Lasix) 40 mg DAILY IV Last administered on 06/28/16 09:20; Admin Dose 40 MG; Start 06/24/16 at 13:30; Status Future Hold Hydromorphone HCl (Dilaudid DUMPER MOLD CLEANER) 0.2 MG/HR CONTINUOUS R... Q4PCA IV Last administered on 06/29/16 15:14; Admin Dose 6 MG; Start 06/26/16 at 14:00; Status Future hold Trazodone HCl (Desyrel) 25 mg HS PRN PO INSOMNIA Last administered on 06/28/16 22:20; Admin Dose 25 MG; Start 06/26/16 at 14:00 Dexamethasone (Decadron) 6 mg Q6 IV Last administered on 06/29/16 12:07; Admin Dose 6 MG; Start 06/27/16 at 00:00 Guaifenesin (Robitussin Liquid Cup) 200 mg Q4H PRN PO COUGH; Start 06/26/16 at 21:00 Metoprolol Tartrate (Lopressor) 25 mg BID PO Last administered on 06/29/16 07: 42; Admin Dose 25 MG; Start 06/27/16 at 21:00 Metoprolol Tartrate (Lopressor) 5 mg Q4H PRN IV HR>110 Hold SBP<100; Start 06/27 at 13:00 Amiodarone HCl (Cordarone) 200 mg BID PO Last administered on 06/29/16 07:43; Admin Dose 200 MG; Start 06/27/16 at 13:00 Enoxaparin Sodium 40 mg 40 mg Q12 SC Last administered on 06/29/16 07:45; Admin Dose 40 MG; Start 06/28/16 at 21:00 Potassium Chloride/Dextrose/ Sod Cl (D5-1/2ns + KCl 20 Meq) 1,000 ml @ 40 mls/ hr Q24H IV Last administered on 06/28/16 20:16; Admin Dose 40 MLS/HR; Start 06/28/16 at 20:00 MERT BARROS MD Jun 29, 2016 15:25
--- NOTE | 2016-06-29 16:05 | CONS ---
Date/Time of Note Date/Time of Note DATE: 06/29/16 TIME: 16:01 Consult Date/Type/Reason Admit Date/Time Jun 19, 2016 at 03:07 Initial Consult Date 06/20/16 Type of Consultation: pulm Ordering Provider: OK LOZANO MD Subjective No events. Objective Vital Signs Date Time Temp Pulse Resp B/P Pulse Ox O2 Delivery O2 Flow Rate FiO2 06/29/16 14:48 76 24 97 Nasal Cannula 3.0 06/29/16 12:02 98.1 110/68 06/29/16 01:35 32 Intake and Output 06/28/16 06/28/16 06/29/16 15:00 23:00 07:00 Intake Total 258.5 ml 672 ml 1030 ml Output Total 1900 ml Balance 258.5 ml -1228 ml 1030 ml NECK: Supple. No JVD or lymphadenopathy. CARDIAC: S1, S2, no added sounds or murmurs. CHEST: Diminished air entry bilaterally with occ rhonchi ABDOMEN: Soft, nontender. No guarding or rebound. EXTREMITIES: No cyanosis, clubbing. Results/Medications Result Diagram: 06/25/16 0453 Results 24 hrs Laboratory Tests Test 06/28/16 16:59 Arterial Blood HCO3 34.2 H Arterial Blood Base Excess 8.2 H Arterial Blood Oxygen Saturation 92.7 L Rosendo Test ACCEPTAB Arterial Blood Gas Puncture Site Left Radial Arterial Blood Carboxyhemoglobin 0.3 Arterial Blood Date Drawn 06/28/2016 6:13:14 PM Arterial Blood Methemoglobin 0.2 Arterial Blood pCO2 (Temp correct) 55.5 H Arterial Blood pH (Temp corrected) 7.408 Arterial Blood pO2 (Temp corrected) 69.8 L Blood Gas A-a O2 Differential 100.7 H Blood Gas Actual Respiration Rate 23 Blood Gas Modality NASAL CANNULA Blood Gas Notified Time 06/28/2016 6:32:23 PM Blood Gas Notified Whom PUSHPA AKERS Blood Gas Specimen Source Blood arterial Blood Gas Temperature 37.0 FiO2 33.0 Oxyhemoglobin Percent 92.2 L Total Hemoglobin 10.2 L Medications Current Medications Azithromycin (Zithromax 500mg/ NS (Pmx)) 250 ml @ 250 mls/hr Q24H IVPB Last administered on 06/28/16t 22:59; Admin Dose 250 MLS/HR; Start 12/28/16 at 22:00 Ondansetron HCl (Zofran Inj) 4 mg Q4H PRN IV NAUSEA AND/OR VOMITING Last administered on 06/28/16 15:42; Admin Dose 4 MG; Start 06/19/16 at 06:30 Pantoprazole (Protonix Iv) 40 mg DAILY@06 IV Last administered on 06/29/16 05: 21; Admin Dose 40 MG; Start 06/20/16 at 06:00 Acetaminophen 650 mg 650 mg Q6H PRN PO PAIN AND OR ELEVATED TEMP; Start at 06:30 Piperacillin Sod/ Tazobactam Sod (Zosyn 3.375gm/ 100 ml (Pmx)) 100 ml @ 200 mls /hr Q6 IVPB Last administered on 06/29/16 12:08; Admin Dose 200 MLS/HR; Start 06/24/16 at 13:30 Furosemide (Lasix) 40 mg DAILY IV Last administered on 06/28/16 09:20; Admin Dose 40 MG; Start 06/24/16 at 13:30; Status Future Hold Hydromorphone HCl (Dilaudid FIELD LABORER) 0.2 MG/HR CONTINUOUS R... Q4PCA IV Last administered on 06/29/16 15:14; Admin Dose 6 MG; Start 06/26/16 at 14:00; Status Future hold Trazodone HCl (Desyrel) 25 mg HS PRN PO INSOMNIA Last administered on 06/28/16 22:20; Admin Dose 25 MG; Start 06/26/16 at 14:00 Dexamethasone (Decadron) 6 mg Q6 IV Last administered on 06/29/16 12:07; Admin Dose 6 MG; Start 06/27/16 at 00:00 Guaifenesin (Robitussin Liquid Cup) 200 mg Q4H PRN PO COUGH; Start 06/26/16 at 21:00 Metoprolol Tartrate (Lopressor) 25 mg BID PO Last administered on 06/29/16 07: 42; Admin Dose 25 MG; Start 06/27/16 at 21:00 Metoprolol Tartrate (Lopressor) 5 mg Q4H PRN IV HR>110 Hold SBP<100; Start 06/27 at 13:00 Amiodarone HCl (Cordarone) 200 mg BID PO Last administered on 06/29/16 07:43; Admin Dose 200 MG; Start 06/27/16 at 13:00 Enoxaparin Sodium 40 mg 40 mg Q12 SC Last administered on 06/29/16 07:45; Admin Dose 40 MG; Start 06/28/16 at 21:00 Potassium Chloride/Dextrose/ Sod Cl (D5-1/2ns + KCl 20 Meq) 1,000 ml @ 40 mls/ hr Q24H IV Last administered on 06/28/16 20:16; Admin Dose 40 MLS/HR; Start 06/28/16 at 20:00 Assessment/Plan Additional Assessment/Plan IMPRESSION: 1. Esophageal tumor with evidence of metastatic spread. Extensive mediastinal mass s/p esophageal stent 2. Possible primary lung cancer. However unlikely 3. Recent thoracentesis with pleural fluid studies, cytology negative for malignancy RECS: 1. Pulm toilet. BDs, lasix 2. Aspiration precautions 3. Discussed with palliative care overall prognosis is very poor/ ROBERT ADAIR MD Jun 29, 2016 16:05
[2016-06-29] MEDS: D5W-0.45 NACL + KCL 20 MEQ 1,000 ML IV SCH (20:00)
[2016-06-29] MEDS: ALBUTEROL/IPRATROPIUM (NEB) 3 ML AMP HHN SCH (20:47)
[2016-06-29] MEDS: AZITHROMYCIN 500MG/NS (PMX) 250 ML IVPB SCH (21:50)
[2016-06-29] MEDS: traZODone 50 MG TAB PO PRN (22:14)
[2016-06-29] MEDS: ONDANSETRON 4 MG INJ IV PRN (23:32)
[2016-06-30] VITALS (12 sets, daily range): BP systolic 131–174; BP diastolic 67–89; PULSE 74–92; RESP 20–26
[2016-06-30] MEDS: HYDROmorphONE 0.2 MG/ML PCA IV SCH ×3 (00:46→23:47)
[2016-06-30] MEDS: ALBUTEROL/IPRATROPIUM (NEB) 3 ML AMP HHN PRN ×4 (01:42→22:44)
[2016-06-30] MEDS: D5W-0.45 NACL + KCL 20 MEQ 1,000 ML IV SCH ×2 (02:55→20:00)
[2016-06-30] MEDS: PANTOPRAZOLE 40 MG INJ IV SCH (06:09)
[2016-06-30] MEDS: DEXAMETHASONE 4 MG/ML 1 ML INJ IV SCH ×3 (06:09→17:30)
[2016-06-30] MEDS: PIPER-TAZO 3.375 GM IV (PMX) 100 ML IVPB SCH ×3 (06:09→17:30)
[2016-06-30] MEDS: AMIODARONE 200 MG TAB PO SCH ×2 (08:37→20:39)
[2016-06-30] MEDS: METOPROLOL 25 MG TAB PO SCH ×2 (08:38→20:39)
[2016-06-30] MEDS: ENOXAPARIN 40 MG/0.4 ML SYG SC SCH ×2 (08:41→20:36)
[2016-06-30] MEDS: ALBUTEROL/IPRATROPIUM (NEB) 3 ML AMP HHN SCH ×3 (08:45→19:54)
--- NOTE | 2016-06-30 11:44 | CONS ---
Date/Time of Note Date/Time of Note DATE: 06/30/16 TIME: 11:42 Assessment/Plan Assessment/Plan Chief Complaint/Hosp Course Impression 1. Esophageal cancer, spreading into lungs. 2. Pleural effusion, status post thoracocentesis. 3. Cachexia. 4. Dysphagia, secondary to blockage of the stent. 5. Old healed rib fracture. 6. Chronic pain syndrome 7. atrial fibrillation with rapid response and drop in BP Plan continue IVF EGD planned on Friday for possible APC debulking and clearing of blocked stent Agree with hospice care placement for patient Dr. Barron to resume care of this patient tomorrow. Problems: Consultation Date/Type/Reason Admit Date/Time Jun 19, 2016 at 03:07 Initial Consult Date 06/20/16 Type of Consultation: GI Referring Provider: OK LOZANO MD 24 HR Interval Summary Free Text/Dictation still has persistent nausea, mild abdominal pain. Constitutional: improved Exam/Review of Systems Vital Signs Vitals Vital Signs Date Time Temp Pulse Resp B/P Pulse Ox O2 Delivery O2 Flow Rate FiO2 06/30/16 10:38 Nasal Cannula 3.0 06/30/16 09:35 100 28 93 06/30/16 08:05 98.4 131/82 06/30/16 05:23 28 Intake and Output 06/29/16 06/29/16 06/30/16 15:00 23:00 07:00 Intake Total 400 ml 1060 ml Balance 400 ml 1060 ml Exam Constitutional: alert, oriented, well developed Psych: nl mood/affect, no complaints Head: atraumatic, normocephalic Eyes: EOMI, nl conjunctiva, nl lids, nl sclera ENMT: mucosa pink and moist, nl external ears & nose, nl lips & teeth, nl nasal mucosa & septum Neck: non-tender, supple Respiratory: clear to auscultation, normal air movement Cardiovascular: nl pulses, regular rate and rhythm Gastrointestinal: bowel sounds, non-tender, soft Medications Medications Current Medications Azithromycin (Zithromax 500mg/ NS (Pmx)) 250 ml @ 250 mls/hr Q24H IVPB Last administered on 06/29/16t 21:50; Admin Dose 250 MLS/HR; Start 06/19/16 at 22:00 Ondansetron HCl (Zofran Inj) 4 mg Q4H PRN IV NAUSEA AND/OR VOMITING Last administered on 06/29/16 23:32; Admin Dose 4 MG; Start 06/19/16 at 06:30 Pantoprazole (Protonix Iv) 40 mg DAILY@06 IV Last administered on 06/30/16 06: 09; Admin Dose 40 MG; Start 06/20/16 at 06:00 Acetaminophen 650 mg 650 mg Q6H PRN PO PAIN AND OR ELEVATED TEMP; Start at 06:30 Piperacillin Sod/ Tazobactam Sod (Zosyn 3.375gm/ 100 ml (Pmx)) 100 ml @ 200 mls /hr Q6 IVPB Last administered on 06/30/16 06:09; Admin Dose 200 MLS/HR; Start 06/24/16 at 13:30 Furosemide (Lasix) 40 mg DAILY IV Last administered on 06/28/16 09:20; Admin Dose 40 MG; Start 06/24/16 at 13:30; Status Future Hold Hydromorphone HCl (Dilaudid PRACTICAL NURSING FACULTY) 0.2 MG/HR CONTINUOUS R... Q4PCA IV Last administered on 06/30/16 00:46; Admin Dose 6 MG; Start 06/26/16 at 14:00; Status Future hold Trazodone HCl (Desyrel) 25 mg HS PRN PO INSOMNIA Last administered on 06/29/16 22:14; Admin Dose 25 MG; Start 06/26/16 at 14:00 Dexamethasone (Decadron) 6 mg Q6 IV Last administered on 06/30/16 06:09; Admin Dose 6 MG; Start 06/27/16 at 00:00 Guaifenesin (Robitussin Liquid Cup) 200 mg Q4H PRN PO COUGH; Start 06/26/16 at 21:00 Metoprolol Tartrate (Lopressor) 25 mg BID PO Last administered on 06/30/16 08: 38; Admin Dose 25 MG; Start 06/27/16 at 21:00 Metoprolol Tartrate (Lopressor) 5 mg Q4H PRN IV HR>110 Hold SBP<100; Start 06/27 at 13:00 Amiodarone HCl (Cordarone) 200 mg BID PO Last administered on 06/30/16 08:37; Admin Dose 200 MG; Start 06/27/16 at 13:00 Enoxaparin Sodium 40 mg 40 mg Q12 SC Last administered on 06/30/16 08:41; Admin Dose 40 MG; Start 06/28/16 at 21:00 Potassium Chloride/Dextrose/ Sod Cl (D5-1/2ns + KCl 20 Meq) 1,000 ml @ 40 mls/ hr Q24H IV Last administered on 06/30/16 02:55; Admin Dose 40 MLS/HR; Start 06/28/16 at 20:00 MERT BARROS MD Jun 30, 2016 11:43
--- NOTE | 2016-06-30 11:47 | PN ---
Date/Time of Note Date/Time of Note DATE: 06/30/16 TIME: 11:45 Assessment/Plan VTE Prophylaxis VTE Prophylaxis Intervention: SCD's Lines/Catheters IV Catheter Type (from Nrs): Peripheral IV Urinary Cath still in place: No Assessment/Plan Assessment/Plan 1. Lung infiltrate./pleural effusion s/p thoracentesis/lung mass 2. The patient has res insufficiency. 3. History of stent placement. 4. History of dyspepsia. 5. History of peptic ulcer disease. 6. History of anemia. 7. History of blood transfusion. 8. History of chemotherapy. 9. History of Port-A-Cath placement. 10. History of multiple episodes of possible aspiration pneumonia. 11 lung mass poss mets Plan: pt agreed for hospice care, evaluated pt but jennifer has not spoke with any hospice care meanwhile I ordered a case management consult for SNF placement with Hospice care IVF Pain meds Subjective 24 Hr Interval Summary Free Text/Dictation pt is DNR, lethargic today, awaiting final decision on hospice Exam/Review of Systems Vital Signs Vitals Vital Signs Date Time Temp Pulse Resp B/P Pulse Ox O2 Delivery O2 Flow Rate FiO2 06/30/16 10:38 Nasal Cannula 3.0 06/30/16 09:35 100 28 93 06/30/16 08:05 98.4 131/82 06/30/16 05:23 28 Intake and Output 06/29/16 06/29/16 06/30/16 15:00 23:00 07:00 Intake Total 400 ml 1060 ml Balance 400 ml 1060 ml Exam Constitutional: lethargic,frail ENMT: nl external ears & nose Neck: non-tender, supple Respiratory: crackles/rales, diminished breath sounds, labored breathing Cardiovascular: other (afib) Musculoskeletal: nl extremities to inspection Medications Medications Current Medications Azithromycin (Zithromax 500mg/ NS (Pmx)) 250 ml @ 250 mls/hr Q24H IVPB Last administered on 06/29/16 21:50; Admin Dose 250 MLS/HR; Start 06/19/16 at 22:00 Ondansetron HCl (Zofran Inj) 4 mg Q4H PRN IV NAUSEA AND/OR VOMITING Last administered on 06/29/16 23:32; Admin Dose 4 MG; Start 06/19/16 at 06:30 Pantoprazole (Protonix Iv) 40 mg DAILY@06 IV Last administered on 06/30/16 06: 09; Admin Dose 40 MG; Start 06/20/16 at 06:00 Acetaminophen 650 mg 650 mg Q6H PRN PO PAIN AND OR ELEVATED TEMP; Start at 06:30 Piperacillin Sod/ Tazobactam Sod (Zosyn 3.375gm/ 100 ml (Pmx)) 100 ml @ 200 mls /hr Q6 IVPB Last administered on 06/30/16 06:09; Admin Dose 200 MLS/HR; Start 06/24/16 at 13:30 Furosemide (Lasix) 40 mg DAILY IV Last administered on 06/28/16 09:20; Admin Dose 40 MG; Start 06/24/16 at 13:30; Status Future Hold Hydromorphone HCl (Dilaudid WEDDING PHOTOGRAPHER) 0.2 MG/HR CONTINUOUS R... Q4PCA IV Last administered on 06/30/16 00:46; Admin Dose 6 MG; Start 06/26/16 at 14:00; Status Future hold Trazodone HCl (Desyrel) 25 mg HS PRN PO INSOMNIA Last administered on 06/29/16 22:14; Admin Dose 25 MG; Start 06/26/16 at 14:00 Dexamethasone (Decadron) 6 mg Q6 IV Last administered on 06/30/16 06:09; Admin Dose 6 MG; Start 06/27/16 at 00:00 Guaifenesin (Robitussin Liquid Cup) 200 mg Q4H PRN PO COUGH; Start 06/26/16 at 21:00 Metoprolol Tartrate (Lopressor) 25 mg BID PO Last administered on 06/30/16 08: 38; Admin Dose 25 MG; Start 06/27/16 at 21:00 Metoprolol Tartrate (Lopressor) 5 mg Q4H PRN IV HR>110 Hold SBP<100; Start 06/27 at 13:00 Amiodarone HCl (Cordarone) 200 mg BID PO Last administered on 06/30/16 08:37; Admin Dose 200 MG; Start 06/27/16 at 13:00 Enoxaparin Sodium 40 mg 40 mg Q12 SC Last administered on 06/30/16 08:41; Admin Dose 40 MG; Start 06/28/16 at 21:00 Potassium Chloride/Dextrose/ Sod Cl (D5-1/2ns + KCl 20 Meq) 1,000 ml @ 40 mls/ hr Q24H IV Last administered on 06/30/16t 02:55; Admin Dose 40 MLS/HR; Start 06/28/16 at 20:00 HECTOR WINSTON MD Jun 30, 2016 11:46
--- NOTE | 2016-06-30 14:08 | CONS ---
Date/Time of Note Date/Time of Note DATE: 06/30/16 TIME: 14:06 Assessment/Plan Assessment/Plan Additional Assessment/Plan 1. Paroxysmal atrial fibrillation with rapid ventricular response-again of onset overnight. TSH WNL - IN SINUS NOW. Sinus tach at times - stable. 2. Abnormal electrocardiogram with nonspecific ST abnormalities in the setting of tachyarrhythmias.-negative troponin x 3/NL EF by echo this admit 3. Hypotension-NL EF by echom this admit- well Rx. WEll rx now. 4. 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 5. History of dysphagia, status post esophageal stent. 6. Anemia- no signs of bleeding. 7. Pneumonia- on anti-Bx, con't Med rx. Consultation Date/Type/Reason Admit Date/Time Jun 19, 2016 at 03:07 Initial Consult Date 06/20/16 Type of Consultation: GI Referring Provider: OK LOZANO MD 24 HR Interval Summary Free Text/Dictation NO acute change. BP stable - simus now. ROS: No fever, no chills, no nausea, no vomiting, no diarrhea/constipation + weight loss No chest pain, no PND, no orthopnea No dizziness, blurred vision No thirst, no heat or cold intolerance Exam/Review of Systems Vital Signs Vitals Vital Signs Date Time Temp Pulse Resp B/P Pulse Ox O2 Delivery O2 Flow Rate FiO2 06/30/16 13:00 83 28 Nasal Cannula 6.0 06/30/16 12:14 98.5 138/71 92 06/30/16 05:23 28 Intake and Output 06/29/16 06/29/16 06/30/16 15:00 23:00 07:00 Intake Total 400 ml 1060 ml Balance 400 ml 1060 ml Exam General: thin/WD/NAD, AOx 2-3 HEENT: Unicetric/atraumatic/EOMI (follows commands) NECK: JVD elevated, no thyromegaly Lymph: no lymphadenopathy HEART: regular with no S3, II/ systolic murmur at apex LUNGS: Coarse sounds ABD: soft, NT, ND, +BS : Intact Neuro: non focal SKIN: chronic changes EXT: trace edema Medications Medications Current Medications Azithromycin (Zithromax 500mg/ NS (Pmx)) 250 ml @ 250 mls/hr Q24H IVPB Last administered on 06/29/16 21:50; Admin Dose 250 MLS/HR; Start 06/19/16 at 22:00 Ondansetron HCl (Zofran Inj) 4 mg Q4H PRN IV NAUSEA AND/OR VOMITING Last administered on 06/29/16 23:32; Admin Dose 4 MG; Start 06/19/16 at 06:30 Pantoprazole (Protonix Iv) 40 mg DAILY@06 IV Last administered on 06/30/16 06: 09; Admin Dose 40 MG; Start 06/20/16 at 06:00 Acetaminophen 650 mg 650 mg Q6H PRN PO PAIN AND OR ELEVATED TEMP; Start at 06:30 Piperacillin Sod/ Tazobactam Sod (Zosyn 3.375gm/ 100 ml (Pmx)) 100 ml @ 200 mls /hr Q6 IVPB Last administered on 06/30/16 11:54; Admin Dose 200 MLS/HR; Start 06/24/16 at 13:30 Furosemide (Lasix) 40 mg DAILY IV Last administered on 06/28/16 09:20; Admin Dose 40 MG; Start 06/24/16 at 13:30; Status Future Hold Hydromorphone HCl (Dilaudid CAP PARTS CUTTER) 0.2 MG/HR CONTINUOUS R... Q4PCA IV Last administered on 06/30/16 11:53; Admin Dose 6 MG; Start 06/26/16 at 14:00; Status Future hold Trazodone HCl (Desyrel) 25 mg HS PRN PO INSOMNIA Last administered on 06/29/16 22:14; Admin Dose 25 MG; Start 06/26/16 at 14:00 Dexamethasone (Decadron) 6 mg Q6 IV Last administered on 06/30/16 11:56; Admin Dose 6 MG; Start 06/27/16 at 00:00 Guaifenesin (Robitussin Liquid Cup) 200 mg Q4H PRN PO COUGH; Start 06/26/16 at 21:00 Metoprolol Tartrate (Lopressor) 25 mg BID PO Last administered on 06/30/16 08: 38; Admin Dose 25 MG; Start 06/27/16 at 21:00 Metoprolol Tartrate (Lopressor) 5 mg Q4H PRN IV HR>110 Hold SBP<100; Start 06/27 at 13:00 Amiodarone HCl (Cordarone) 200 mg BID PO Last administered on 06/30/16 08:37; Admin Dose 200 MG; Start 06/27/16 at 13:00 Enoxaparin Sodium 40 mg 40 mg Q12 SC Last administered on 06/30/16 08:41; Admin Dose 40 MG; Start 06/28/16 at 21:00 Potassium Chloride/Dextrose/ Sod Cl (D5-1/2ns + KCl 20 Meq) 1,000 ml @ 40 mls/ hr Q24H IV Last administered on 06/30/16 02:55; Admin Dose 40 MLS/HR; Start 06/28/16 at 20:00 AMBREEN NAVARRO MD Jun 30, 2016 14:08
--- NOTE | 2016-06-30 17:34 | CONS ---
Date/Time of Note Date/Time of Note DATE: 06/30/16 TIME: 17:33 Consult Date/Type/Reason Admit Date/Time Jun 19, 2016 at 03:07 Initial Consult Date 06/20/16 Type of Consultation: Pulm Ordering Provider: OK LOZANO MD Subjective Overall doing poorly. Increased oxygen requirements. Refusing oxygen via FM Objective Vital Signs Date Time Temp Pulse Resp B/P Pulse Ox O2 Delivery O2 Flow Rate FiO2 06/30/16 17:05 Nasal Cannula 8.0 06/30/16 16:12 91 06/30/16 15:54 97.9 20 164/86 97 06/30/16 05:23 28 Intake and Output 06/29/16 06/29/16 06/30/16 15:00 23:00 07:00 Intake Total 400 ml 1060 ml Balance 400 ml 1060 ml NECK: Supple. No JVD or lymphadenopathy. CARDIAC: S1, S2, no added sounds or murmurs. CHEST: Diminished air entry bilaterally with occ rhonchi ABDOMEN: Soft, nontender. No guarding or rebound. EXTREMITIES: No cyanosis, clubbing. Results/Medications Medications Current Medications Azithromycin (Zithromax 500mg/ NS (Pmx)) 250 ml @ 250 mls/hr Q24H IVPB Last administered on 06/29/16 21:50; Admin Dose 250 MLS/HR; Start 06/19/16 at 22:00 Ondansetron HCl (Zofran Inj) 4 mg Q4H PRN IV NAUSEA AND/OR VOMITING Last administered on 06/29/16 23:32; Admin Dose 4 MG; Start 06/19/16 at 06:30 Pantoprazole (Protonix Iv) 40 mg DAILY@06 IV Last administered on 06/30/16 06: 09; Admin Dose 40 MG; Start 06/20/16 at 06:00 Acetaminophen 650 mg 650 mg Q6H PRN PO PAIN AND OR ELEVATED TEMP; Start at 06:30 Piperacillin Sod/ Tazobactam Sod (Zosyn 3.375gm/ 100 ml (Pmx)) 100 ml @ 200 mls /hr Q6 IVPB Last administered on 06/30/16 17:30; Admin Dose 200 MLS/HR; Start 06/24/16 at 13:30 Furosemide (Lasix) 40 mg DAILY IV Last administered on 06/28/16 09:20; Admin Dose 40 MG; Start 06/24/16 at 13:30; Status Future Hold Hydromorphone HCl (Dilaudid FIRE CLAIMS ADJUSTER) 0.2 MG/HR CONTINUOUS R... Q4PCA IV Last administered on 06/30/16 11:53; Admin Dose 6 MG; Start 06/26/16 at 14:00; Status Future hold Trazodone HCl (Desyrel) 25 mg HS PRN PO INSOMNIA Last administered on 06/29/16 22:14; Admin Dose 25 MG; Start 06/26/16 at 14:00 Dexamethasone (Decadron) 6 mg Q6 IV Last administered on 06/30/16 17:30; Admin Dose 6 MG; Start 06/27/16 at 00:00 Guaifenesin (Robitussin Liquid Cup) 200 mg Q4H PRN PO COUGH; Start 06/26/16 at 21:00 Metoprolol Tartrate (Lopressor) 25 mg BID PO Last administered on 06/30/16 08: 38; Admin Dose 25 MG; Start 06/27/16 at 21:00 Metoprolol Tartrate (Lopressor) 5 mg Q4H PRN IV HR>110 Hold SBP<100; Start 06/27 at 13:00 Amiodarone HCl (Cordarone) 200 mg BID PO Last administered on 06/30/16 08:37; Admin Dose 200 MG; Start 06/27/16 at 13:00 Enoxaparin Sodium 40 mg 40 mg Q12 SC Last administered on 06/30/16 08:41; Admin Dose 40 MG; Start 06/28/16 at 21:00 Potassium Chloride/Dextrose/ Sod Cl (D5-1/2ns + KCl 20 Meq) 1,000 ml @ 40 mls/ hr Q24H IV Last administered on 06/30/16 02:55; Admin Dose 40 MLS/HR; Start 06/28/16 at 20:00 Assessment/Plan Additional Assessment/Plan IMPRESSION: 1. Esophageal tumor with evidence of metastatic spread. Extensive mediastinal mass s/p esophageal stent 2. Possible primary lung cancer. However unlikely 3. Recent thoracentesis with pleural fluid studies, cytology negative for malignancy RECS: 1. Pulm toilet. BDs, lasix 2. Aspiration precautions 3. Oxygen via high flow NC--> d/w RT 4. Palliative consult ROBERT ADAIR MD Jun 30, 2016 17:34
[2016-06-30] MEDS: AZITHROMYCIN 500MG/NS (PMX) 250 ML IVPB SCH (22:22)
[2016-07-01] VITALS (12 sets, daily range): BP systolic 79–154; BP diastolic 49–88; PULSE 74–144; RESP 14–28
[2016-07-01] MEDS: ALBUTEROL/IPRATROPIUM (NEB) 3 ML AMP HHN PRN ×3 (00:30→04:02)
[2016-07-01] MEDS: DEXAMETHASONE 4 MG/ML 1 ML INJ IV SCH ×3 (00:49→13:00)
[2016-07-01] MEDS: PIPER-TAZO 3.375 GM IV (PMX) 100 ML IVPB SCH ×3 (00:49→13:00)
[2016-07-01] MEDS: PANTOPRAZOLE 40 MG INJ IV SCH (05:52)
[2016-07-01] MEDS: D5W-0.45 NACL + KCL 20 MEQ 1,000 ML IV SCH (05:52)
[2016-07-01 06:49] LABS: INR 1.25; PROTIME 15.8 Sec (12.2-14.2); PT RATIO 1.2
[2016-07-01 06:50] LABS: PARTIAL THROMBOPLASTIN TIME 29.5 Sec (25.0-35.0)
[2016-07-01 07:00] LABS: HEMATOCRIT 29.7 % (37.0-47.0); HEMOGLOBIN 9.1 g/dl (12.0-16.0); MEAN CORPUSCULAR HEMOGLOBIN 25.9 pg (29.0-33.0); MEAN CORPUSCULAR HGB CONC 30.8 g/dl (32.0-37.0); MEAN CORPUSCULAR VOLUME 84.3 fl (82.0-101.0); MEAN PLATELET VOLUME 6.8 fl (7.4-10.4); PLATELET COUNT 666 10^3/UL (140-440); RED BLOOD COUNT 3.52 10^6/ul (4.20-5.40); RED CELL DISTRIBUTION WIDTH 17.2 % (11.5-14.5); UNCORRECTED WBC 23.2 10^3/ul (4.8-10.8); WHITE BLOOD COUNT 23.2 10^3/ul (4.8-10.8)
[2016-07-01 07:03] LABS: CONDITION 1; LH ANALYZER COMMENTS 1; SUSPECT 1
[2016-07-01] MEDS: ALBUTEROL/IPRATROPIUM (NEB) 3 ML AMP HHN SCH (08:00)
[2016-07-01] MEDS: METOPROLOL 25 MG TAB PO SCH (09:00)
[2016-07-01] MEDS: AMIODARONE 200 MG TAB PO SCH (09:00)
[2016-07-01] MEDS ORDERED: LORAZEPAM 2 MG INJ IV PRN ×2 (09:30→13:00)
[2016-07-01] MEDS: ENOXAPARIN 40 MG/0.4 ML SYG SC SCH (10:10)
[2016-07-01 10:56] LABS: LYMPHOCYTES # 0.2 10^3/ul (0.8-2.9); MONOCYTE # 0.7 10^3/ul (0.3-0.9)
--- NOTE | 2016-07-01 11:25 | CONS ---
Date/Time of Note Date/Time of Note DATE: 07/01/16 TIME: 11:22 Assessment/Plan Assessment/Plan Chief Complaint/Hosp Course IMPRESSION: 1. Paroxysmal atrial fibrillation with rapid ventricular response-Now again in SR. TSH WNL 2. Abnormal electrocardiogram with nonspecific ST abnormalities in the setting of tachyarrhythmias.-negative troponin x 3/NL EF by echo this admit 3. Hypotension-NL EF by echom this admit 4. 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 5. History of dysphagia, status post esophageal stent. 6. Anemia. 7. Pneumonia. Recc: -Tele -serial ecg's -Continue po amio -Will give IVP digoxin -Continue abx's and f/u cx data -Continue lovenox/asa and follow hgb closely -Continue steroids/bronchodilators -Now on dilaudid pump -poor prognosis Problems: Consultation Date/Type/Reason Admit Date/Time Jun 19, 2016 at 03:07 Initial Consult Date 06/20/16 Type of Consultation: Cardiology Reason for Consultation PAF Referring Provider: OK LOZANO MD Exam/Review of Systems Vital Signs Vitals Vital Signs Date Time Temp Pulse Resp B/P Pulse Ox O2 Delivery O2 Flow Rate FiO2 07/01/16 08:35 91 07/01/16 08:06 97.7 20 123/74 92 07/01/16 08:00 Nasal Cannula 8.0 06/30/16 05:23 28 Intake and Output 06/30/16 06/30/16 07/01/16 15:00 23:00 07:00 Intake Total 100 ml 240 ml 350 ml Balance 100 ml 240 ml 350 ml Exam Review of Systems: CONSTITUTIONAL: No fevers, chills. PULMONARY: Face mask in place CARDIOVASCULAR: No chest pain/palpitations GASTROINTESTINAL: No nausea/vomiting. GENITOURINARY: No hematuria/dysuria. MUSCULOSKELETAL: No myagias/arthalgias. PSYCHIATRIC: The patient denies depression. NEUROLOGIC: No weakness Constitutional: other (sleeping) Psych: no complaints Head: normocephalic ENMT: mucosa pink and moist Neck: jvd (8 cm water), supple Respiratory: diminished breath sounds (at bases/B) Cardiovascular: regular rate and rhythm Gastrointestinal: non-tender, soft Musculoskeletal: muscle tone Extremities: edema (trace) Neurological: lethargic Results Result Diagram: 07/01/16 0542 Results 24 hrs Laboratory Tests Test 07/01/16 05:42 Activated Partial Thromboplast Time 29.5 Band Neutrophils % 1.0 Basophils # Basophils % Blood Morphology Comment Differential Comment MANUAL DIFF Eosinophils # Eosinophils % Hematocrit 29.7 L Hemoglobin 9.1 L INR International Normalized Ratio 1.25 Lymphocytes # 0.2 L Lymphocytes % 1.0 L Mean Corpuscular Hemoglobin 25.9 L Mean Corpuscular Hemoglobin Concent 30.8 L Mean Corpuscular Volume 84.3 Mean Platelet Volume 6.8 L Monocytes # 0.7 Monocytes % 3.0 Neutrophils # 22.0 H Neutrophils % 95.0 H Nucleated Red Blood Cells # Nucleated Red Blood Cells % Platelet Count 666 H Prothrombin Time 15.8 H Prothrombin Time Ratio 1.2 Red Blood Count 3.52 L Red Cell Distribution Width 17.2 H White Blood Count 23.2 #H Medications Medications Current Medications Azithromycin (Zithromax 500mg/ NS (Pmx)) 250 ml @ 250 mls/hr Q24H IVPB Last administered on 06/30/16 22:22; Admin Dose 250 MLS/HR; Start 06/19/16 at 22:00 Ondansetron HCl (Zofran Inj) 4 mg Q4H PRN IV NAUSEA AND/OR VOMITING Last administered on 06/29/16 23:32; Admin Dose 4 MG; Start 06/19/16 at 06:30 Pantoprazole (Protonix Iv) 40 mg DAILY@06 IV Last administered on 07/01/16 05: 52; Admin Dose 40 MG; Start 06/20/16 at 06:00 Acetaminophen 650 mg 650 mg Q6H PRN PO PAIN AND OR ELEVATED TEMP; Start at 06:30 Piperacillin Sod/ Tazobactam Sod (Zosyn 3.375gm/ 100 ml (Pmx)) 100 ml @ 200 mls /hr Q6 IVPB Last administered on 07/01/16 05:53; Admin Dose 200 MLS/HR; Start 06/24/16 at 13:30 Furosemide (Lasix) 40 mg DAILY IV Last administered on 06/28/16 09:20; Admin Dose 40 MG; Start 06/24/16 at 13:30; Status Future Hold Hydromorphone HCl (Dilaudid WRAPPING MACHINE OPERATOR) 0.2 MG/HR CONTINUOUS R... Q4PCA IV Last administered on 06/30/16 23:47; Admin Dose 6 MG; Start 06/26/16 at 14:00; Status Future hold Trazodone HCl (Desyrel) 25 mg HS PRN PO INSOMNIA Last administered on 06/29/16 22:14; Admin Dose 25 MG; Start 06/26/16 at 14:00 Dexamethasone (Decadron) 6 mg Q6 IV Last administered on 07/01/16 05:52; Admin Dose 6 MG; Start 06/27/16 at 00:00 Guaifenesin (Robitussin Liquid Cup) 200 mg Q4H PRN PO COUGH; Start 06/26/16 at 21:00 Metoprolol Tartrate (Lopressor) 25 mg BID PO Last administered on 06/30/16 20: 39; Admin Dose 25 MG; Start 06/27/16 at 21:00 Metoprolol Tartrate (Lopressor) 5 mg Q4H PRN IV HR>110 Hold SBP<100; Start 06/27 at 13:00 Amiodarone HCl (Cordarone) 200 mg BID PO Last administered on 06/30/16 20:39; Admin Dose 200 MG; Start 06/27/16 at 13:00 Enoxaparin Sodium 40 mg 40 mg Q12 SC Last administered on 07/01/16 10:10; Admin Dose 40 MG; Start 06/28/16 at 21:00 Potassium Chloride/Dextrose/ Sod Cl (D5-1/2ns + KCl 20 Meq) 1,000 ml @ 40 mls/ hr Q24H IV Last administered on 07/01/16 05:52; Admin Dose 40 MLS/HR; Start 06/28/16 at 20:00 Lorazepam (Ativan) 1 mg Q4 PRN IV ANXIETY; Start 07/01/16 at 09:30 ELLE LIND Jul 01, 2016 11:25
[2016-07-01] MEDS ORDERED: morphine (DRIP) 100 MG/D5W 100 ML IV SCH (13:00)
--- NOTE | 2016-07-01 13:41 | PN ---
DATE: 07/01/2016 Ms. Muse is now noncommunicative and actively dying. Her family members are at her bedside. They are all in agreement to respect her wishes that is not to pursue any aggressive intervention and to a comfortable natural without any heroic measures. The patient's daughter and 2 sisters a re in the room in attendance as well as grandchildren. EXAMINATION: She is having agonal respirations, at this point, she is nonverbal. There is no spon taneous purposeful movements. She appeared to be otherwise comfortable. ASSESSMENT/PLAN: We will respect her wishes and just proceed with just comfort measures at this poi nt. I have spoken to family members in detail. We will continue to support their wishes and patien t's wishes. We will change her current Dilaudid to a low dose morphine drip and low dose of Ativan a s needed. Dictated By: CHELSEA VINES MD LP/NTS Conf#: [id number] DID#: [id number]
--- NOTE | 2016-07-01 14:00 | CONS ---
Date/Time of Note Date/Time of Note DATE: 07/01/16 TIME: 13:57 Assessment/Plan Assessment/Plan Chief Complaint/Hosp Course The patient is a 60 year old woman with locally advanced esophageal cancer with history of radiation pneumonitis, most recently on xeloda 1500 mg PO BID, now readmitted for hypoxemia and pain. CT scan revealed bilateral enlarging hilar masses. #Respiratory distress -pt now not arousable. on Dilaudid drip and comfort measures # Bilateral Hilar masses, concerning for malignancy - These were going to be biopsied but in speaking with radiology there is significant risk associated with the biopsy given her history of radiation. Furthermore, even though pleural fluid cytology is negative it appears that the cancer has also spread to L1. Given her metastatic that is not responding to current therapy and the fact that patient is extremely debilitated, I agree with palliative care measures and hospice care. I appreciate Dr. Sánchez's involvement in her pain management and goals of care conversations. Patient has agreed to hospice care. on comfort measures #intractable pain -palliative care / pain management has been consulted to assist with this. was on a Dilaudid ZOOGLER which is now on hold for patient's afib # Esophageal cancer - Ok to hold xeloda for now while being treated for pneumonia, patient was not taking at home for the past 4 days due to lack of appetite and inability to eat. # Afib -on Cardizem drip Approximate 40 min were spent at patient's bedside and in coordination of her care Problems: Consultation Date/Type/Reason Admit Date/Time Jun 19, 2016 at 03:07 Initial Consult Date 06/20/16 Type of Consultation: hematology Reason for Consultation esophageal cancer Referring Provider: OK LOZANO MD 24 HR Interval Summary Free Text/Dictation pt is now unresponsive Exam/Review of Systems Vital Signs Vitals Vital Signs Date Time Temp Pulse Resp B/P Pulse Ox O2 Delivery O2 Flow Rate FiO2 07/01/16 12:22 89 07/01/16 11:40 98.2 19 113/70 96 07/01/16 09:00 Simple Mask 12.0 06/30/16 05:23 28 Intake and Output 06/30/16 06/30/16 07/01/16 15:00 23:00 07:00 Intake Total 100 ml 240 ml 350 ml Balance 100 ml 240 ml 350 ml Exam Constitutional: non-verbal, other (cachetic, not arousable) Head: normocephalic Eyes: nl conjunctiva ENMT: nl external ears & nose, nl lips & teeth Neck: supple Respiratory: crackles/rales, diminished breath sounds, labored breathing Cardiovascular: nl pulses, other, regular rate and rhythm Gastrointestinal: soft Musculoskeletal: nl extremities to inspection, nl gait and stance Extremities: normal pulses Results Result Diagram: 07/01/16 0542 Results 24 hrs Laboratory Tests Test 07/01/16 05:42 Activated Partial Thromboplast Time 29.5 Band Neutrophils % 1.0 Basophils # Basophils % Blood Morphology Comment Differential Comment MANUAL DIFF Eosinophils # Eosinophils % Hematocrit 29.7 L Hemoglobin 9.1 L INR International Normalized Ratio 1.25 Lymphocytes # 0.2 L Lymphocytes % 1.0 L Mean Corpuscular Hemoglobin 25.9 L Mean Corpuscular Hemoglobin Concent 30.8 L Mean Corpuscular Volume 84.3 Mean Platelet Volume 6.8 L Monocytes # 0.7 Monocytes % 3.0 Neutrophils # 22.0 H Neutrophils % 95.0 H Nucleated Red Blood Cells # Nucleated Red Blood Cells % Platelet Count 666 H Prothrombin Time 15.8 H Prothrombin Time Ratio 1.2 Red Blood Count 3.52 L Red Cell Distribution Width 17.2 H White Blood Count 23.2 #H Medications Medications Current Medications Potassium Chloride/Dextrose/ Sod Cl 1,000 ml @ 40 mls/hr Q24H IV Last administered on 07/01/16t 05:52; Admin Dose 40 MLS/HR; Start 06/28/16 at 20:00 Morphine Sulfate/ Dextrose (morphine) 100 ml @ 1 mls/hr TITRATE IV ; Start at 13:00 Lorazepam (Ativan) 1 mg Q2H PRN IV SEDATION; Start 07/01/16 at 13:00 NISSA MCNALLY M.D. Jul 01, 2016 14:00
[2016-07-01] MEDS ORDERED: ACETAMINOPHEN 650 MG SUPP PR PRN (16:30)
[2016-07-01] MEDS ORDERED: ONDANSETRON 4 MG INJ IV PRN (16:30)
--- NOTE | 2016-07-01 16:55 | PN ---
Date/Time of Note Date/Time of Note DATE: 07/01/16 TIME: 16:53 Assessment/Plan VTE Prophylaxis VTE Prophylaxis Intervention: other Lines/Catheters IV [facility] port a cath Urinary Cath still in place: No Assessment/Plan Chief Complaint/Hosp Course IMPRESSION: 1. Lung infiltrate./pleural effusion s/p thoracentesis/lung mass res distress 2. The patient has res insufficiency. 3. History of stent placement. 4. History of dyspepsia. 5. History of peptic ulcer disease. 6. History of anemia. 7. History of blood transfusion. 8. History of chemotherapy. 9. History of Port-A-Cath placement. 10. History of multiple episodes of possible aspiration pneumonia. 11 lung mass poss mets PLAN comfort care per bridges Problems: Subjective 24 Hr Interval Summary Subjective hx not possible: other (d/w family now comfort care ok) Exam/Review of Systems Vital Signs Vitals Vital Signs Date Time Temp Pulse Resp B/P Pulse Ox O2 Delivery O2 Flow Rate FiO2 07/01/16 16:32 92 07/01/16 16:13 98.5 20 118/67 91 07/01/16 09:00 Simple Mask 12.0 06/30/16 05:23 28 Intake and Output 06/30/16 06/30/16 07/01/16 15:00 23:00 07:00 Intake Total 100 ml 240 ml 350 ml Balance 100 ml 240 ml 350 ml Exam Respiratory: diminished breath sounds Cardiovascular: regular rate and rhythm Gastrointestinal: soft Musculoskeletal: nl extremities to inspection Results Result Diagram: 07/01/16 0542 Results 24 hrs Laboratory Tests Test 07/01/16 05:42 Activated Partial Thromboplast Time 29.5 Band Neutrophils % 1.0 Basophils # Basophils % Blood Morphology Comment Differential Comment MANUAL DIFF Eosinophils # Eosinophils % Hematocrit 29.7 L Hemoglobin 9.1 L INR International Normalized Ratio 1.25 Lymphocytes # 0.2 L Lymphocytes % 1.0 L Mean Corpuscular Hemoglobin 25.9 L Mean Corpuscular Hemoglobin Concent 30.8 L Mean Corpuscular Volume 84.3 Mean Platelet Volume 6.8 L Monocytes # 0.7 Monocytes % 3.0 Neutrophils # 22.0 H Neutrophils % 95.0 H Nucleated Red Blood Cells # Nucleated Red Blood Cells % Platelet Count 666 H Prothrombin Time 15.8 H Prothrombin Time Ratio 1.2 Red Blood Count 3.52 L Red Cell Distribution Width 17.2 H White Blood Count 23.2 #H Medications Medications Current Medications Morphine Sulfate/ Dextrose (morphine) 100 ml @ 1 mls/hr TITRATE IV Last administered on 07/01/16t 14:21; Admin Dose 1 MLS/HR; Start 07/01/16 at 13:00 Lorazepam (Ativan) 1 mg Q2H PRN IV ANXIETY; Start 07/01/16 at 13:00 Acetaminophen (Tylenol Supp) 650 mg Q4H PRN [place] TEMP > 100; Start 07/01/16 at 16: 30 Ondansetron HCl (Zofran Inj) 4 mg Q4H PRN IV NAUSEA AND/OR VOMITING; Start 07/01 at 16:30 Bisacodyl (Dulcolax Supp) 10 mg DAILY PRN MT CONSTIPATION; Start 07/01/16 at 17: 00 Atropine Sulfate (Atropine 1% Oph) 2 drop Q2H PRN SL SECRETIONS; Start 07/01/16 at 17:00 OK LOZANO MD Jul 01, 2016 16:55
[2016-07-01] MEDS ORDERED: BISACODYL 10 MG SUPP PR PRN (17:00)
[2016-07-01] MEDS ORDERED: ATROPINE 1% 5 ML OPH SL PRN (17:00)
--- NOTE | 2016-07-01 18:04 | CONS ---
Date/Time of Note Date/Time of Note DATE: 07/01/16 TIME: 18:02 Assessment/Plan Assessment/Plan Additional Assessment/Plan Chief Complaint/Hosp Course Impression 1. Esophageal cancer, spreading into lungs. 2. Pleural effusion, status post thoracocentesis. 3. Cachexia. 4. Dysphagia, secondary to blockage of the stent. 5. Old healed rib fracture. 6. Chronic pain syndrome 7. atrial fibrillation with rapid response and drop in BP Plan continue IVF pt.not stable for endoscopic procedure. ?comfort measure Consultation Date/Type/Reason Admit Date/Time Jun 19, 2016 at 03:07 Initial Consult Date 06/20/16 Type of Consultation: hematology Referring Provider: OK LOZANO MD 24 HR Interval Summary Subjective hx not possible: pt critical Exam/Review of Systems Vital Signs Vitals Vital Signs Date Time Temp Pulse Resp B/P Pulse Ox O2 Delivery O2 Flow Rate FiO2 07/01/16 16:32 92 07/01/16 16:13 98.5 20 118/67 91 07/01/16 09:00 Simple Mask 12.0 06/30/16 05:23 28 Intake and Output 06/30/16 06/30/16 07/01/16 15:00 23:00 07:00 Intake Total 100 ml 240 ml 350 ml Balance 100 ml 240 ml 350 ml Exam Constitutional: alert, oriented, well developed Psych: nl mood/affect, no complaints Head: atraumatic, normocephalic Eyes: EOMI, PERRL, nl conjunctiva, nl lids, nl sclera ENMT: nl external ears & nose, nl lips & teeth, nl nasal mucosa & septum Neck: non-tender, supple Respiratory: clear to auscultation, normal air movement Cardiovascular: nl pulses, regular rate and rhythm Gastrointestinal: nl liver, spleen, non-tender, soft Musculoskeletal: nl extremities to inspection, nl gait and stance Extremities: normal pulses Neurological: [employer] II-XII intact, nl mental status, nl speech, nl strength Skin: nl turgor, No rash or lesions Lymph: nl lymph nodes Results Result Diagram: 07/01/16 0542 Results 24 hrs Laboratory Tests Test 07/01/16 05:42 Activated Partial Thromboplast Time 29.5 Band Neutrophils % 1.0 Basophils # Basophils % Blood Morphology Comment Differential Comment MANUAL DIFF Eosinophils # Eosinophils % Hematocrit 29.7 L Hemoglobin 9.1 L INR International Normalized Ratio 1.25 Lymphocytes # 0.2 L Lymphocytes % 1.0 L Mean Corpuscular Hemoglobin 25.9 L Mean Corpuscular Hemoglobin Concent 30.8 L Mean Corpuscular Volume 84.3 Mean Platelet Volume 6.8 L Monocytes # 0.7 Monocytes % 3.0 Neutrophils # 22.0 H Neutrophils % 95.0 H Nucleated Red Blood Cells # Nucleated Red Blood Cells % Platelet Count 666 H Prothrombin Time 15.8 H Prothrombin Time Ratio 1.2 Red Blood Count 3.52 L Red Cell Distribution Width 17.2 H White Blood Count 23.2 #H Medications Medications Current Medications Morphine Sulfate/ Dextrose (morphine) 100 ml @ 1 mls/hr TITRATE IV Last administered on 07/01/16t 14:21; Admin Dose 1 MLS/HR; Start 07/01/16 at 13:00 Lorazepam (Ativan) 1 mg Q2H PRN IV ANXIETY; Start 07/01/16 at 13:00 Acetaminophen (Tylenol Supp) 650 mg Q4H PRN RI TEMP > 100; Start 07/01/16 at 16: 30 Ondansetron HCl (Zofran Inj) 4 mg Q4H PRN IV NAUSEA AND/OR VOMITING; Start 07/01 at 16:30 Bisacodyl (Dulcolax Supp) 10 mg DAILY PRN RI CONSTIPATION; Start 07/01/16 at 17: 00 Atropine Sulfate (Atropine 1% Oph) 2 drop Q2H PRN SL SECRETIONS; Start 07/01/16 at 17:00 TIERRA LERMA MD Jul 01, 2016 18:04
--- NOTE | 2016-07-01 22:33 | HP ---
DATE OF ADMISSION: 06/19/2016 Patient is being admitted under [facility] level of care. HISTORY OF PRESENT ILLNESS: History been obtained from medical record and discussion with his nurse . The patient is a 60-year-old female with locally advanced esophageal cancer with history of radia tion pneumonitis, was recently receiving Xeloda. The patient was admitted with hypoxemia and a CT s can had shown bilateral enlarging hilar mass. The patient underwent with Dr. Davila and diagnosed wi th metastatic esophageal cancer. The patient was extremely debilitated and was seen by Dr. Sánchez from palliative care standpoint. The patient's family decided to put her in hospice care. The pat ient also was seen by Dr. Barron from GI standpoint who, again, thought the patient was too sick for any endoscopic procedure. The patient did not have any recent bleeding from any site. No reported fever or chills in the last 24 hours. No reported vomiting. REVIEW OF SYSTEMS: Limited, as patient was noncommunicative and on morphine drip. PAST MEDICAL HISTORY: As stated above. In addition, the patient has history of esophageal stent, s tatus post also chemotherapy for esophageal CA. PAST SURGICAL HISTORY: None. FAMILY HISTORY: Noncontributory. SOCIAL HISTORY: No smoking, no alcohol. PHYSICAL EXAMINATION: GENERAL: Found the patient to be lethargic. VITAL SIGNS: Temperature 98.5, pulse 90, respirations 20, blood pressure 118/67. The patient is on 15 L of oxygen. O2 sat is 91%. HEENT: Atraumatic, normocephalic. Conjunctivae and lids are normal. Nose and ears normal external ly. NECK: No mass. CHEST: Revealed diminished air entry at bases. CARDIOVASCULAR: S1, S2 normal. No murmur. ABDOMEN: Soft, nondistended. EXTREMITIES: No leg edema, no clubbing, cyanosis. NEUROLOGIC: No useful examination was possible. LABORATORY DATA: Done this morning: WBC 23.2, hemoglobin 9.1, platelets 666. IMPRESSION: Metastatic esophageal cancer. PLAN: The patient admitted under hospice care and will be started on morphine drip. The patient is currently on 1 mg an hour of morphine drip, which will be titrated every hour to provide comfort ca re. The patient will be given atropine drops for secretion and Ativan 1 mg q.2 hours p.r.n. for anx iety. I will continue to optimize comfort care. The patient remains terminally ill. We will baljinder nue to follow. Plan of care discussed with [facility] nurse. Dictated By: REYES PINEDA/NTS Conf#: [id number] DID#: [id number] CC: HECTOR WINSTON MD;*EndCC*
--- NOTE | 2016-07-02 16:55 | QN ---
Documentation Comment [id number] OK LOZANO MD Jul 02, 2016 16:55
--- NOTE | 2016-07-02 21:28 | DES ---
DATE OF ADMISSION: 06/19/2016 DATE OF : 07/02/2016 CAUSE OF : Metastatic esophageal cancer. REASON FOR ADMISSION AND HOSPITAL COURSE: The patient was a 60-year-old female with locally advance d esophageal cancer with history of radiation pneumonitis. The patient was currently receiving Xelo da. The patient was admitted with hypoxemia and workup included a CT scan of the chest, which revea led bilateral enlarging hilar masses. The patient was seen by Dr. Davila and was diagnosed with meta static esophageal cancer. The patient was not a candidate for any endoscopic procedure. The patien t also was hypoxemic. The patient was seen by Dr. Sánchez from palliative care and the patient's f amily decided to put her on hospice. The patient was started on morphine drip. The patient also st arted on atropine drops for secretions, Ativan for anxiety, Zofran for vomiting. The patient, on at 0050, was found to have no pulse or respirations. Pupils were fixed and dilated. The p atient was unresponsive and was pronounced by supervisor frame assembly. Dictated By: RYEES PINEDA/HOWIE Conf#: [id number] DID#: [id number]
--- NOTE | 2016-07-02 21:36 | DS ---
DATE OF ADMISSION: 06/19/2016 DATE OF DISCHARGE: 07/02/2016 HOSPITAL COURSE: The patient is a female with history of metastatic esophageal cancer, was admitted for aspiration pneumonia, was seen by Dr. Davila in consultation and noted to have lung mass. The p atient was not considered a candidate for any surgery and chemotherapy. Comfort care and hospice wa s started. The patient was seen by Dr. Sánchez in consultation and started on pain medication. Ev entually, she . At the time of , the diagnoses include: 1. Cardiorespiratory arrest. 2. Metastatic esophageal carcinoma. 3. Lung metastasis. 4. Dehydration. 5. Malnutrition. 6. Anemia. 7. Aspiration pneumonia. DISPOSITION: The patient . Dictated By: OK LOZANO MD BS/NTS Conf#: [id number] DID#: [id number] CC: HECTOR WINSTON MD;*EndCC*
== END 2016-07-02 05:01 | disposition expired | DRG 178 ==
LOC: MS2 03:07 → TEL 06-27 08:17 → PP2 07-01 21:14
PROVIDERS: ADMIT Internal Medicine Nephrology; ATTEND Internal Medicine Nephrology
PROC: 0W993ZX Drainage of Right Pleural Cavity, Percutaneous Approach, Diagnostic (ICD-10-PCS; principal; 2016-06-22)
DX: J69.0 Pneumonitis due to inhalation of food and vomit (principal); R64 Cachexia; C78.02 Secondary malignant neoplasm of left lung; I95.9 Hypotension, unspecified; E46 Unspecified protein-calorie malnutrition; C15.9 Malignant neoplasm of esophagus, unspecified; J90 Pleural effusion, not elsewhere classified; I48.92 Unspecified atrial flutter; Z68.1 Body mass index [BMI] 19.9 or less, adult; E86.0 Dehydration; D64.9 Anemia, unspecified; G89.4 Chronic pain syndrome; R09.02 Hypoxemia; I48.0 Paroxysmal atrial fibrillation; Z92.3 Personal history of irradiation; Z51.5 Encounter for palliative care
CPT/HCPCS: 32555; 36600; 71010; 71020; 71250; 80053; 80061; 82803; 82945; 82962; 83615; 83986; 84157; 84443; 84484; 85025; 85610; 85730; 87070; 87102; 87116; 88104; 88305; 88313; 89050; 89220; 93005; 93306; 94640; 94664; 94668; C9113; J0282; J0456; J0696; J1100; J1170; J1650; J1940; J2060; J2270; J2405; J2543; J2997; J3480; J7040